=== PATIENT | male | born 1945 | race Hispanic/Latino ===

== ENCOUNTER 2018-08-12 15:59 | Observation (INO) | payer MEDICARE ==
--- NOTE | 2018-08-12 16:18 | Emergency Department Report ---
Alice Doc - Documentation Documentation: 73 yo with left foot surgery. 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 Reports foot pain and redness with swelling. C/o cp to mid chest that feels like pulling pain.Takes asa daily and took this morning Fels nausea Patient has DM on insulin, HTN, CAD with BYpass surgery. Poor historian EXT: rt foot with surgical wound. dorsal and plantar area. Erythema extending to rt ankle and ttp Lungs: CTAB his initial assessment diagnostic orders/clinical plan/treatment (s) is/Are subject change based on patient's health status, clinical progression and re- assessment by fellow clinical providers in the ED. Further treatment and work-up at subsequent clinical providers discetion. Patient/guardians urged not to elope from their condition may be serious if not clinically assessed and managed. Inital order include:Labs, xr, ekg
[2018-08-12 17:13] LABS: Basophils # (Auto) 0.2 K/mm3 (0.0-0.1); Basophils % (Auto) 1.7 % (0.0-1.8); Eosinophils # (Auto) 0.7 K/mm3 (0.0-0.4); Eosinophils % (Auto) 5.1 % (0.0-4.3); Hematocrit 43.9 % (35.5-45.6); Hemoglobin 14.9 gm/dl (11.8-15.2); Lymphocytes # (Auto) 3.5 K/mm3 (1.2-5.4); Lymphocytes % (Auto) 25.6 % (13.4-35.0); Mean Corpuscular HGB Conc 34 % (32-34); Mean Corpuscular Volume 84 fl (84-94); Monocytes # (Auto) 0.9 K/mm3 (0.0-0.8); Monocytes % (Auto) 6.6 % (0.0-7.3); Platelet Count 224 K/mm3 (140-440); Red Blood Count 5.23 M/mm3 (3.65-5.03); Red Cell Distribution Width 15.5 % (13.2-15.2)
[2018-08-12] MEDS ORDERED: PEPCID IV ONE (17:40)
[2018-08-12] MEDS ORDERED: BABY ASPIRIN PO ONE (17:40)
--- NOTE | 2018-08-12 17:40 | Emergency Department Report ---
ED Chest Pain HPI - General Chief Complaint: Chest Pain Stated Complaint: CHEST PAIN/FOOT PAIN Time Seen by Provider: 08/12/18 16:10 Source: patient, RN notes reviewed, old records reviewed Mode of arrival: Ambulatory Limitations: No Limitations - History of Present Illness Initial Comments: This is a 73-year-old gentleman. Patient typically follows with [facility]. The patient's past medical history includes heart disease, status post cardiac bypass, high cholesterol, diabetes, hypertension, chronic pain Patient received a cardiac catheterization in 2014, at this hospital, which demonstrated patent grafts, normal left ventricular function, diffuse arterial disease, risk factor modification was recommended at that time. He presents today with complaint of chest pain and burning. The pain is substernal and epigastric. It does not radiate to the back, arms or neck. There is no vomiting or diaphoresis. Patient denies shortness of breath. The patient denies DVT, pulmonary embolus risk factors. The pain started last nigh t. It is burning and "feels like indigestion." Patient endorses compliance with all his medications including aspirin. He endorses a secondary complaint of dorsal right foot erythema. It started w ithin the past 24 hours. His primary care doctor put him on Keflex. There is no antecedent trauma that he can recall. MD Complaint: chest pain, other -: Gradual, hour(s) Pain Location: substernal, epigastric Pain Radiation: none Severity: moderate Severity scale (0 -10): 7 Quality: other Consistency: intermittent Improves With: nothing Worsens With: nothing Aspirin use within the Past 7 Days: (1) Yes - Related Data On Oral Contraceptives: No Home Medications Medication Instructions Recorded Confirmed Last Taken ALPRAZolam [Xanax TAB] 1 mg PO TID PRN 11/28/13 05/21/15 05/20/15 Insulin Detemir [Levemir Flexpen] 60 units SQ HS 11/28/13 05/21/15 05/20/15 Insulin Lispro [HumaLOG VIAL] 20 units SQ TID 11/28/13 05/21/15 05/20/15 Methadone HCl 10 mg PO TID PRN 11/28/13 05/21/15 05/20/15 Aspirin [Aspirin BABY CHEW TAB] 81 mg PO QDAY 05/21/15 05/21/15 05/21/15 Chlorthalidone [Thalitone] 25 mg PO QDAY 05/21/15 05/21/15 05/20/15 Ezetimibe [Zetia] 10 mg PO QDAY 05/21/15 05/21/15 05/20/15 Fenofibrate [Tricor] 145 mg PO QDAY 05/21/15 05/21/15 05/20/15 Losartan [Cozaar] 100 mg PO QDAY 05/21/15 05/21/15 05/20/15 Metoprolol [Lopressor TAB] 12.5 mg PO BID 05/21/15 05/21/15 05/20/15 Allergies Allergy/AdvReac Type Severity Reaction Status Date / Time No Known Allergies Allergy Unverified 11/28/13 10:06 Heart Score - HEART Score History: Slightly suspicious EKG: Non-specific Age: > 65 Risk factors: > 3 risk factors or hx of atherosclerotic disease Troponin: < normal limit HEART Score: 5 - Critical Actions Critical Actions: 4-6 pts:12-16.6% risk of adverse cardiac event. Should be admitted ED Review of Systems ROS: Stated complaint: CHEST PAIN/FOOT PAIN Other details as noted in HPI Constitutional: denies: fever, malaise Eyes: denies: vision change ENT: denies: epistaxis Respiratory: denies: cough, shortness of breath Cardiovascular: chest pain Gastrointestinal: denies: nausea, vomiting Genitourinary: denies: dysuria Musculoskeletal: arthralgia, myalgia Skin: rash Neurological: denies: weakness Psychiatric: denies: anxiety ED Past Medical Hx - Past Medical History Hx Hypertension: Yes Hx Congestive Heart Failure: No Hx Diabetes: Yes Hx HIV: No - Surgical History Hx Open Heart Surgery: Yes Additional Surgical History: foot - Social History Smoking Status: Current Every Day Smoker Substance Use Type: None - Medications Home Medications: Home Medications Medication Instructions Recorded Confirmed Last Taken Type ALPRAZolam [Xanax TAB] 1 mg PO TID PRN 11/28/13 05/21/15 05/20/15 History Insulin Detemir [Levemir Flexpen] 60 units SQ HS 11/28/13 05/21/15 05/20/15 History Insulin Lispro [HumaLOG VIAL] 20 units SQ TID 11/28/13 05/21/15 05/20/15 History Methadone HCl 10 mg PO TID PRN 11/28/13 05/21/15 05/20/15 History Aspirin [Aspirin BABY CHEW TAB] 81 mg PO QDAY 05/21/15 05/21/15 05/21/15 History Chlorthalidone [Thalitone] 25 mg PO QDAY 05/21/15 05/21/15 05/20/15 History Ezetimibe [Zetia] 10 mg PO QDAY 05/21/15 05/21/15 05/20/15 History Fenofibrate [Tricor] 145 mg PO QDAY 05/21/15 05/21/15 05/20/15 History Losartan [Cozaar] 100 mg PO QDAY 05/21/15 05/21/15 05/20/15 History Metoprolol [Lopressor TAB] 12.5 mg PO BID 05/21/15 05/21/15 05/20/15 History ED Physical Exam - General Limitations: No Limitations General appearance: alert, in no apparent distress - Head Head exam: Present: atraumatic, normocephalic - Eye Eye exam: Present: normal appearance, EOMI. Absent: nystagmus - ENT ENT exam: Present: normal exam, normal orophraynx, mucous membranes moist, normal external ear exam - Neck Neck exam: Present: normal inspection, full ROM. Absent: tenderness, meningismus - Respiratory Respiratory exam: Present: normal lung sounds bilaterally. Absent: respiratory distress - Cardiovascular Cardiovascular Exam: Present: regular rate, normal rhythm, normal heart sounds. Absent: bradycardia, tachycardia, irregular rhythm, systolic murmur, diastolic murmur, rubs, gallop - GI/Abdominal GI/Abdominal exam: Present: soft. Absent: distended, tenderness, guarding, rebound, rigid, pulsatile mass - Rectal Rectal exam: Present: deferred - Extremities Exam Extremities exam: Present: full ROM, other (2+ pulses noted in the bilateral upper extremities. There is no long bony tenderness. Muscular compartments soft. Venous stasis discoloration noted in the bilateral lower extremities.). Absent: normal inspection (there is right dorsal foot erythema. There is no streaking. Compartment soft. No pus or streaking noted.) - Back Exam Back exam: Present: normal inspection, full ROM. Absent: tenderness, CVA tenderness (R), paraspinal tenderness, vertebral tenderness - Neurological Exam Neurological exam: Present: alert, oriented X3, CN II-XII intact, normal gait, other (Extraocular movements intact. Tongue midline. No facial droop. Facial sensation intact to light touch in the V1, V2, V3 distribution bilaterally. 5 and 5 strength in 4 extremities.. Sensation is intact to light touch in 4 extremities.). Absent: motor sensory deficit - Psychiatric Psychiatric exam: Present: normal affect, normal mood - Skin Skin exam: Present: warm, dry, erythema ED Course Vital Signs 08/12/18 16:09 Temperature 98 F Pulse Rate 78 Respiratory 16 Rate Blood Pressure 154/70 O2 Sat by Pulse 97 Oximetry - Reevaluation(s) Reevaluation #1: 08/12/18 18:32 Differential diagnosis, including but not limited to: GERD, gastritis, hiatal hernia, reflux, pneumonia, pneumothorax, acute coronary syndrome, right foot cellulitis, biliary disease Assessment and plan: 73-year-old gentleman with known coronary artery disease, who is not tachycardic, who is not hypoxic with no pulmonary embolus or DVT risk factors, is low risk by well's criteria. There is no right upper quadrant tenderness, and the patient has had elevated transaminases in the past. I doubt acute biliary disease clinically. There is a negative Crowley sign. A right upper quadrant ultrasound has been ordered. I will defer to the inpatient team to follow-up this test. Case discussed with covering cardiology, Dr. Billings, who agrees to see the patient in consultation. Patient has a simple dorsal uncomplicated right foot cellulitis and is currently taking Keflex. No evidence of systemic bacterial infection at this point in time, we will continue his Keflex. Case presented to the Hospital physician, Dr. Hogue, who accepts the patient to the medical service. HEMA score - Hema Score Age > 65: (1) Yes Aspirin use within the Past 7 Days: (1) Yes 3 or more CAD Risk Factors: (1) Yes 2 or more Angina events in past 24 hrs: (0) No Known CAD with more than 50% Stenosis: (1) Yes Elevated Cardiac Markers: (0) No ST Deviation Greater than 0.5mm: (0) No HEMA Score: 4 ED Medical Decision Making - Lab Data Result diagrams: 08/12/18 16:59 08/12/18 16:59 Vital Signs 08/12/18 16:09 Temperature 98 F Pulse Rate 78 Respiratory 16 Rate Blood Pressure 154/70 O2 Sat by Pulse 97 Oximetry Lab Results 08/12/18 08/12/18 Range/Units 16:59 16:59 WBC 13.5 H (4.5-11.0) K/mm3 RBC 5.23 H (3.65-5.03) M/mm3 Hgb 14.9 (11.8-15.2) gm/dl Hct 43.9 (35.5-45.6) % MCV 84 (84-94) fl MCH 29 (28-32) pg MCHC 34 (32-34) % RDW 15.5 H (13.2-15.2) % Plt Count 224 (140-440) K/mm3 Lymph % (Auto) 25.6 (13.4-35.0) % [place] % (Auto) 6.6 (0.0-7.3) % Eos % (Auto) 5.1 H (0.0-4.3) % Baso % (Auto) 1.7 (0.0-1.8) % Lymph # 3.5 (1.2-5.4) K/mm3 [place] # 0.9 H (0.0-0.8) K/mm3 Eos # 0.7 H (0.0-0.4) K/mm3 Baso # 0.2 H (0.0-0.1) K/mm3 Seg Neutrophils % 61.0 (40.0-70.0) % Seg Neutrophils # 8.3 H (1.8-7.7) K/mm3 Sodium 134 L (137-145) mmol/L Potassium 3.7 (3.6-5.0) mmol/L Chloride 95.7 L (98-107) mmol/L Carbon Dioxide 24 (22-30) mmol/L Anion Gap 18 mmol/L BUN 23 H (9-20) mg/dL Creatinine 1.4 (0.8-1.5) mg/dL Estimated GFR 50 ml/min BUN/Creatinine Ratio 16 % Glucose 258 H (75-100) mg/dL Calcium 9.5 (8.4-10.2) mg/dL Total Bilirubin 0.50 (0.1-1.2) mg/dL AST 110 H (5-40) units/L ALT 342 H (7-56) units/L Alkaline Phosphatase 173 H (35-129) units/L Troponin T < 0.010 (0.00-0.029) ng/mL Total Protein 7.1 (6.3-8.2) g/dL Albumin 4.1 (3.9-5) g/dL Albumin/Globulin Ratio 1.4 % - EKG Data -: EKG Interpreted by Me EKG shows normal: sinus rhythm Rate: normal - EKG Data 08/12/18 18:30 Sinus, 78 bpm, normal axis, QTC 448 ms, atrial enlargement, poor R wave progression, premature ventricular contractions, abnormal EKG, not consistent with ST elevation myocardial infarction, appears unchanged from prior EKG from 2015, with the exception of premature ventricular contractions. - Radiology Data Radiology results: pending, report reviewed, image reviewed interpreted by me: X-ray of the right foot suggests DJD, the distal end of the second metatarsal suggests erosion, possible subacute fracture. No foreign body noted, no obvious gas is noted. X-ray of the chest is negative for acute disease. Sternotomy, His findings are reviewed and appreciated. Critical care attestation.: If time is entered above; I have spent that time in minutes in the direct care of this critically ill patient, excluding procedure time. ED Disposition Clinical Impression: Chest pain, Diabetes, Cellulitis of right foot Disposition: OP ADMIT IP TO THIS HOSP Is pt being admited?: Yes Does the pt Need Aspirin: Yes Condition: Stable Instructions: Chest Pain (ED), Diabetes Mellitus Type 2 in Adults (ED) Referrals: PRIMARY CARE, [Primary Care Provider] - 3-5 Days
[2018-08-12] MEDS ORDERED: NITROSTAT SL PRN (17:41)
[2018-08-12] MEDS ORDERED: ALUM-MAG HYDROX-SIMETH 200-200-20MG/5ML PO ONE (17:41)
[2018-08-12] MEDS ORDERED: CARAFATE PO ONE (17:41)
[2018-08-12 18:02] LABS: Alanine Aminotransferase 342 units/L (7-56); Albumin 4.1 g/dL (3.9-5); BUN/Creatinine Ratio 16; Blood Urea Nitrogen 23 mg/dL (9-20); Calcium 9.5 mg/dL (8.4-10.2); Hemolysis Index 12
[2018-08-12] MEDS ORDERED: KEFLEX PO ONE (18:29)
--- NOTE | 2018-08-12 22:32 | XRay Report ---
XR FOOT 3+V RT CLINICAL INDICATION: Male, 73 years of age. foot pain/redness with recent surgery COMPARISON: None available. FINDINGS: 3 views right foot obtained. Bony irregularity of the second metatarsal head and proximal s econd phalanx. Some less likely postsurgical. Bony irregularities concerning for residual changes rel ated to infection. There is also subtle bony erosive changes at the medial margin of the third proxim al phalanx. Deformity of the third metatarsal head may be postsurgical. Mild narrowing of interphalangeal joints and first MTP joint. Small calcaneal spurs. IMPRESSION: 1. Portions of the second and third metatarsal heads are absent, possibly a surgical basis. Bony irre gularity at the second MTP joint and medial aspect of the proximal third phalanx are concerning for o steomyelitis. This document is electronically signed by Amber Roberts DO., August 12 2018 05:19:56 PM ET
--- NOTE | 2018-08-12 22:44 | XRay Report ---
PROCEDURE: XR CHEST ROUTINE 2V TECHNIQUE: PA and lateral chest radiographs were obtained. HISTORY: cp COMPARISONS: None. FINDINGS: There is no evidence of infiltrate, pneumothorax or pleural fluid collection. The cardiac is normal size. There is evidence of previous CABG procedure. There is atherosclerotic vascular calcification of the thoracic aorta. The bony structures are notable for median sternotomy wires in place. IMPRESSION: 1. No evidence of an acute pulmonary process. 2. Evidence of previous CABG procedure. This document is electronically signed by Dixie Cobos MD., August 12 2018 05:28:40 PM ET
[2018-08-12] MEDS ORDERED: MORPHINE IV PRN (23:11)
--- NOTE | 2018-08-12 23:20 | Ultrasound Report ---
PROCEDURE: US ABDOMEN LIMITED TECHNIQUE: Real-time sonography was performed of the right upper quadrant with image documentation. HISTORY: TRANSaminitis COMPARISON: None FINDINGS: Examination of the gallbladder demonstrates numerous echogenic shadowing mobile gallstones in the gal lbladder but no evidence for distention, wall thickening, or pericholecystic fluid. No sonographic M urphy's sign is elicited. Common bile duct is normal in diameter measuring 4.3 mm. The liver is normal and homogeneous in echogenicity without focal abnormality or intrahepatic biliary dilatation. The pancreas is not visualized due to bowel gas. The right kidney is normal in size without calculi or hydronephrosis. Right kidney measures 12.0 cm i n length. However, the echogenicity of the right kidney is slightly increased suggesting chronic medi jean pierre renal disease. Proximal aorta measures 2.2 cm in diameter. IMPRESSION: 1. Cholelithiasis without other findings of acute cholecystitis 2. Echogenicity right kidney is increased suggesting chronic medical renal disease This document is electronically signed by Denise Julian MD., August 12 2018 07:12:03 PM ET
[2018-08-13] MEDS ORDERED: DILAUDID IV PRN (00:15)
[2018-08-13] MEDS ORDERED: SODIUM CHLORIDE FLUSH SYRINGE 10 ML IV PRN (00:15)
[2018-08-13] MEDS ORDERED: ZOFRAN IV PRN (00:15)
[2018-08-13] MEDS ORDERED: PERCOCET 5/325 PO PRN (00:15)
[2018-08-13] MEDS: TYLENOL PO PRN ×2 (06:00→16:05)
[2018-08-13] MEDS: GLUCOPHAGE PO SCH ×2 (07:54→16:06)
--- NOTE | 2018-08-13 08:00 | History and Physical Report ---
History of Present Illness Date of examination: 08/12/18 Date of admission: 08/12/18 18:35 Chief complaint: Chest pain for 1 day History of present illness: 73-year-old gentleman.with past medical history of heart disease, status post cardiac bypass, high cholesterol, diabetes, hypertension, chronic received a cardiac catheterization in 2014, at this hospital, which demonstrated patent grafts, normal left ventricular function, diffuse arterial disease, risk factor modification was recommended at that time.Presents today with complaint of chest pain and burning. The pain is substernal and epigastric. It does not radiate to the back, arms or neck. There is no vomiting or diaphoresis. Patient denies shortness of breath. The patient denies DVT, pulmonary embolus risk factors. The pain started last night. It is burning and "feels like indigestion." Nacho dinora endorses compliance with all his medications including aspirin. Also complaints of dorsal right foot erythema. It started within the past 24 hours. His primary care doctor put him on Keflex. There is no antecedent trauma that he can recall. Past Medical History Hx Hypertension: Yes Hx Congestive Heart Failure: No Hx Diabetes: Yes Hx HIV: No Surgical History Hx Open Heart Surgery: Yes Additional Surgical History: foot Social History Smoking Status: Current Every Day Smoker Substance Use Type: None - Medications Home Medications: Home Medications Medication Instructions Recorded Confirmed Last Taken Type ALPRAZolam [Xanax TAB] 1 mg PO TID PRN 11/28/13 05/21/15 05/20/15 History Insulin Detemir [Levemir Flexpen] 60 units SQ HS 11/28/13 05/21/15 05/20/15 History Insulin Lispro [HumaLOG VIAL] 20 units SQ TID 11/28/13 05/21/15 05/20/15 History Methadone HCl 10 mg PO TID PRN 11/28/13 05/21/15 05/20/15 History Aspirin [Aspirin BABY CHEW TAB] 81 mg PO QDAY 05/21/15 05/21/15 05/21/15 History Chlorthalidone [Thalitone] 25 mg PO QDAY 05/21/15 05/21/15 05/20/15 History Ezetimibe [Zetia] 10 mg PO QDAY 05/21/15 05/21/15 05/20/15 History Fenofibrate [Tricor] 145 mg PO QDAY 05/21/15 05/21/15 05/20/15 History Losartan [Cozaar] 100 mg PO QDAY 05/21/15 05/21/15 05/20/15 History Metoprolol [Lopressor TAB] 12.5 mg PO BID 05/21/15 05/21/15 05/20/15 History Review of Systems ROS: Stated complaint: CHEST PAIN/FOOT PAIN Other details as noted in HPI Constitutional: denies: fever, malaise Eyes: denies: vision change ENT: denies: epistaxis Respiratory: denies: cough, shortness of breath Cardiovascular: chest pain Gastrointestinal: denies: nausea, vomiting Genitourinary: denies: dysuria Musculoskeletal: arthralgia, myalgia Skin: rash Neurological: denies: weakness Psychiatric: denies: anxiety Medications and Allergies Allergies Allergy/AdvReac Type Severity Reaction Status Date / Time No Known Allergies Allergy Unverified 11/28/13 10:06 Home Medications Medication Instructions Recorded Confirmed Last Taken Type ALPRAZolam [Xanax TAB] 1 mg PO TID PRN 11/28/13 08/12/18 05/20/15 History Insulin Detemir [Levemir Flexpen] 60 units SQ HS 11/28/13 08/12/18 05/20/15 History Insulin Lispro [HumaLOG VIAL] 20 units SQ TID 11/28/13 08/12/18 05/20/15 History Methadone HCl 10 mg PO TID PRN 11/28/13 08/12/18 05/20/15 History Aspirin [Aspirin BABY CHEW TAB] 81 mg PO QDAY 05/21/15 08/12/18 05/21/15 History Chlorthalidone [Thalitone] 25 mg PO QDAY 05/21/15 08/12/18 05/20/15 History Ezetimibe [Zetia] 10 mg PO QDAY 05/21/15 08/12/18 05/20/15 History Fenofibrate [Tricor] 145 mg PO QDAY 05/21/15 08/12/18 05/20/15 History Losartan [Cozaar] 100 mg PO QDAY 05/21/15 08/12/18 05/20/15 History Metoprolol [Lopressor TAB] 12.5 mg PO BID 05/21/15 08/12/18 05/20/15 History metFORMIN [Glucophage] 500 mg PO BID 08/12/18 08/12/18 Unknown History Active Meds: Active Medications Acetaminophen (Tylenol) 650 mg PO Q4H PRN PRN Reason: Pain MILD(1-3)/Fever >100.5/REBOLLEDO Last Admin: 08/13/18 06:00 Dose: 650 mg Documented by: Alprazolam (Xanax) 1 mg PO TID PRN PRN Reason: Anxiety Aspirin (Baby Aspirin) 81 mg PO QDAY [facility] Chlorthalidone (Thalitone) 25 mg PO QDAY [facility] Ezetimibe (Zetia) 10 mg PO QDAY [facility] Fenofibrate (Tricor) 145 mg PO QDAY [facility] Hydromorphone HCl (Dilaudid) 0.5 mg IV Q3H PRN PRN Reason: Pain , Severe (7-10) Insulin Glargine (Lantus) 60 units SUB-Q QHS [facility] Insulin Human Lispro (Humalog) 20 unit SUB-Q TIDAC [facility] Losartan Potassium (Cozaar) 100 mg PO QDAY [facility] Metformin HCl (Glucophage) 500 mg PO BIDDIAB [facility] Methadone HCl (Dolophine) 10 mg PO TID PRN PRN Reason: Pain Metoprolol Tartrate (Lopressor) 12.5 mg PO BID [facility] Morphine Sulfate (Morphine) 2 mg IV Q4H PRN PRN Reason: Pain, Moderate (4-6) Nitroglycerin (Nitrostat) 0.4 mg SL .Q5MIN PRN PRN Reason: Chest Pain Ondansetron HCl (Zofran) 4 mg IV Q8H PRN PRN Reason: Nausea And Vomiting Oxycodone/Acetaminophen (Percocet 5/325) 1 tab PO Q6H PRN PRN Reason: Pain, Moderate (4-6) Sodium Chloride (Sodium Chloride Flush Syringe 10 Ml) 10 ml IV BID [facility] Sodium Chloride (Sodium Chloride Flush Syringe 10 Ml) 10 ml IV PRN PRN PRN Reason: LINE FLUSH Exam - Constitutional Vitals: Temp Pulse Resp BP Pulse Ox 98.0 F 52 L 18 135/63 94 08/13/18 04:27 08/13/18 04:52 08/13/18 04:27 08/13/18 04:27 08/13/18 04:27 General appearance: Present: no acute distress, well-nourished - EENT Eyes: Present: PERRL ENT: hearing intact, clear oral mucosa - Neck Neck: Present: supple, normal ROM - Respiratory Respiratory effort: normal Respiratory: bilateral: CTA - Cardiovascular Heart rate: 78 Rhythm: regular Heart Sounds: Present: S1 & S2. Absent: rub, click - Extremities Extremities: no ischemia, pulses symmetrical, No edema Extremity abnormal: erythema (Rt Foot with impending abscess) Peripheral Pulses: within normal limits - Abdominal General gastrointestinal: Present: soft, non-tender, non-distended, normal bowel sounds Male genitourinary: Present: normal - Rectal Rectal Exam: deferred - Integumentary Integumentary: Present: clear, warm, dry - Musculoskeletal Musculoskeletal: gait normal, strength equal bilaterally - Psychiatric Psychiatric: appropriate mood/affect, intact judgment & insight - Neurologic Neurologic: CNII-XII intact, moves all extremities - Allied Health Allied health notes reviewed: nursing, case management Results - Labs CBC & Chem 7: 08/12/18 16:59 08/12/18 16:59 Labs: Laboratory Last Values WBC 13.5 K/mm3 (4.5-11.0) H 08/12/18 16:59 RBC 5.23 M/mm3 (3.65-5.03) H 08/12/18 16:59 Hgb 14.9 gm/dl (11.8-15.2) 08/12/18 16:59 Hct 43.9 % (35.5-45.6) 08/12/18 16:59 MCV 84 fl (84-94) 08/12/18 16:59 MCH 29 pg (28-32) 08/12/18 16:59 MCHC 34 % (32-34) 08/12/18 16:59 RDW 15.5 % (13.2-15.2) H 08/12/18 16:59 Plt Count 224 K/mm3 (140-440) 08/12/18 16:59 Lymph % (Auto) 25.6 % (13.4-35.0) 08/12/18 16:59 [place] % (Auto) 6.6 % (0.0-7.3) 08/12/18 16:59 Eos % (Auto) 5.1 % (0.0-4.3) H 08/12/18 16:59 Baso % (Auto) 1.7 % (0.0-1.8) 08/12/18 16:59 Lymph # 3.5 K/mm3 (1.2-5.4) 08/12/18 16:59 [place] # 0.9 K/mm3 (0.0-0.8) H 08/12/18 16:59 Eos # 0.7 K/mm3 (0.0-0.4) H 08/12/18 16:59 Baso # 0.2 K/mm3 (0.0-0.1) H 08/12/18 16:59 Seg Neutrophils % 61.0 % (40.0-70.0) 08/12/18 16:59 Seg Neutrophils # 8.3 K/mm3 (1.8-7.7) H 08/12/18 16:59 Sodium 134 mmol/L (137-145) L 08/12/18 16:59 Potassium 3.7 mmol/L (3.6-5.0) 08/12/18 16:59 Chloride 95.7 mmol/L (98-107) L 08/12/18 16:59 Carbon Dioxide 24 mmol/L (22-30) 08/12/18 16:59 Anion Gap 18 mmol/L 08/12/18 16:59 BUN 23 mg/dL (9-20) H 08/12/18 16:59 Creatinine 1.4 mg/dL (0.8-1.5) 08/12/18 16:59 Estimated GFR 50 ml/min 08/12/18 16:59 BUN/Creatinine Ratio 16 % 08/12/18 16:59 Glucose 258 mg/dL (75-100) H 08/12/18 16:59 POC Glucose 209 (70-105) H 08/13/18 07:22 Hemoglobin A1c 8.3 % (4-6) H 08/13/18 01:08 Calcium 9.5 mg/dL (8.4-10.2) 08/12/18 16:59 Total Bilirubin 0.50 mg/dL (0.1-1.2) 08/12/18 16:59 AST 110 units/L (5-40) H 08/12/18 16:59 ALT 342 units/L (7-56) H 08/12/18 16:59 Alkaline Phosphatase 173 units/L (35-129) H 08/12/18 16:59 Troponin T < 0.010 ng/mL (0.00-0.029) 08/12/18 16:59 Total Protein 7.1 g/dL (6.3-8.2) 08/12/18 16:59 Albumin 4.1 g/dL (3.9-5) 08/12/18 16:59 Albumin/Globulin Ratio 1.4 % 08/12/18 16:59 Lipase 47 units/L (13-60) 08/12/18 18:23 Short CBC 08/12/18 Range/Units 16:59 WBC 13.5 H (4.5-11.0) K/mm3 Hgb 14.9 (11.8-15.2) gm/dl Hct 43.9 (35.5-45.6) % Plt Count 224 (140-440) K/mm3 BMP 08/12/18 16:59 Sodium 134 L Potassium 3.7 Chloride 95.7 L Carbon Dioxide 24 BUN 23 H Creatinine 1.4 Glucose 258 H Calcium 9.5 Cardiac Enzymes 08/12/18 Range/Units 16:59 Troponin T < 0.010 (0.00-0.029) ng/mL Liver Function 08/12/18 Range/Units 16:59 Total Bilirubin 0.50 (0.1-1.2) mg/dL AST 110 H (5-40) units/L ALT 342 H (7-56) units/L Alkaline Phosphatase 173 H (35-129) units/L Albumin 4.1 (3.9-5) g/dL Assessment and Plan Advance Directives: Yes (Full code) VTE prophylaxis?: Chemical Plan of care discussed with patient/family: Yes - Patient Problems (1) Chest pain Current Visit: Yes Status: Acute Qualifiers: Chest pain type: unspecified Qualified Code(s): R07.9 - Chest pain, unspecified Plan to address problem: Chest pain r/o OR protocol (2) Cellulitis of right foot Current Visit: Yes Status: Acute Plan to address problem: Initiated on IV Unasyn and vancomycin Surgery consult for I/d (3) IDDM (insulin dependent diabetes mellitus) Current Visit: Yes Status: Chronic Plan to address problem: Cont home insulin and coverage (4) HTN (hypertension) Current Visit: Yes Status: Chronic Qualifiers: Hypertension type: essential hypertension Qualified Code(s): I10 - Essential (primary) hypertension Plan to address problem: Cont antihypertensives (5) HLD (hyperlipidemia) Current Visit: Yes Status: Chronic Qualifiers: Hyperlipidemia type: mixed hyperlipidemia Qualified Code(s): E78.2 - Mixed hyperlipidemia Plan to address problem: Cont Zetia and Fenofibrates (6) CAD (coronary artery disease) Current Visit: Yes Status: Chronic Qualifiers: Coronary Disease-Associated Artery/Lesion type: unspecified vessel or lesion type Plan to address problem: Cont ASA (7) DVT prophylaxis Current Visit: Yes Status: Acute Plan to address problem: On Lovenox and GI prophylaxis
[2018-08-13] MEDS ORDERED: VANCOMYCIN PHARMACY TO DOSE IV SCH (08:04)
[2018-08-13] MEDS: DOLOPHINE PO PRN ×2 (08:29→16:06)
[2018-08-13] MEDS: XANAX PO PRN ×2 (08:30→22:06)
[2018-08-13] MEDS: LOPRESSOR PO SCH ×2 (09:10→22:06)
[2018-08-13] MEDS: TRICOR PO SCH (09:10)
[2018-08-13] MEDS: ZETIA PO SCH (09:11)
[2018-08-13] MEDS: COZAAR PO SCH (09:12)
[2018-08-13] MEDS: HumaLOG SUB-Q SCH ×3 (09:14→16:13)
[2018-08-13] MEDS ORDERED: NON-FORMULARY (Losartan [Cozaar] 100 MG) PO SCH (10:00)
[2018-08-13] MEDS: VANCOMYCIN 1,250 MG in NACL 0.9% 250ML 250 ML IV SCH ×2 (10:11→22:05)
[2018-08-13] MEDS: THALITONE PO SCH (10:30)
[2018-08-13] MEDS: BABY ASPIRIN PO SCH (10:30)
[2018-08-13] MEDS: UNASYN/NS 3 GM/100 ML 3 GM/100 ML BAG IV SCH ×3 (11:20→17:23)
--- NOTE | 2018-08-13 11:59 | Event Note ---
Date: 08/13/18 Cardiology note dictated. Patient is followed by Dr. Chang in the office. #1 chest pain #2 coronary artery disease status post bypass surgery in 2013. Cardiac catheterization done in 2014 showed normal left ventricular function and patent grafts #3 hypertension #4 diabetes #5 hyperlipidemia #6 peripheral vascular disease followed by Dr. Rodarte #7 right foot redness and pain followed by Dr. Trejo was on antibiotic stated #8 LFT abnormalities. Will obtain nuclear stress test for further cardiac evaluation. Patient will be monitored and followed closely with you Thank you Dr. Hogue for me to participate in the care of this pleasant gentleman Dr. GUSTABO Castillo
[2018-08-13] MEDS: SODIUM CHLORIDE FLUSH SYRINGE 10 ML IV SCH ×2 (14:38→22:08)
--- NOTE | 2018-08-13 16:07 | Progress Note ---
Assessment and Plan - Patient Problems (1) Elevated transaminase level Current Visit: Yes Status: Acute Plan to address problem: Patient has gallstones but no acute cholelithiasis on exam. No acute symptoms. Granddaughter states these are old. Patient is not on a statin. Maybe this is why he does not take a statin for chronic elevated LFTs. Will obtain old records for further evaluation may require G.I. follow-up. (2) Cellulitis of right foot Current Visit: Yes Status: Acute Plan to address problem: Patient has chronic osteomyelitis right foot. Has received vancomycin while here. However patient has been treated with multiple surgeries and PO antib iotics would Dr. Trejo podiatry. This does not appear to be systemic would allow Dr. Trejo to continue treatment and follow-up with them at outpatient. (3) CAD (coronary artery disease) Current Visit: Yes Status: Chronic Qualifiers: Coronary Disease-Associated Artery/Lesion type: unspecified vessel or lesion type Plan to address problem: Patient with chest pain last stress test approximately one year ago. Patient well known to [facility]. Plan for stress tests in the AM. (4) Diabetes Current Visit: Yes Status: Chronic Plan to address problem: At present patient has fair control of his diabetes continue present management (5) HTN (hypertension) Current Visit: Yes Status: Chronic Qualifiers: Hypertension type: essential hypertension Qualified Code(s): I10 - Essential (primary) hypertension Plan to address problem: Hypertension also fairly well-controlled. Continue beta julio cesar and calcium channel julio cesar. (6) Hyperlipemia Current Visit: No Status: Chronic Plan to address problem: Will avoid statin for elevated LFTs. Continue tri-core. (7) Tobacco abuse Current Visit: No Status: Chronic (8) Chronic osteomyelitis Current Visit: Yes Status: Acute Plan to address problem: May require discharge PO medications. However it will follow up with Dr. Trejo since he is already treating this. History Interval history: Patient is a 70-year-old male with a history of coronary disease status post CABG, hyperlipidemia, diabetes, hypertension, chronic osteomyelitis presents originally for chief complaint of left foot redness in which he sees Dr. Trejo for chronic Osteomyelitis and Dr Rodarte for peripheral vascular disease Upon presentation for this patient experienceA typical type chest pain in which she describes as possible indigestion. Nonradiating mid epigastric pain six out of 10 not associate was shortness of breath or dyspnea on exertion. Patient had nausea no vomiting no diaphoresis. At present patient states he is chest pain free and foot pain is better to. Hospitalist Physical - Constitutional Vitals: Temp Pulse Resp BP Pulse Ox 98.2 F 52 L 18 103/43 94 08/13/18 12:37 08/13/18 04:52 08/13/18 12:37 08/13/18 12:37 08/13/18 04:27 General appearance: Present: no acute distress, well-nourished - EENT Eyes: Present: PERRL, EOM intact ENT: hearing intact, clear oral mucosa, dentition normal, no oropharyngeal erythema, no poor dentition, no thrush, no ulcerations, no edentulous - Neck Neck: Present: supple, normal ROM - Respiratory Respiratory effort: normal Respiratory: bilateral: CTA - Cardiovascular Rhythm: regular Heart Sounds: Present: systolic murmur - Extremities Extremities: normal temperature, abnormal Extremity abnormal: erythema, pulses diminished, other (Rubor) Peripheral Pulses: abnormal - Abdominal General gastrointestinal: soft, non-tender, non-distended, normal bowel sounds - Integumentary Integumentary: Present: clear, warm, dry - Psychiatric Psychiatric: appropriate mood/affect, cooperative - Neurologic Neurologic: CNII-XII intact, focal deficits, moves all extremities Results - Labs CBC & Chem 7: 08/12/18 16:59 08/12/18 16:59 Labs: Laboratory Last Values WBC 13.5 K/mm3 (4.5-11.0) H 08/12/18 16:59 RBC 5.23 M/mm3 (3.65-5.03) H 08/12/18 16:59 Hgb 14.9 gm/dl (11.8-15.2) 08/12/18 16:59 Hct 43.9 % (35.5-45.6) 08/12/18 16:59 MCV 84 fl (84-94) 08/12/18 16:59 MCH 29 pg (28-32) 08/12/18 16:59 MCHC 34 % (32-34) 08/12/18 16:59 RDW 15.5 % (13.2-15.2) H 08/12/18 16:59 Plt Count 224 K/mm3 (140-440) 08/12/18 16:59 Lymph % (Auto) 25.6 % (13.4-35.0) 08/12/18 16:59 [place] % (Auto) 6.6 % (0.0-7.3) 08/12/18 16:59 Eos % (Auto) 5.1 % (0.0-4.3) H 08/12/18 16:59 Baso % (Auto) 1.7 % (0.0-1.8) 08/12/18 16:59 Lymph # 3.5 K/mm3 (1.2-5.4) 08/12/18 16:59 [place] # 0.9 K/mm3 (0.0-0.8) H 08/12/18 16:59 Eos # 0.7 K/mm3 (0.0-0.4) H 08/12/18 16:59 Baso # 0.2 K/mm3 (0.0-0.1) H 08/12/18 16:59 Seg Neutrophils % 61.0 % (40.0-70.0) 08/12/18 16:59 Seg Neutrophils # 8.3 K/mm3 (1.8-7.7) H 08/12/18 16:59 Sodium 134 mmol/L (137-145) L 08/12/18 16:59 Potassium 3.7 mmol/L (3.6-5.0) 08/12/18 16:59 Chloride 95.7 mmol/L (98-107) L 08/12/18 16:59 Carbon Dioxide 24 mmol/L (22-30) 08/12/18 16:59 Anion Gap 18 mmol/L 08/12/18 16:59 BUN 23 mg/dL (9-20) H 08/12/18 16:59 Creatinine 1.4 mg/dL (0.8-1.5) 08/12/18 16:59 Estimated GFR 50 ml/min 08/12/18 16:59 BUN/Creatinine Ratio 16 % 08/12/18 16:59 Glucose 258 mg/dL (75-100) H 08/12/18 16:59 POC Glucose 191 (70-105) H 08/13/18 12:03 Hemoglobin A1c 8.3 % (4-6) H 08/13/18 01:08 Calcium 9.5 mg/dL (8.4-10.2) 08/12/18 16:59 Total Bilirubin 0.50 mg/dL (0.1-1.2) 08/12/18 16:59 AST 110 units/L (5-40) H 08/12/18 16:59 ALT 342 units/L (7-56) H 08/12/18 16:59 Alkaline Phosphatase 173 units/L (35-129) H 08/12/18 16:59 Troponin T < 0.010 ng/mL (0.00-0.029) 08/12/18 16:59 Total Protein 7.1 g/dL (6.3-8.2) 08/12/18 16:59 Albumin 4.1 g/dL (3.9-5) 08/12/18 16:59 Albumin/Globulin Ratio 1.4 % 08/12/18 16:59 Lipase 47 units/L (13-60) 08/12/18 18:23
[2018-08-13] MEDS ORDERED: LANTUS SUB-Q SCH (22:00)
[2018-08-13] MEDS ORDERED: INSULIN DETEMIR 60 UNIT SQ SCH (22:00)
--- NOTE | 2018-08-13 23:17 | Consultation ---
CARDIOLOGY EVALUATION HISTORY OF PRESENT ILLNESS: This 73-year-old gentleman is admitted with chest discomfort. The patient is complaining of chest discomfort as a dull pain with no significant radiation, not related to any activity. The patient initially came because he was concerned about his right foot, which has been managed and monitored by vascular surgeon, Dr. Rodarte and Dr. Trejo, the sales development consultant. He noticed some redness of the foot and the primary care apparently put him on Keflex recently and currently it is in a bandage. The patient is known to have had cerebrovascular disease and Dr. Rodarte has been following him for the same. The patient is also known to have coronary artery disease and he had a bypass surgery done in 2013. Cardiac catheterization done in 2014 showed a patent POPE to LAD and patent graft to circumflex. Left ventricular function was normal. He is usually followed by Dr. Caruso in the office and he was seen last week. He denies significant chest pain with exertion. No history of significant difficulty in breathing or palpitations. He does not recall when he had his last stress test. REVIEW OF SYSTEMS: HEAD, EYES, EARS, NOSE AND THROAT: No symptoms. ENDOCRINE: The patient is known to have diabetes. GASTROINTESTINAL: No abdominal pain, nausea, or vomiting. Bowel habits have been regular. GENITOURINARY: No symptoms. CENTRAL NERVOUS SYSTEM: No symptoms. PERSONAL HISTORY: Smokes 6-7 cigarettes a day. Nonalcoholic. PAST MEDICAL HISTORY: In addition to the previously mentioned problems, he is known to have had longstanding history of hypertension and hyperlipidemia. PAST SURGICAL HISTORY: Cardiac bypass surgery. The patient has a history of kidney stones in the remote past. PHYSICAL EXAMINATION: GENERAL: Adult gentleman, well built, well nourished, in no distress. Pleasant and cooperative. VITAL SIGNS: Heart rate 52, blood pressure 135/63. HEAD, EYES, EARS, NOSE AND THROAT: Unremarkable. NECK: Supple. No thyromegaly. Both carotids are palpable and equal. Neck veins are flat. CHEST: Symmetrical. LUNGS: Clear. HEART: S1, S2 are heard. No rubs, no S3. ABDOMEN: Soft and nontender, no hepatosplenomegaly. EXTREMITIES: No significant edema or calf tenderness. Right foot is in a dressing. LABORATORY DATA: EKG with sinus rhythm, unifocal PVCs, left atrial enlargement. WBC 15.5, hemoglobin 14.9, hematocrit 43.9. Sodium 134, potassium 3.7, BUN 23, creatinine 1.4, blood sugar 258. Troponin negative. AST, ALT and alkaline phosphatase are elevated. IMPRESSION: 1. Chest pain, somewhat atypical. 2. Coronary artery disease, status post coronary bypass surgery in 2013. Cardiac catheterization done in 2014 showed normal left ventricular function with patent grafts. 3. Diabetes. 4. Hypertension. 5. Hyperlipidemia. 6. Peripheral vascular disease followed by Dr. Rodarte. 7. Right foot problems, seen by Dr. Trejo. The patient was on antibiotics. Foot pain is better. The patient is seen for cardiac evaluation. Clinically, cardiac status is stable. We will obtain a nuclear stress test for further cardiac evaluation. The patient will be monitored and followed closely with you. Thank you, Dr. Hogue, for allowing me to participate in the care of this gentleman. JOB# [id number] EMILE/NTS
[2018-08-14] MEDS: UNASYN/NS 3 GM/100 ML 3 GM/100 ML BAG IV SCH ×3 (00:04→12:06)
[2018-08-14 05:35] LABS: Basophils # (Auto) 0.2 K/mm3 (0.0-0.1); Basophils % (Auto) 2.3 % (0.0-1.8); Eosinophils # (Auto) 0.8 K/mm3 (0.0-0.4); Eosinophils % (Auto) 9.3 % (0.0-4.3); Hematocrit 39.8 % (35.5-45.6); Hemoglobin 13.4 gm/dl (11.8-15.2); Lymphocytes # (Auto) 3.1 K/mm3 (1.2-5.4); Lymphocytes % (Auto) 37.4 % (13.4-35.0); Mean Corpuscular HGB Conc 34 % (32-34); Mean Corpuscular Volume 84 fl (84-94); Monocytes # (Auto) 0.6 K/mm3 (0.0-0.8); Monocytes % (Auto) 7.6 % (0.0-7.3); Platelet Count 175 K/mm3 (140-440); Red Blood Count 4.76 M/mm3 (3.65-5.03); Red Cell Distribution Width 15.9 % (13.2-15.2)
[2018-08-14 06:01] LABS: Alanine Aminotransferase 211 units/L (7-56); Albumin 3.4 g/dL (3.9-5); BUN/Creatinine Ratio 28; Blood Urea Nitrogen 28 mg/dL (9-20); Calcium 8.6 mg/dL (8.4-10.2); Hemolysis Index 9
[2018-08-14] MEDS: HumaLOG SUB-Q SCH ×2 (07:53→12:34)
[2018-08-14] MEDS: XANAX PO PRN (08:01)
[2018-08-14] MEDS ORDERED: LEXISCAN IV ONE ×2 (08:22→08:24)
[2018-08-14] MEDS: COZAAR PO SCH (10:07)
[2018-08-14] MEDS: BABY ASPIRIN PO SCH (10:07)
[2018-08-14] MEDS: LOPRESSOR PO SCH (10:07)
[2018-08-14] MEDS: GLUCOPHAGE PO SCH (10:08)
[2018-08-14] MEDS: ZETIA PO SCH (10:08)
[2018-08-14] MEDS: THALITONE PO SCH (10:08)
[2018-08-14] MEDS: TRICOR PO SCH (10:08)
--- NOTE | 2018-08-14 10:35 | Progress Note ---
Assessment and Plan S/p lexiscan MPI stress test this AM which was negative for ischemia, EF 49%. Plan to f/u echo as OP. Currently stable cardiac status. Chest pain resolved. Cont home cardiac regimen. Pt may discharge home from cardiology standpoint. Recommend follow up in our office with Dr. Simpson within 1-2 weeks of hospital discharge ([phone]). The patient has been seen in conjunction with Dr. Samuels who agrees with the assessment and plan of care. - Patient Problems (1) Chest pain Current Visit: Yes Status: Acute Qualifiers: Chest pain type: unspecified Qualified Code(s): R07.9 - Chest pain, unspeci fied (2) CAD (coronary artery disease) Current Visit: Yes Status: Chronic Qualifiers: Coronary Disease-Associated Artery/Lesion type: unspecified vessel or lesion type (3) History of coronary artery bypass graft Current Visit: Yes Status: Chronic (4) HTN (hypertension) Current Visit: Yes Status: Chronic Qualifiers: Hypertension type: essential hypertension Qualified Code(s): I10 - Essential (primary) hypertension (5) HLD (hyperlipidemia) Current Visit: Yes Status: Chronic Qualifiers: Hyperlipidemia type: mixed hyperlipidemia Qualified Code(s): E78.2 - Mixed hyperlipidemia (6) Diabetes Current Visit: Yes Status: Chronic (7) PVD (peripheral vascular disease) Current Visit: Yes Status: Chronic (8) Cellulitis of right foot Current Visit: Yes Status: Acute (9) Elevated LFTs Current Visit: Yes Status: Acute (10) Tobacco abuse Current Visit: Yes Status: Chronic Subjective Date of service: 08/14/18 Principal diagnosis: cp Interval history: pt for stress test. no current cardiac complaints. Objective Last Vital Signs Temp 98.8 F 08/14/18 06:02 Pulse 59 L 08/14/18 09:56 Resp 15 08/14/18 09:56 BP 128/52 08/14/18 09:56 Pulse Ox 97 08/14/18 09:56 - Physical Examination General: No Apparent Distress HEENT: Positive: PERRL, Normocephaly, Mucus Membranes Moist Neck: Positive: neck supple, trachea midline Cardiac: Positive: Reg Rate and Rhythm, S1/S2 Lungs: Positive: Decreased Breath Sounds Neuro: Positive: Grossly Intact Abdomen: Positive: Soft. Negative: Tender Skin: Negative: Rash, Wound Musculoskeletal: No Pain Extremities: Absent: edema - Labs and Meds Cardiac Enzymes 08/14/18 Range/Units 04:49 AST 48 H (5-40) units/L CBC 08/14/18 Range/Units 04:49 WBC 8.3 (4.5-11.0) K/mm3 RBC 4.76 (3.65-5.03) M/mm3 Hgb 13.4 (11.8-15.2) gm/dl Hct 39.8 (35.5-45.6) % Plt Count 175 (140-440) K/mm3 Lymph # 3.1 (1.2-5.4) K/mm3 [place] # 0.6 (0.0-0.8) K/mm3 Eos # 0.8 H (0.0-0.4) K/mm3 Baso # 0.2 H (0.0-0.1) K/mm3 Comprehensive Metabolic Panel 08/14/18 Range/Units 04:49 Sodium 140 (137-145) mmol/L Potassium 3.8 (3.6-5.0) mmol/L Chloride 102.1 (98-107) mmol/L Carbon Dioxide 26 (22-30) mmol/L BUN 28 H (9-20) mg/dL Creatinine 1.0 (0.8-1.5) mg/dL Glucose 277 H (75-100) mg/dL Calcium 8.6 (8.4-10.2) mg/dL AST 48 H (5-40) units/L ALT 211 H (7-56) units/L Alkaline Phosphatase 156 H (35-129) units/L Total Protein 6.0 L (6.3-8.2) g/dL Albumin 3.4 L (3.9-5) g/dL - Imaging and Cardiology EKG: report reviewed, image reviewed - Telemetry EKG Rhythm: Sinus Rhythm
--- NOTE | 2018-08-14 10:50 | Discharge Summary ---
Providers - Providers Date of Admission: 08/12/18 18:35 Attending physician: VICTOR M MELCHOR MD 08/12/18 17:40 Consult to Physician [CONS] Urgent Comment: Dr. Billings notified @ 18:01- [facility] Consulting Provider: EMMETT LENZ Physician Instructions: Reason For Exam: cp known to you 08/14/18 08:00 Consult to Wound/ET Nurse [CONS] Routine Reason For Exam: wound eval R foot Primary care physician: [employer] Hospitalization Reason for admission: chest pain Condition: Stable Pertinent studies: Stress test; negative for acute ischemia. Hospital course: Patient with history of CAD, diabetes was admitted for chest pain, catdiac enzymes were negative. Cardiology consulted and evaluated the patient and here is their recommendations. S/p lexiscan MPI stress test this AM which was negative for ischemia, EF 49%. Plan to f/u echo as OP. Currently stable cardiac status. Chest pain resolved. Cont home cardiac regimen. Pt may discharge home from cardiology standpoint. Recommend follow up in our office with Dr. Simpson within 1-2 weeks of hospital discharge ([phone]). Patient wants to go home and would like to follow with his PCP, vascular and Podiatry. I told him his blood sugar is high and he said he will continue his medications and doesn't want to stay to control his blood sugar to a reasonable level. Patient was hemodynamically stable at the time of discharge. Disposition: - TO HOME OR SELFCARE Time spent for discharge: 32 minutes - Discharge Diagnoses (1) Chest pain Status: Acute Qualifiers: Chest pain type: unspecified Qualified Code(s): R07.9 - Chest pain, unspecified (2) Chronic osteomyelitis Status: Chronic (3) Elevated LFTs Status: Chronic (4) CAD (coronary artery disease) Status: Chronic Qualifiers: Coronary Disease-Associated Artery/Lesion type: unspecified vessel or lesion type (5) Diabetes Status: Chronic (6) History of coronary artery bypass graft Status: Chronic (7) PVD (peripheral vascular disease) Status: Chronic Core Measure Documentation - Palliative Care Palliative Care/ Comfort Measures: Not Applicable - Core Measures Any of the following diagnoses?: none Exam - Constitutional Vitals: Temp Pulse Resp BP Pulse Ox 98.8 F 59 L 15 128/52 97 08/14/18 06:02 08/14/18 10:07 08/14/18 09:56 08/14/18 10:07 08/14/18 09:56 General appearance: Present: no acute distress - EENT Eyes: Present: PERRL, EOM intact ENT: hearing intact, clear oral mucosa, dentition normal - Neck Neck: Present: supple, normal ROM - Respiratory Respiratory effort: normal - Cardiovascular Rhythm: regular Heart Sounds: Present: S1 & S2 - Extremities Extremities: no ischemia Peripheral Pulses: within normal limits - Abdominal General gastrointestinal: Present: soft, non-tender, non-distended, normal bowel sounds Male genitourinary: Present: deferred - Integumentary Integumentary: Present: clear, warm, dry - Neurologic Neurologic: CNII-XII intact, moves all extremities - Allied Health Allied health notes reviewed: nursing, social work, case management Plan Activity: advance as tolerated Weight Bearing Status: Weight Bear as Tolerated Diet: low cholesterol, diabetic Wound: per your surgeon's advice, per wound nurse instructions Follow up with: JOO CHAKRABORTY MD [Primary Care Provider] - 3-5 Days MARCELINO VIGIL MD [Staff Physician] - 7 Days UNA LINTON MD [Staff Physician] - 7 Days
[2018-08-14 11:59] VITALS: BP 130/66
[2018-08-14] MEDS: VANCOMYCIN 1,250 MG in NACL 0.9% 250ML 250 ML IV SCH (12:05)
[2018-08-14] MEDS: SODIUM CHLORIDE FLUSH SYRINGE 10 ML IV SCH (12:06)
--- NOTE | 2018-08-14 13:04 | Treadmill Report ---
MYOCARDIAL PERFUSION IMAGING STUDIES Resting images revealed homogeneous radioisotope activity except for small area in the septal area. On post-Lexiscan, images revealed similar uptake. Ejection fraction was noted to be 49% on gated scan. There was no segmental motion abnormality noted. IMPRESSION: This test is negative for ischemia. Ejection fraction is lower limit of normal, namely 49%. JOB# [id number] ALICIA/DO
== END 2018-08-14 12:52 | disposition home or self-care (01) ==
LOC: ED 15:59 → 4A 18:35
PROVIDERS: ADMIT Internal Medicine; ATTEND Internal Medicine
DX: R07.89 Other chest pain (principal); E11.628 Type 2 diabetes mellitus with other skin complications; L03.115 Cellulitis of right lower limb; I10 Essential (primary) hypertension; I73.9 Peripheral vascular disease, unspecified; M86.9 Osteomyelitis, unspecified; R79.89 Other specified abnormal findings of blood chemistry; E78.5 Hyperlipidemia, unspecified; I25.10 Atherosclerotic heart disease of native coronary artery without angina pectoris; F17.200 Nicotine dependence, unspecified, uncomplicated; Z79.4 Long term (current) use of insulin; Z95.5 Presence of coronary angioplasty implant and graft; Z79.899 Other long term (current) drug therapy
CPT/HCPCS: 36415; 71046; 73630; 76705; 78452; 80053; 82962; 83036; 83690; 84484; 85025; 93005; 93010; 93017; 96365; 96366; 96368; 96372; 96375; 99284; 99406; A9502; G0378; J0295; J2785; J3370; J7050; 96367; 96374; J1815

== ENCOUNTER 2019-06-04 05:04 | Inpatient (IN) | payer MEDICARE ==
[2019-06-04] MEDS ORDERED: SODIUM CHLORIDE 0.9% 500 ML 500 ML IV ONE (05:55)
[2019-06-04] MEDS ORDERED: ONDANSETRON 4 MG/2 ML INJ IV ONE ×2 (05:55→07:38)
[2019-06-04] MEDS ORDERED: MORPHINE 4 MG/1 ML INJ IV ONE ×2 (05:55→06:11)
[2019-06-04 06:00] LABS: Basophils # (Auto) 0.1 K/mm3 (0.0-0.1); Eosinophils % (Auto) 0.3 % (0.0-4.3); Hematocrit 41.2 % (35.5-45.6); Hemoglobin 13.8 gm/dl (11.8-15.2); Mean Corpuscular HGB Conc 33 % (32-34); Mean Corpuscular Volume 91 fl (84-94); Monocytes # (Auto) 0.4 K/mm3 (0.0-0.8); Monocytes % (Auto) 3.3 % (0.0-7.3); Platelet Count 220 K/mm3 (140-440); Red Blood Count 4.53 M/mm3 (3.65-5.03); Red Cell Distribution Width 14.4 % (13.2-15.2)
--- NOTE | 2019-06-04 06:01 | Emergency Department Report ---
ED Abdominal Pain HPI - General Chief Complaint: Abdominal Pain Stated Complaint: ABD PAIN Time Seen by Provider: 06/04/19 05:52 Source: patient, family, EMS Mode of arrival: Stretcher Limitations: No Limitations - History of Present Illness Initial Comments: Mr. Churchill is a 72 yo male with hx of CAD s/p 3 vessel CABG, DM who presents via EMS with severe abdominal pain. Has had abdominal "soreness" for the past week. Has had several loose stools and vomiting. Now severe unbearable pain central, epigastric radiating to the back. 03/22, graduaal onset, became very severe this morning. Constant. No hx of abdominal surgery. PCP Dr. Elisha DRAPER Complaint: abdominal pain -: Gradual, week(s) (1), This morning (became severe this morning) Location: diffuse, epigastric Radiation: back Severity: severe Severity scale (0 -10): 10 Quality: aching, sharp, dull Consistency: constant Improves With: nothing Worsens With: nothing Associated Symptoms: nausea, vomiting - Related Data Home Medications Medication Instructions Recorded Confirmed Last Taken ALPRAZolam [Xanax TAB] 1 mg PO TID PRN 11/28/13 08/12/18 05/20/15 1 mg Insulin Detemir [Levemir Flexpen] 60 units SQ HS 11/28/13 08/12/18 05/20/15 35 units Insulin Lispro [HumaLOG VIAL] 20 units SQ TID 11/28/13 08/12/18 05/20/15 15 units Methadone HCl 10 mg PO TID PRN 11/28/13 08/12/18 05/20/15 10 mg Aspirin [Aspirin BABY CHEW TAB] 81 mg PO QDAY 05/21/15 08/12/18 05/21/15 Chlorthalidone [Thalitone] 25 mg PO QDAY 05/21/15 08/12/18 05/20/15 Ezetimibe [Zetia] 10 mg PO QDAY 05/21/15 08/12/18 05/20/15 Fenofibrate [Tricor] 145 mg PO QDAY 05/21/15 08/12/18 05/20/15 Losartan [Cozaar] 100 mg PO QDAY 05/21/15 08/12/18 05/20/15 Metoprolol [Lopressor TAB] 12.5 mg PO BID 05/21/15 08/12/18 05/20/15 metFORMIN [Glucophage] 500 mg PO BID 08/12/18 08/12/18 Unknown Allergies Allergy/AdvReac Type Severity Reaction Status Date / Time No Known Allergies Allergy Unverified 11/28/13 10:06 ED Review of Systems ROS: Stated complaint: ABD PAIN Other details as noted in HPI Comment: All other systems reviewed and negative Constitutional: denies: fever, malaise Respiratory: denies: cough Cardiovascular: denies: chest pain Gastrointestinal: abdominal pain, nausea, vomiting ED Past Medical Hx - Past Medical History Previous Medical History?: Yes Hx Hypertension: Yes Hx Congestive Heart Failure: No Hx Diabetes: Yes Hx HIV: No - Surgical History Hx Open Heart Surgery: Yes Additional Surgical History: foot - Social History Smoking Status: Current Every Day Smoker Substance Use Type: Alcohol - Medications Home Medications: Home Medications Medication Instructions Recorded Confirmed Last Taken Type ALPRAZolam [Xanax TAB] 1 mg PO TID PRN 11/28/13 08/12/18 05/20/15 History 1 mg Insulin Detemir [Levemir Flexpen] 60 units SQ HS 11/28/13 08/12/18 05/20/15 History 35 units Insulin Lispro [HumaLOG VIAL] 20 units SQ TID 11/28/13 08/12/18 05/20/15 History 15 units Methadone HCl 10 mg PO TID PRN 11/28/13 08/12/18 05/20/15 History 10 mg Aspirin [Aspirin BABY CHEW TAB] 81 mg PO QDAY 05/21/15 08/12/18 05/21/15 History Chlorthalidone [Thalitone] 25 mg PO QDAY 05/21/15 08/12/18 05/20/15 History Ezetimibe [Zetia] 10 mg PO QDAY 05/21/15 08/12/18 05/20/15 History Fenofibrate [Tricor] 145 mg PO QDAY 05/21/15 08/12/18 05/20/15 History Losartan [Cozaar] 100 mg PO QDAY 05/21/15 08/12/18 05/20/15 History Metoprolol [Lopressor TAB] 12.5 mg PO BID 05/21/15 08/12/18 05/20/15 History metFORMIN [Glucophage] 500 mg PO BID 08/12/18 08/12/18 Unknown History ED Physical Exam - General Limitations: No Limitations General appearance: alert, in distress (appears in severe pain rolling back and forth on the stretcher), other (jaundiced skin) - Head Head exam: Present: atraumatic, normocephalic - Eye Eye exam: Present: normal appearance, scleral icterus - ENT ENT exam: Present: mucous membranes moist - Neck Neck exam: Present: normal inspection, full ROM - Respiratory Respiratory exam: Present: normal lung sounds bilaterally. Absent: respiratory distress, wheezes, rales, stridor - Cardiovascular Cardiovascular Exam: Present: regular rate, normal rhythm, normal heart sounds. Absent: systolic murmur, diastolic murmur, rubs, gallop - GI/Abdominal GI/Abdominal exam: Present: soft, tenderness, guarding. Absent: distended, rebound, rigid - Rectal Rectal exam: Present: deferred - Extremities Exam Extremities exam: Present: normal inspection - Neurological Exam Neurological exam: Present: alert, oriented X3 - Psychiatric Psychiatric exam: Present: normal affect, anxious - Skin Skin exam: Present: warm, dry, intact, normal color. Absent: rash ED Course Vital Signs 06/04/19 06/04/19 06/04/19 05:12 05:15 05:16 Temperature 98.0 F Pulse Rate 48 L Respiratory 18 Rate Blood Pressure 159/61 159/61 176/50 O2 Sat by Pulse 99 99 99 Oximetry 06/04/19 06/04/19 06/04/19 05:30 05:46 06:00 Temperature Pulse Rate Respiratory Rate Blood Pressure 176/50 146/39 159/45 O2 Sat by Pulse 100 100 100 Oximetry 06/04/19 06/04/19 06/04/19 06:16 06:30 06:48 Temperature Pulse Rate Respiratory Rate Blood Pressure 150/49 150/49 146/39 O2 Sat by Pulse 99 99 100 Oximetry 06/04/19 07:00 Temperature Pulse Rate 46 L Respiratory 15 Rate Blood Pressure 145/57 O2 Sat by Pulse Oximetry ED Medical Decision Making - Lab Data Result diagrams: 06/04/19 05:27 06/04/19 05:27 - EKG Data 06/04/19 07:08 EKG obtained 005 Sinus bradycardia 45 beats a minute normal axis prolonged QT interval no significant ST elevation biphasic T waves in the anterior leads [address] depression in V4 V5 and V6 - Radiology Data Radiology results: report reviewed Gallbladder is distended with enhancement of the wall in reticulation of small amounts of surrounding fluid bile duct reported to be without signficant abnormality - Medical Decision Making Acute cholecystitis: Concern for biliary obstruction with elevated bilirubin and elevated alkaline phosphatase. Has had abnormal AST AST on previous labs in August Dr. Waldrop general surgeon consulted. She will make further treatment recommendations upon her evaluation. Dr. Root hospitalist will admit the patient. I provided bridging orders to [facility]. In the emergency Department Mr. Churchill was treated with IV fluid, IV antibiotics, IV anti-emetics, IV analgesics. I have updated the and patient regarding diagnosis and treatment plan. Critical care attestation.: If time is entered above; I have spent that time in minutes in the direct care of this critically ill patient, excluding procedure time. ED Disposition Clinical Impression: Acute cholecystitis, Biliary obstruction Disposition: OP ADMIT IP TO THIS HOSP Is pt being admited?: Yes Does the pt Need Aspirin: No Condition: Stable
[2019-06-04 06:02] LABS: Bilirubin,Urine NEG (Negative); Blood,Urine SM (Negative); Color,Urine Amber (Yellow); Protein,Urine <15 mg/dL mg/dL (Negative)
[2019-06-04 06:04] LABS: WBC,Urine < 1.0 /HPF (0.0-6.0)
[2019-06-04 06:23] LABS: Alanine Aminotransferase 161 units/L (7-56); Albumin 3.7 g/dL (3.9-5); BUN/Creatinine Ratio 23; Blood Urea Nitrogen 21 mg/dL (9-20); Calcium 9.7 mg/dL (8.4-10.2); Hemolysis Index 21
[2019-06-04] MEDS: HYDROmorphone 1 MG/1 ML INJ IV ONE ×2 (06:55→11:14)
--- NOTE | 2019-06-04 07:06 | Cat Scan Report ---
CT ABDOMEN AND PELVIS WITH CONTRAST INDICATION / CLINICAL INFORMATION: MAIN: MID abdominal pain, NAUSEA. 100 ML OMNIPAQUE 300. TECHNIQUE: Axial CT images were obtained through the abdomen and pelvis after 100 cc Omnipaque 300 milligrams pe rcent IV contrast. All CT scans at this location are performed using CT dose reduction for ALARA by means of automated exposure control. COMPARISON: None available. FINDINGS: LOWER CHEST: No significant abnormality. Small hiatal hernia is present LIVER: No significant abnormality. GALLBLADDER: Gallbladder is distended with enhancement of the wall as well as reticulation of fat and small amount surrounding fluid BILE DUCTS: No significant abnormality. PANCREAS: No significant abnormality. SPLEEN: No significant abnormality. ADRENALS: No significant abnormality. RIGHT KIDNEY and URETER: No significant abnormality. LEFT KIDNEY and URETER: No significant abnormality. STOMACH and SMALL BOWEL: No significant abnormality. COLON: Scattered diverticuli sigmoid colon. Moderate amount of feces is present in the rectum. APPENDIX: No significant abnormality. PERITONEUM: No free fluid. No free air. No fluid collection. LYMPH NODES: No significant adenopathy. AORTA and ARTERIES: Extensive calcified atherosclerotic plaque abdominal aorta is major branches IVC and VEINS: No significant abnormality. URINARY BLADDER: No significant abnormality. REPRODUCTIVE ORGANS: No significant abnormality. ADDITIONAL FINDINGS: None. SKELETAL SYSTEM: Degenerative changes lumbar spine IMPRESSION: 1. Abnormal appearance the gallbladder worrisome for acute cholecystitis 2. Scattered diverticula sigmoid colon 3. Small hiatal hernia Signer Name: Josesito Reynoso MD Signed: 06/04/2019 7:02 AM Workstation Name: [id number]
[2019-06-04] MEDS ORDERED: PIPERACIL/TAZOBACTA 4.5/NS 100 4.5 GM/100 ML VIAL IV ONE ×2 (07:12→09:14)
[2019-06-04] MEDS ORDERED: ONDANSETRON 4 MG/2 ML INJ IV PRN ×2 (09:00→11:25)
[2019-06-04] MEDS ORDERED: MORPHINE 2 MG/1 ML INJ ONE (11:07)
[2019-06-04] MEDS ORDERED: SODIUM CHLORIDE 0.9% 1000 ML 1,000 ML ONE (11:07)
[2019-06-04] MEDS: MORPHINE 2 MG/1 ML INJ IV PRN ×2 (11:10→14:19)
[2019-06-04] MEDS ORDERED: HYDROmorphone 1 MG/1 ML INJ ONE (11:18)
[2019-06-04] MEDS ORDERED: HYDROmorphone 1 MG/1 ML INJ IV PRN (11:21)
--- NOTE | 2019-06-04 11:24 | History and Physical Report ---
History of Present Illness Date of examination: 06/04/19 Date of admission: 06/04/19 07:52 Chief complaint: Abdominal pain, nausea, vomiting History of present illness: Patient is 74 yo with CAD s/p CABP, periphera artery disease, diabetes, hypertension. He presents with abdominal pain nausea and vomiting for 1 week. Abdominal pain worse on RUQ of abdomen. Pain is 10 out of 10 in intensity, dull pain, no radiation, worse on eating. He also has had repeated nausea and vomiting over same 1 week. He denies chest pain or shortness of breath. He was seen and evaluated in Emergency Department. CT Abdomen reveal acute cholecystitis. Surgeon was consulted. Will admit. Past History Past Medical History: CAD, diabetes, hypertension, other (Peripheral artery disease) Past Surgical History: CABG Social history: lives with family, smoking, full code. denies: alcohol abuse Family history: no significant family history Medications and Allergies Allergies Allergy/AdvReac Type Severity Reaction Status Date / Time No Known Allergies Allergy Unverified 11/28/13 10:06 Home Medications Medication Instructions Recorded Confirmed Last Taken Type ALPRAZolam [Xanax TAB] 1 mg PO TID PRN 11/28/13 06/04/19 05/20/15 History 1 mg Insulin Detemir [Levemir Flexpen] 40 units SQ HS 11/28/13 06/04/19 05/20/15 History 35 units Insulin Lispro [HumaLOG VIAL] 20 units SQ TID 11/28/13 06/04/19 05/20/15 History 15 units Methadone HCl 10 mg PO PRN PRN 11/28/13 06/04/19 05/20/15 History 10 mg Aspirin [Aspirin BABY CHEW TAB] 81 mg PO QDAY 05/21/15 06/04/19 06/03/19 09:00 History Chlorthalidone [Thalitone] 25 mg PO QDAY 05/21/15 06/04/19 05/20/15 History Ezetimibe [Zetia] 10 mg PO QDAY 05/21/15 06/04/19 05/20/15 History Fenofibrate [Tricor] 160 mg PO QDAY 05/21/15 06/04/19 05/20/15 History Losartan [Cozaar] 50 mg PO QDAY 05/21/15 06/04/19 06/03/19 09:00 History Metoprolol [Lopressor TAB] 12.5 mg PO BID 05/21/15 06/04/19 05/20/15 History metFORMIN [Glucophage] 500 mg PO BID 08/12/18 06/04/19 06/03/19 18:00 History Plavix 75 mg PO DAILY 06/04/19 06/04/19 06/03/19 09:00 History Active Meds: Active Medications Hydromorphone HCl (Dilaudid) 1 mg IV Q4H PRN PRN Reason: Pain , Severe (7-10) Piperacillin Sod/Tazobactam Sod (Zosyn/Ns 4.5gm/100ml) 4.5 gm in 100 mls @ 200 mls/hr IV Q8HR JF; Protocol Sodium Chloride (Nacl 0.9% 1000 Ml) 1,000 mls @ 100 mls/hr IV DIRECT JF Morphine Sulfate (Morphine) 2 mg IV Q3H PRN PRN Reason: Pain, Moderate (4-6) Last Admin: 06/04/19 11:10 Dose: 2 mg Documented by: Ondansetron HCl (Zofran) 4 mg IV Q8H PRN PRN Reason: Nausea And Vomiting Review of Systems All systems: negative (No fever, no chest pain, no cough. All other systems reviewed and are negative.) Exam - Physical Exam Narrative exam: Gen: In mild distress from abdominal pain, sitting up in bed HEENT: Normocephalic, atraumatic Neck: supple, no JVD Heart: S1 and S2 reg, no murmurs, rubs or gallop Lungs: Clear to auscultation, no wheezing Abd: soft, tender RUQ , non distended, normal BS Ext: No edema, no clubbing, no cyanosis Neuro: Awake,alert, oriented X 3, moves all ext - Constitutional Vitals: Temp Pulse Resp BP Pulse Ox 98.0 F 55 L 17 164/52 100 06/04/19 05:15 06/04/19 09:00 06/04/19 09:00 06/04/19 11:19 06/04/19 08:09 Results - Labs CBC & Chem 7: 06/04/19 05:27 06/05/19 04:18 Labs: Abnormal lab results 06/04/19 06/04/19 06/04/19 Range/Units 05:27 05:27 05:27 WBC 13.5 H (4.5-11.0) K/mm3 Seg Neutrophils % 80.4 H (40.0-70.0) % Seg Neutrophils # 10.9 H (1.8-7.7) K/mm3 Sodium 135 L (137-145) mmol/L Potassium 3.5 L (3.6-5.0) mmol/L Chloride 97.2 L (98-107) mmol/L BUN 21 H (9-20) mg/dL Glucose 313 H (75-100) mg/dL Total Bilirubin 3.90 H (0.1-1.2) mg/dL AST 52 H (5-40) units/L ALT 161 H (7-56) units/L Alkaline Phosphatase 268 H (35-129) units/L Albumin 3.7 L (3.9-5) g/dL Lipase 70 H (13-60) units/L Assessment and Plan Acute cholecystitis Admit Surgeon consulted NPO iv fluids Dilaudid iv prn for pain Zosyn CAD s/p CABG No chest pain Cardiology consulted for clearance Will get EKG Diabetes mellitus typpe 2 Fingerstick q 6h HTN Monitor Hyponatremia Hypokalemia Replace and recheck Sinus bradycardia Hold Metoprolol Hyperlipidemia PAD Full code status Discussed with patient and family at bedside
[2019-06-04] MEDS ORDERED: ACETAMINOPHEN 325 MG TAB PO PRN (11:25)
[2019-06-04] MEDS: POTASSIUM CHLORIDE 10 MEQ 10 MEQ/100 ML BAG IV SCH ×2 (12:10→13:20)
[2019-06-04] MEDS: PIPERACIL/TAZOBACTA 4.5/NS 100 4.5 GM/100 ML VIAL IV SCH ×2 (14:20→21:43)
--- NOTE | 2019-06-04 14:27 | Gastroenterology Consultation ---
<KVNG COTE - Last Filed: 06/04/19 14:28> History of Present Illness - Reason for Consult Consult date: 06/04/19 abd pain, elevated LFTS Requesting physician: CHRISS OHARA - History of Present Illness Mr Churchill is a 74 y/o male admitted with reports of severe abdominal pain with associated N/V and loose stool over the past 3-4 days. His pain increased and he presented to the ED. CT of A/P notable for distended GB and possible acute cholecystits. LFTS are elevated ( elevated in 08/2018). His pain is on the right side and radiates around his abdomen and into his back. No prior hx of liver disease or ETOH use. MRCP ordered, however, the patient was not able to tolerate. PMH significant for CAD, 3 vessel CABG, DM and chronic pain on methadone. Lipase 70, WBC 13K. GI has been consulted for abd pain and elevated LFTS. US in 08/2018 with Past History Past Medical History: CAD, diabetes, hypertension, other (Peripheral artery disease) Past Surgical History: CABG Social history: lives with family, smoking, full code. denies: alcohol abuse Family history: no significant family history Medications and Allergies Allergies Allergy/AdvReac Type Severity Reaction Status Date / Time No Known Allergies Allergy Unverified 11/28/13 10:06 Home Medications Medication Instructions Recorded Confirmed Last Taken Type ALPRAZolam [Xanax TAB] 1 mg PO TID PRN 11/28/13 06/04/19 05/20/15 History 1 mg Insulin Detemir [Levemir Flexpen] 40 units SQ HS 11/28/13 06/04/19 05/20/15 History 35 units Insulin Lispro [HumaLOG VIAL] 20 units SQ TID 11/28/13 06/04/19 05/20/15 History 15 units Methadone HCl 10 mg PO PRN PRN 11/28/13 06/04/19 05/20/15 History 10 mg Aspirin [Aspirin BABY CHEW TAB] 81 mg PO QDAY 05/21/15 06/04/19 06/03/19 09:00 History Chlorthalidone [Thalitone] 25 mg PO QDAY 05/21/15 06/04/19 05/20/15 History Ezetimibe [Zetia] 10 mg PO QDAY 05/21/15 06/04/1905/20/15 History Fenofibrate [Tricor] 160 mg PO QDAY 05/21/15 06/04/19 05/20/15 History Losartan [Cozaar] 50 mg PO QDAY 05/21/15 06/04/19 06/03/19 09:00 History Metoprolol [Lopressor TAB] 12.5 mg PO BID 05/21/15 06/04/19 05/20/15 History metFORMIN [Glucophage] 500 mg PO BID 08/12/18 06/04/19 06/03/19 18:00 History Plavix 75 mg PO DAILY 06/04/19 06/04/19 06/03/19 09:00 History Active Meds: Active Medications Acetaminophen (Tylenol) 650 mg PO Q4H PRN PRN Reason: Pain MILD(1-3)/Fever >100.5/REBOLLEDO Hydromorphone HCl (Dilaudid) 1 mg IV Q4H PRN PRN Reason: Pain , Severe (7-10) Piperacillin Sod/Tazobactam Sod (Zosyn/Ns 4.5gm/100ml) 4.5 gm in 100 mls @ 200 mls/hr IV Q8HR JF; Protocol Sodium Chloride (Nacl 0.9% 1000 Ml) 1,000 mls @ 100 mls/hr IV DIRECT JF Morphine Sulfate (Morphine) 2 mg IV Q3H PRN PRN Reason: Pain, Moderate (4-6) Last Admin: 06/04/19 11:10 Dose: 2 mg Documented by: Ondansetron HCl (Zofran) 4 mg IV Q8H PRN PRN Reason: Nausea And Vomiting Sodium Chloride (Sodium Chloride Flush Syringe 10 Ml) 10 ml IV BID JF Sodium Chloride (Sodium Chloride Flush Syringe 10 Ml) 10 ml IV PRN PRN PRN Reason: LINE FLUSH Review of Systems - Review of Systems All systems: negative Gastrointestinal: abdominal pain, nausea, vomiting Exam - Constitutional Vital Signs: Temp Pulse Resp BP Pulse Ox 97.1 F L 100 H 18 149/46 100 06/04/19 12:10 06/04/19 12:10 06/04/19 12:47 06/04/19 11:49 06/04/19 12:47 General appearance: mild distress - EENT Eyes: EOM intact ENT: hearing intact - Neck Neck: supple - Respiratory Respiratory: bilateral: diminished - Cardiovascular Rhythm: regular Heart Sounds: Present: S1 & S2 Extremities: Full ROM - Gastrointestinal General gastrointestinal: Present: soft, tender, distended Rectal Exam: deferred - Integumentary Integumentary: Present: warm, dry - Neurologic Neurological: alert and oriented x3 - Psychiatric Psychiatric: cooperative - Labs CBC & Chem 7: 06/04/19 05:27 06/04/19 05:27 Lab Results: Laboratory Results - last 24 hr 06/04/19 06/04/19 06/04/19 05:27 05:27 05:27 WBC 13.5 H RBC 4.53 Hgb 13.8 Hct 41.2 MCV 91 MCH 30 MCHC 33 RDW 14.4 Plt Count 220 Lymph % (Auto) 15.0 [place] % (Auto) 3.3 Eos % (Auto) 0.3 Baso % (Auto) 1.0 Lymph # 2.0 [place] # 0.4 Eos # 0.0 Baso # 0.1 Seg Neutrophils % 80.4 H Seg Neutrophils # 10.9 H Sodium 135 L Potassium 3.5 L Chloride 97.2 L Carbon Dioxide 23 Anion Gap 18 BUN 21 H Creatinine 0.9 Estimated GFR > 60 BUN/Creatinine Ratio 23 Glucose 313 H POC Glucose Calcium 9.7 Total Bilirubin 3.90 H AST 52 H ALT 161 H Alkaline Phosphatase 268 H Troponin T Total Protein 6.8 Albumin 3.7 L Albumin/Globulin Ratio 1.2 Lipase 70 H Urine Color Urine Turbidity Urine pH Ur Specific [place] Urine Protein Urine Glucose (UA) Urine Ketones Urine Blood Urine Nitrite Urine Bilirubin Urine Urobilinogen Ur Leukocyte Esterase Urine WBC (Auto) Urine RBC (Auto) U Epithel Cells (Auto) 06/04/19 06/04/19 06/04/19 05:27 05:39 12:21 WBC RBC Hgb Hct MCV MCH MCHC RDW Plt Count Lymph % (Auto) [place] % (Auto) Eos % (Auto) Baso % (Auto) Lymph # [place] # Eos # Baso # Seg Neutrophils % Seg Neutrophils # Sodium Potassium Chloride Carbon Dioxide Anion Gap BUN Creatinine Estimated GFR BUN/Creatinine Ratio Glucose POC Glucose 269 H Calcium Total Bilirubin AST ALT Alkaline Phosphatase Troponin T < 0.010 Total Protein Albumin Albumin/Globulin Ratio Lipase Urine Color [place] Urine Turbidity Clear Urine pH 5.0 Ur Specific [place] 1.021 Urine Protein <15 mg/dl Urine Glucose (UA) >=500 Urine Ketones Tr Urine Blood Sm Urine Nitrite Neg Urine Bilirubin Neg Urine Urobilinogen 2.0 Ur Leukocyte Esterase Neg Urine WBC (Auto) < 1.0 Urine RBC (Auto) 3.0 U Epithel Cells (Auto) < 1.0 Assessment and Plan 1. Abdominal Pain 2. Elevated LFTS 3. CAD - Concern for acute cholecystitis. Choledocholelithiasis is also a concern with elevated LFTS, however AST/ ALT / ALk Alk Phos also elevated in 08/2018. No hx of liver disease. TB increased >3. Pt was unable to complete MRCP. Suspect pain is related to gb, however could be a passed/ retained stone. Currently WBC 13K, the patient is afebrile, and HR is bradycardic. No clear signs of cholangitis. Lipase less than twice/ normal and pancreas looks benign on CT. Monitor closely. Surgical consult pending. IF pt has CCY, recommend IOC. Currently on Zosyn IV. NPO for now until seen by surgery. - Will check Hepatitis panel and further workup if LFTS remain elevated. - Cardiology following - Further recommendations to follow. ALEXANDRE Shaikh- <RUPA MCBRIDE - Last Filed: 06/04/19 19:35> History of Present Illness - History of Present Illness home meds updated reconciled and reviewed Medications and Allergies Active Meds: Active Medications Acetaminophen (Tylenol) 650 mg PO Q4H PRN PRN Reason: Pain MILD(1-3)/Fever >100.5/REBOLLEDO Hydromorphone HCl (Dilaudid) 1 mg IV Q3H PRN PRN Reason: Pain, Moderate (4-6) Hydromorphone HCl (Dilaudid) 2 mg IV Q3H PRN PRN Reason: Pain , Severe (7-10) Last Admin: 06/04/19 17:05 Dose: 2 mg Documented by: Piperacillin Sod/Tazobactam Sod (Zosyn/Ns 4.5gm/100ml) 4.5 gm in 100 mls @ 200 mls/hr IV Q8HR JF; Protocol Last Admin: 06/04/19 14:20 Dose: 200 mls/hr Documented by: Sodium Chloride (Nacl 0.9% 1000 Ml) 1,000 mls @ 100 mls/hr IV DIRECT JF Lorazepam (Ativan) 1 mg IV Q8H PRN PRN Reason: Anxiety Ondansetron HCl (Zofran) 4 mg IV Q6H PRN PRN Reason: Nausea And Vomiting Last Admin: 06/04/19 17:05 Dose: 4 mg Documented by: Sodium Chloride (Sodium Chloride Flush Syringe 10 Ml) 10 ml IV BID JF Sodium Chloride (Sodium Chloride Flush Syringe 10 Ml) 10 ml IV PRN PRN PRN Reason: LINE FLUSH Exam - Constitutional Vital Signs: Temp Pulse Resp BP Pulse Ox 97.1 F L 100 H 18 149/46 100 06/04/19 12:10 06/04/19 12:10 06/04/19 17:05 06/04/19 11:49 06/04/19 12:47 - Labs CBC & Chem 7: 06/04/19 05:27 06/04/19 05:27 Lab Results: Laboratory Results - last 24 hr 06/04/19 06/04/19 06/04/19 05:27 05:27 05:27 WBC 13.5 H RBC 4.53 Hgb 13.8 Hct 41.2 MCV 91 MCH 30 MCHC 33 RDW 14.4 Plt Count 220 Lymph % (Auto) 15.0 [place] % (Auto) 3.3 Eos % (Auto) 0.3 Baso % (Auto) 1.0 Lymph # 2.0 [place] # 0.4 Eos # 0.0 Baso # 0.1 Seg Neutrophils % 80.4 H Seg Neutrophils # 10.9 H Sodium 135 L Potassium 3.5 L Chloride 97.2 L Carbon Dioxide 23 Anion Gap 18 BUN 21 H Creatinine 0.9 Estimated GFR > 60 BUN/Creatinine Ratio 23 Glucose 313 H POC Glucose Calcium 9.7 Total Bilirubin 3.90 H AST 52 H ALT 161 H Alkaline Phosphatase 268 H Troponin T Total Protein 6.8 Albumin 3.7 L Albumin/Globulin Ratio 1.2 Lipase 70 H Urine Color Urine Turbidity Urine pH Ur Specific [place] Urine Protein Urine Glucose (UA) Urine Ketones Urine Blood Urine Nitrite Urine Bilirubin Urine Urobilinogen Ur Leukocyte Esterase Urine WBC (Auto) Urine RBC (Auto) U Epithel Cells (Auto) 06/04/19 06/04/19 06/04/19 05:27 05:39 12:21 WBC RBC Hgb Hct MCV MCH MCHC RDW Plt Count Lymph % (Auto) [place] % (Auto) Eos % (Auto) Baso % (Auto) Lymph # [place] # Eos # Baso # Seg Neutrophils % Seg Neutrophils # Sodium Potassium Chloride Carbon Dioxide Anion Gap BUN Creatinine Estimated GFR BUN/Creatinine Ratio Glucose POC Glucose 269 H Calcium Total Bilirubin AST ALT Alkaline Phosphatase Troponin T < 0.010 Total Protein Albumin Albumin/Globulin Ratio Lipase Urine Color [place] Urine Turbidity Clear Urine pH 5.0 Ur Specific [place] 1.021 Urine Protein <15 mg/dl Urine Glucose (UA) >=500 Urine Ketones Tr Urine Blood Sm Urine Nitrite Neg Urine Bilirubin Neg Urine Urobilinogen 2.0 Ur Leukocyte Esterase Neg Urine WBC (Auto) < 1.0 Urine RBC (Auto) 3.0 U Epithel Cells (Auto) < 1.0 Assessment and Plan Patient seen and examined. I have reviewed the advanced practitioner's evaluation, assessment, and plan, and agree with them. I note the following additions: Patient with diffuse abdominal tenderness to palpation in however he is not septic appearing, recommend proceeding with cholecystectomy ideally with intraoperative cholangiogram to ensure no choledocholithiasis If there is concern for choledocholithiasis, please call us back for ERCP evaluation Otherwise, GI will sign off - Patient Problems (1) Generalized abdominal pain Current Visit: Yes Status: Acute (2) Acute cholecystitis Current Visit: Yes Status: Acute (3) Elevated LFTs Current Visit: No Status: Chronic
--- NOTE | 2019-06-04 14:36 | Consultation ---
History of Present Illness Consult date: 06/04/19 Past History Past Medical History: CAD, diabetes, hypertension, other (Peripheral artery disease) Past Surgical History: CABG Social history: lives with family, smoking, full code. denies: alcohol abuse Family history: no significant family history Medications and Allergies Allergies Allergy/AdvReac Type Severity Reaction Status Date / Time No Known Allergies Allergy Unverified 11/28/13 10:06 Home Medications Medication Instructions Recorded Confirmed Last Taken Type ALPRAZolam [Xanax TAB] 1 mg PO TID PRN 11/28/13 06/04/19 05/20/15 History 1 mg Insulin Detemir [Levemir Flexpen] 40 units SQ HS 11/28/13 06/04/19 05/20/15 History 35 units Insulin Lispro [HumaLOG VIAL] 20 units SQ TID 11/28/13 06/04/19 05/20/15 History 15 units Methadone HCl 10 mg PO PRN PRN 11/28/13 06/04/19 05/20/15 History 10 mg Aspirin [Aspirin BABY CHEW TAB] 81 mg PO QDAY 05/21/15 06/04/19 06/03/19 09:00 History Chlorthalidone [Thalitone] 25 mg PO QDAY 05/21/15 06/04/19 05/20/15 History Ezetimibe [Zetia] 10 mg PO QDAY 05/21/15 06/04/19 05/20/15 History Fenofibrate [Tricor] 160 mg PO QDAY 05/21/15 06/04/19 05/20/15 History Losartan [Cozaar] 50 mg PO QDAY 05/21/15 06/04/19 06/03/19 09:00 History Metoprolol [Lopressor TAB] 12.5 mg PO BID 05/21/15 06/04/19 05/20/15 History metFORMIN [Glucophage] 500 mg PO BID 08/12/18 06/04/19 06/03/19 18:00 History Plavix 75 mg PO DAILY 06/04/19 06/04/19 06/03/19 09:00 History Active Meds: Active Medications Acetaminophen (Tylenol) 650 mg PO Q4H PRN PRN Reason: Pain MILD(1-3)/Fever >100.5/REBOLLEDO Hydromorphone HCl (Dilaudid) 1 mg IV Q4H PRN PRN Reason: Pain , Severe (7-10) Piperacillin Sod/Tazobactam Sod (Zosyn/Ns 4.5gm/100ml) 4.5 gm in 100 mls @ 200 mls/hr IV Q8HR JF; Protocol Last Admin: 06/04/19 14:20 Dose: 200 mls/hr Documented by: Sodium Chloride (Nacl 0.9% 1000 Ml) 1,000 mls @ 100 mls/hr IV DIRECT JF Morphine Sulfate (Morphine) 2 mg IV Q3H PRN PRN Reason: Pain, Moderate (4-6) Last Admin: 06/04/19 14:19 Dose: 2 mg Documented by: Ondansetron HCl (Zofran) 4 mg IV Q8H PRN PRN Reason: Nausea And Vomiting Sodium Chloride (Sodium Chloride Flush Syringe 10 Ml) 10 ml IV BID JF Sodium Chloride (Sodium Chloride Flush Syringe 10 Ml) 10 ml IV PRN PRN PRN Reason: LINE FLUSH Physical Examination Vital Signs BP Pulse Ox 159/61 99 06/04/19 05:12 06/04/19 05:12 Results 06/04/19 05:27 06/04/19 05:27 Cardiac Enzymes 06/04/19 Range/Units 05:27 AST 52 H (5-40) units/L CBC 06/04/19 Range/Units 05:27 WBC 13.5 H (4.5-11.0) K/mm3 RBC 4.53 (3.65-5.03) M/mm3 Hgb 13.8 (11.8-15.2) gm/dl Hct 41.2 (35.5-45.6) % Plt Count 220 (140-440) K/mm3 Lymph # 2.0 (1.2-5.4) K/mm3 [place] # 0.4 (0.0-0.8) K/mm3 Eos # 0.0 (0.0-0.4) K/mm3 Baso # 0.1 (0.0-0.1) K/mm3 Comprehensive Metabolic Panel 06/04/19 Range/Units 05:27 Sodium 135 L (137-145) mmol/L Potassium 3.5 L (3.6-5.0) mmol/L Chloride 97.2 L (98-107) mmol/L Carbon Dioxide 23 (22-30) mmol/L BUN 21 H (9-20) mg/dL Creatinine 0.9 (0.8-1.5) mg/dL Glucose 313 H (75-100) mg/dL Calcium 9.7 (8.4-10.2) mg/dL AST 52 H (5-40) units/L ALT 161 H (7-56) units/L Alkaline Phosphatase 268 H (35-129) units/L Total Protein 6.8 (6.3-8.2) g/dL Albumin 3.7 L (3.9-5) g/dL Assessment and Plan Detailed Cardiology consult dictated.
--- NOTE | 2019-06-04 15:28 | Consultation ---
History of Present Illness Consult date: 06/04/19 Reason for consult: abdominal pain Chief complaint: abdominal pain - History of present illness History of present illness: 74 yo M with hx of CAD s/p CABG 5 years ago, on plavix presents to ER with 2 wee ks history of gradually worsening abdominal pain. The pain was severe last night and is the reason he came to the ER. He has had n/v. No f/c, cp, sob. He has never had pain like this before. No history of etoh abuse. Patient is on methadone and xanax at home. Skin has become more yellow over the last week and patient states his urine is dark. Past History Past Medical History: CAD, diabetes, hypertension, other (Peripheral artery disease) Past Surgical History: CABG Social history: lives with family, smoking, full code. denies: alcohol abuse Family history: no significant family history Medications and Allergies Allergies Allergy/AdvReac Type Severity Reaction Status Date / Time No Known Allergies Allergy Unverified 11/28/13 10:06 Home Medications Medication Instructions Recorded Confirmed Last Taken Type ALPRAZolam [Xanax TAB] 1 mg PO TID PRN 11/28/13 06/04/19 05/20/15 History 1 mg Insulin Detemir [Levemir Flexpen] 40 units SQ HS 11/28/13 06/04/19 05/20/15 History 35 units Insulin Lispro [HumaLOG VIAL] 20 units SQ TID 11/28/13 06/04/19 05/20/15 History 15 units Methadone HCl 10 mg PO PRN PRN 11/28/13 06/04/19 05/20/15 History 10 mg Aspirin [Aspirin BABY CHEW TAB] 81 mg PO QDAY 05/21/15 06/04/19 06/03/19 09:00 History Chlorthalidone [Thalitone] 25 mg PO QDAY 05/21/15 06/04/19 05/20/15 History Ezetimibe [Zetia] 10 mg PO QDAY 05/21/15 06/04/19 05/20/15 History Fenofibrate [Tricor] 160 mg PO QDAY 05/21/15 06/04/19 05/20/15 History Losartan [Cozaar] 50 mg PO QDAY 05/21/15 06/04/19 06/03/19 09:00 History Metoprolol [Lopressor TAB] 12.5 mg PO BID 05/21/15 06/04/19 05/20/15 History metFORMIN [Glucophage] 500 mg PO BID 08/12/18 06/04/19 06/03/19 18:00 History Plavix 75 mg PO DAILY 06/04/19 06/04/19 06/03/19 09:00 History Active Meds: Active Medications Acetaminophen (Tylenol) 650 mg PO Q4H PRN PRN Reason: Pain MILD(1-3)/Fever >100.5/REBOLLEDO Hydromorphone HCl (Dilaudid) 1 mg IV Q4H PRN PRN Reason: Pain , Severe (7-10) Piperacillin Sod/Tazobactam Sod (Zosyn/Ns 4.5gm/100ml) 4.5 gm in 100 mls @ 200 mls/hr IV Q8HR JF; Protocol Last Admin: 06/04/19 14:20 Dose: 200 mls/hr Documented by: Sodium Chloride (Nacl 0.9% 1000 Ml) 1,000 mls @ 100 mls/hr IV DIRECT JF Morphine Sulfate (Morphine) 2 mg IV Q3H PRN PRN Reason: Pain, Moderate (4-6) Last Admin: 06/04/19 14:19 Dose: 2 mg Documented by: Ondansetron HCl (Zofran) 4 mg IV Q8H PRN PRN Reason: Nausea And Vomiting Sodium Chloride (Sodium Chloride Flush Syringe 10 Ml) 10 ml IV BID JF Sodium Chloride (Sodium Chloride Flush Syringe 10 Ml) 10 ml IV PRN PRN PRN Reason: LINE FLUSH Review of Systems All systems: negative (10 pt ROS performed and negative except for that listed in HPI) Exam Vital Signs BP Pulse Ox 159/61 99 06/04/19 05:12 06/04/19 05:12 Narrative exam: Gen: AAOx3. moderate distress due to pain in abdomen ENT: + scleral icterus CV: s1, S2+ Resp: even and unlabored Abd: soft, ND, + RUQ and epigastric TTP. Ext; no c/c/e Skin: Jaundice Results - Labs 06/04/19 05:27 06/04/19 05:27 Abnormal lab results 06/04/19 06/04/19 06/04/19 Range/Units 05:27 05:27 05:27 WBC 13.5 H (4.5-11.0) K/mm3 Seg Neutrophils % 80.4 H (40.0-70.0) % Seg Neutrophils # 10.9 H (1.8-7.7) K/mm3 Sodium 135 L (137-145) mmol/L Potassium 3.5 L (3.6-5.0) mmol/L Chloride 97.2 L (98-107) mmol/L BUN 21 H (9-20) mg/dL Glucose 313 H (75-100) mg/dL POC Glucose (70-105) Total Bilirubin 3.90 H (0.1-1.2) mg/dL AST 52 H (5-40) units/L ALT 161 H (7-56) units/L Alkaline Phosphatase 268 H (35-129) units/L Albumin 3.7 L (3.9-5) g/dL Lipase 70 H (13-60) units/L 06/04/19 Range/Units 12:21 WBC (4.5-11.0) K/mm3 Seg Neutrophils % (40.0-70.0) % Seg Neutrophils # (1.8-7.7) K/mm3 Sodium (137-145) mmol/L Potassium (3.6-5.0) mmol/L Chloride (98-107) mmol/L BUN (9-20) mg/dL Glucose (75-100) mg/dL POC Glucose 269 H (70-105) Total Bilirubin (0.1-1.2) mg/dL AST (5-40) units/L ALT (7-56) units/L Alkaline Phosphatase (35-129) units/L Albumin (3.9-5) g/dL Lipase (13-60) units/L Diabetes panel 06/04/19 Range/Units 05:27 Sodium 135 L (137-145) mmol/L Potassium 3.5 L (3.6-5.0) mmol/L Chloride 97.2 L (98-107) mmol/L Carbon Dioxide 23 (22-30) mmol/L BUN 21 H (9-20) mg/dL Creatinine 0.9 (0.8-1.5) mg/dL Glucose 313 H (75-100) mg/dL Calcium 9.7 (8.4-10.2) mg/dL AST 52 H (5-40) units/L ALT 161 H (7-56) units/L Alkaline Phosphatase 268 H (35-129) units/L Total Protein 6.8 (6.3-8.2) g/dL Albumin 3.7 L (3.9-5) g/dL Calcium panel 06/04/19 Range/Units 05:27 Calcium 9.7 (8.4-10.2) mg/dL Albumin 3.7 L (3.9-5) g/dL Pituitary panel 06/04/19 Range/Units 05:27 Sodium 135 L (137-145) mmol/L Potassium 3.5 L (3.6-5.0) mmol/L Chloride 97.2 L (98-107) mmol/L Carbon Dioxide 23 (22-30) mmol/L BUN 21 H (9-20) mg/dL Creatinine 0.9 (0.8-1.5) mg/dL Glucose 313 H (75-100) mg/dL Calcium 9.7 (8.4-10.2) mg/dL Adrenal panel 06/04/19 Range/Units 05:27 Sodium 135 L (137-145) mmol/L Potassium 3.5 L (3.6-5.0) mmol/L Chloride 97.2 L (98-107) mmol/L Carbon Dioxide 23 (22-30) mmol/L BUN 21 H (9-20) mg/dL Creatinine 0.9 (0.8-1.5) mg/dL Glucose 313 H (75-100) mg/dL Calcium 9.7 (8.4-10.2) mg/dL Total Bilirubin 3.90 H (0.1-1.2) mg/dL AST 52 H (5-40) units/L ALT 161 H (7-56) units/L Alkaline Phosphatase 268 H (35-129) units/L Total Protein 6.8 (6.3-8.2) g/dL Albumin 3.7 L (3.9-5) g/dL - Imaging CT scan - abdomen: report reviewed, image reviewed CT scan - pelvis: report reviewed, image reviewed Assessment and Plan 74 yo M with 1. acute cholecystitis 2. elevated bilirubin, concerning for choledocolithiasis 3. hx CABG on plavix 4. DM Plan: 1. NPO 2. IVF 3. prn pain control - pt with tolerance to pain meds and on methadone at home. Will adjust 4. ativan IV q8 prn 5. MRCP ordered but patient unable to complete 6. obtain RUQ u/s to further evaluate GB and CBD 7. abx - IV zosyn 8. insulin sliding scale 9. cardiology consulted for preop risk assessment 10. repeat CMP tomorrow - if bilirubin increasing would recommend ERCP. If improving, will consider IOC during cholecystectomy. GI consulted 11. Eventual cholecystectomy Plan discussed with patient's family at bedside. Thank you, please call with questions
[2019-06-04] MEDS ORDERED: LORazepam 2 MG/ML VIAL IV PRN (15:58)
[2019-06-04] MEDS: HYDROmorphone 2 MG/1 ML INJ IV PRN ×2 (17:05→22:50)
[2019-06-04] MEDS: ONDANSETRON 4 MG/2 ML INJ IV PRN ×2 (17:05→22:50)
--- NOTE | 2019-06-04 17:05 | Ultrasound Report ---
ULTRASOUND ABDOMEN, LIMITED (RIGHT UPPER QUADRANT) INDICATION: cholecystitis. COMPARISON: None available. FINDINGS: Pancreas: Visualized portion shows no significant abnormality. Liver: Normal. Gallbladder: Gallbladder contains multiple small stones as well as sludge. Wall is thickened at 6 mm and also appears edematous. Bile ducts: Normal. Common Bile Duct measures 4.8 mm. Free fluid: None. Additional Findings: None. IMPRESSION: 1. Cholelithiasis with probable cholecystitis. Signer Name: Jose Martin Parish MD Signed: 06/04/2019 5:00 PM Workstation Name: [id number]
[2019-06-04] MEDS: SODIUM CHLORIDE 0.9% 1000 ML 1,000 ML IV SCH (19:43)
--- NOTE | 2019-06-04 22:19 | Consultation ---
CARDIOLOGY CONSULTATION AGE: 74. SEX: Male. REFERRING PHYSICIAN: Palmer Root MD, hospitalist. HISTORY OF PRESENT ILLNESS: A 74-year-old thin built, pleasant white gentleman known to me well, being followed up in the office with the history of multiple medical problems -- hypertension, hyperlipidemia, type 2 diabetes mellitus, known CAD, history of CABG surgery 5 years ago, also known to have peripheral vascular disease and peripheral vascular intervention in the lower extremities in the past, also has a history of chronic cigarette smoking, was brought to the Emergency Room with severe abdominal/epigastric pain, which has been having for the past 7-10 days. The pain has become more marked for the past 2 days. He also had recurrent nausea and vomiting with diarrhea for the past 2-3 days. No history of chest pain. He has chronic shortness of breath. He had a CAT scan of the abdomen and pelvis, which revealed evidence of acute cholecystitis, scattered sigmoid diverticulitis and small hiatal hernia. He was evaluated by GI and he was on intravenous fluids, intravenous pain killers and also intravenous antibiotics. His blood sugar was not under control. His potassium is 3.5 and he has been receiving potassium supplements. His serum lipase is 70. He had increased AST, ALT and alkaline phosphatase. At the time of examination, he is still having severe abdominal pain. PAST MEDICAL HISTORY: History of multiple medical problems as described above, history of CAD, CABG surgery, history of peripheral vascular disease. FAMILY HISTORY: Negative for premature coronary artery disease. SOCIAL HISTORY: He has been a chronic heavy smoker. He was instructed to stop smoking on each of his office visits. However, he continues to smoke; at this time, he smokes about half to one pack of cigarettes per day. Occasionally, he takes alcohol. No history of drug abuse. ALLERGIES: None known. REVIEW OF SYSTEMS: CARDIOVASCULAR: As described in the history. GASTROINTESTINAL SYSTEM: As described in the history. METABOLISM AND ENDOCRINOLOGY: As described in the history. PULMONARY: As described in the history. BONE AND JOINTS: Negative. Review of rest of the 10 systems negative. MEDICATIONS: Intravenous morphine sulfate p.r.n., IV Zosyn 4.5 grams every 8 hours, potassium supplements, intravenous fluids. PHYSICAL EXAMINATION: GENERAL: A 74-year-old, thin-built white gentleman in acute distress secondary to acute abdominal pain. VITAL SIGNS: He is afebrile, pulse 100 per minute and regular, respirations are 18 per minute, blood pressure 149/46 mmHg. NEUROLOGIC: He is alert and oriented x 3. HEENT: Negative. NECK: Supple, no JVD, no bruit, no thyromegaly. CHEST WALL: CABG scar present. HEART: PMI could not be felt satisfactorily, no palpable thrills. Auscultation of heart reveals S1, S2 heard. S2 is loud, S4 is heard. Grade 2-3/6 ejection systolic murmur is heard all over the precardium, peripheral pulses feeble. No edema. LUNGS: Bilateral air entry good and equal. No bronchial breathing. No wheezing. ABDOMEN: Soft, abdominal distention present. It is tender. Bowel sounds not heard. BONE AND JOINTS: Negative. No focal neurological deficit. LABORATORY DATA: Potassium 3.5, BUN 21, creatinine 0.9, glucose 269. Total bilirubin 3.9, AST 52, ALT 161, alkaline phosphatase 268. Troponin is negative. His past cardiac catheterization was during 2014, which revealed normal left ventricular function and patent bypass grafts. His EKG during 08/2018 revealed normal sinus rhythm, frequent PVCs, and left atrial enlargement. IMPRESSION: 1. Acute cholecystitis. 2. Known coronary artery disease, history of coronary artery bypass graft surgery in the past. 3. Patent grafts by cardiac catheterization during 2014. 4. History of chronic heavy cigarette smoking. 5. Severe peripheral vascular disease, history of intervention for the same in the past. 6. Abnormal liver function tests. 7. Sigmoid diverticulitis. 8. Uncontrolled diabetes mellitus. ADDENDUM: His most recent Jennifer stress nuclear scan was on 08/14/2018 which revealed a small fixed perfusion defect with LVEF of 49%. No EKG can be found during this admission. RECOMMENDATIONS: 1. Would order for a 12-lead EKG. 2. Would order for echocardiogram to follow up his left ventricular function. Further recommendations will follow. Condition of the patient and further plans were discussed in detail with the patient's family members who are at bedside. They understand and want us to proceed. JOB# [id number] [facility]
[2019-06-05] MEDS: ONDANSETRON 4 MG/2 ML INJ IV PRN (05:19)
[2019-06-05] MEDS: HYDROmorphone 2 MG/1 ML INJ IV PRN ×4 (05:19→18:59)
[2019-06-05] MEDS: PIPERACIL/TAZOBACTA 4.5/NS 100 4.5 GM/100 ML VIAL IV SCH ×3 (05:49→22:47)
[2019-06-05 05:52] LABS: BUN/Creatinine Ratio 28; Blood Urea Nitrogen 28 mg/dL (9-20); Calcium 8.7 mg/dL (8.4-10.2); Hemolysis Index 97
[2019-06-05 06:10] LABS: Bilirubin,Direct 2.2 mg/dL (0-0.2)
[2019-06-05] MEDS: SODIUM CHLORIDE 0.9% 1000 ML 1,000 ML IV SCH ×2 (06:13→22:46)
[2019-06-05 06:33] LABS: Hematocrit 45.5 % (35.5-45.6); Mean Corpuscular HGB Conc 33 % (32-34); Mean Corpuscular Volume 92 fl (84-94); Platelet Count 242 K/mm3 (140-440); Red Blood Count 4.94 M/mm3 (3.65-5.03); Red Cell Distribution Width 14.4 % (13.2-15.2)
[2019-06-05 07:14] LABS: Alanine Aminotransferase 83 units/L (7-56)
--- NOTE | 2019-06-05 09:40 | Magnetic Resonance Report ---
MR ABDOMEN MRCP HISTORY: Cholecystitis, jaundice, elevated liver and biliary enzymes. Evaluate for choledocholithiasi s. TECHNIQUE: Multisequence, multiplanar MRI without contrast. Thin coronal and radial MRCP images. COMPARISON: CT abdomen pelvis and ultrasound right upper quadrant performed 06/04/2019. FINDINGS: There are numerous tiny stones layering in the gallbladder. The gallbladder is mildly distended with moderate wall thickening measuring up to 7 mm. Moderate pericholecystic fluid is noted throughout the base of the mesentery right side of the abdomen. No obvious findings of gallbladder perforation. The MRCP images demonstrate a 4 mm filling defect in the distal common bile duct 1 cm from the ampulla. There also appears to be layering debris or sludge in the distal common bile duct adjacent to the amp lorrie. The common bile duct is normal caliber measuring 4 mm. There is mild narrowing of the proximal common bile duct which appears to be secondary to external compression likely from the inflamed gallb ladder. The visualized pancreatic duct is normal caliber. No pancreatic divisum. There is mild fatty change throughout the liver. No enlargement or focal mass. The pancreas is mildly atrophic. There is a mild degree of fluid surrounding the pancreas. Acute pancreatitis cannot be exc luded. No large pancreatic mass or pseudocyst. The kidneys, adrenal glands, spleen, aorta and visuali zed bowel loops are unremarkable. IMPRESSION: Cholelithiasis. Acute cholecystitis is suspected. Choledocholithiasis. Filling defects are identified in the distal common bile duct consistent with sm all stones/sludge although the do not appear obstructed. The CBD measures 4 mm. Small to medium pericholecystic fluid/ascites. Pancreatitis cannot be excluded, correlate with the patient's clinical presentation and laboratory balbir maria. Signer Name: Enrrique Daily Jr, MD Signed: 06/05/2019 9:35 AM Workstation Name: [id number]
--- NOTE | 2019-06-05 10:25 | Gastroenterology Progress Note ---
Assessment and Plan Patient's white count is elevated, he would benefit from an ERCP due to the choledocholithiasis seen on MRCP. However he did have a recent dose of Plavix. Case reviewed with advanced endoscopy, there will proceed with ER CP cautiously later today. Please make patient nothing by mouth past midnight. He can undergo cholecystectomy once the ERCP has been performed - Patient Problems (1) Generalized abdominal pain Current Visit: Yes Status: Acute (2) Acute cholecystitis Current Visit: Yes Status: Acute (3) Elevated LFTs Current Visit: No Status: Chronic Subjective Date of service: 06/05/19 Principal diagnosis: choecystitis, choledocholithiasis Interval history: Patient reports hungry and wants food, but still with moderate to severe abdominal pain, upper abd, associated with nausea, the pain does not radiate, constant positive MRCP, pt's last dose plavix Tuesday Objective - Constitutional Vitals: Temp Pulse Resp BP Pulse Ox 98.4 F 68 18 128/38 92 06/05/19 08:17 06/05/19 08:17 06/05/19 08:17 06/05/19 08:17 06/05/19 08:17 General appearance: no acute distress - EENT Eyes: PERRL - Neck Neck: supple - Respiratory Respiratory effort: normal - Cardiovascular Rhythm: regular - Gastrointestinal General gastrointestinal: Present: tender, distended - Integumentary Integumentary: Present: warm - Neurologic Neurological: alert and oriented x3 - Labs CBC & Chem 7: 06/05/19 05:34 06/05/19 04:18 Labs: Laboratory Results - last 24 hr 06/04/19 06/05/19 06/05/19 12:21 04:18 04:18 WBC RBC Hgb Hct MCV MCH MCHC RDW Plt Count Sodium 138 Potassium 4.6 D Chloride 101.4 Carbon Dioxide 23 Anion Gap 18 BUN 28 H Creatinine 1.0 Estimated GFR > 60 BUN/Creatinine Ratio 28 Glucose 309 H POC Glucose 269 H Calcium 8.7 Total Bilirubin 3.20 H 3.30 H Direct Bilirubin 2.2 H Indirect Bilirubin 1.1 AST 24 ALT 83 H Alkaline Phosphatase 158 H Total Protein 5.9 L Albumin 3.0 L Albumin/Globulin Ratio 1.0 06/05/19 05:34 WBC 27.3 H RBC 4.94 Hgb 15.0 Hct 45.5 MCV 92 MCH 30 MCHC 33 RDW 14.4 Plt Count 242 Sodium Potassium Chloride Carbon Dioxide Anion Gap BUN Creatinine Estimated GFR BUN/Creatinine Ratio Glucose POC Glucose Calcium Total Bilirubin Direct Bilirubin Indirect Bilirubin AST ALT Alkaline Phosphatase Total Protein Albumin Albumin/Globulin Ratio
--- NOTE | 2019-06-05 10:38 | Progress Note ---
Assessment and Plan 74 yo M with 1. acute cholecystitis 2. choledocolithiasis 3. hx CABG on plavix MRCP - filling defect in distal CBD, choledocolithiasis Plan: 1. Discussed ERCP with GI. Plan for ERCP was for , now will be today with Dr. Laws. 2. Cholecystectomy to be scheduled this week. All risks, benefits, alternatives to surgery discussed with patient and questions answered. Consent obtained for robotic assisted cholecystectomy, possible open 3. NPO, clear liquids after ERCP 4. Type and screen pending 5. prn pain control 6. prn nausea control 7. trend CMP Plan discussed with patient's granddaughter at bedside who will update other family members Subjective Date of service: 06/05/19 Narrative: Pt seen and examined. Feels better today. Still having RUQ pain but better controlled. No n/v. Wants to drink water. No f/c. Objective Vital Signs - 12hr 06/05/19 06/05/19 03:11 08:17 Temperature 98.5 F 98.4 F Pulse Rate 60 68 Respiratory 18 18 Rate Blood Pressure 138/55 128/38 O2 Sat by Pulse 94 92 Oximetry - General physical appearance Narrative Exam: Gen: AAOx3. NAD ENT: scleral icterus improving CV:S1, S2+ resp: even and unlabored Abd: soft, ND, + RUQ TTP. no r/r/g Ext: no c/c/e - Labs 06/05/19 05:34 06/05/19 04:18 Diabetes panel 06/05/19 Range/Units 04:18 Sodium 138 (137-145) mmol/L Potassium 4.6 D (3.6-5.0) mmol/L Chloride 101.4 (98-107) mmol/L Carbon Dioxide 23 (22-30) mmol/L BUN 28 H (9-20) mg/dL Creatinine 1.0 (0.8-1.5) mg/dL Glucose 309 H (75-100) mg/dL Calcium 8.7 (8.4-10.2) mg/dL AST 24 (5-40) units/L ALT 83 H (7-56) units/L Alkaline Phosphatase 158 H (35-129) units/L Total Protein 5.9 L (6.3-8.2) g/dL Albumin 3.0 L (3.9-5) g/dL Calcium panel 12/24/19 Range/Units 04:18 Calcium 8.7 (8.4-10.2) mg/dL Albumin 3.0 L (3.9-5) g/dL Pituitary panel 06/05/19 Range/Units 04:18 Sodium 138 (137-145) mmol/L Potassium 4.6 D (3.6-5.0) mmol/L Chloride 101.4 (98-107) mmol/L Carbon Dioxide 23 (22-30) mmol/L BUN 28 H (9-20) mg/dL Creatinine 1.0 (0.8-1.5) mg/dL Glucose 309 H (75-100) mg/dL Calcium 8.7 (8.4-10.2) mg/dL Adrenal panel 06/05/19 06/05/19 Range/Units 04:18 04:18 Sodium 138 (137-145) mmol/L Potassium 4.6 D (3.6-5.0) mmol/L Chloride 101.4 (98-107) mmol/L Carbon Dioxide 23 (22-30) mmol/L BUN 28 H (9-20) mg/dL Creatinine 1.0 (0.8-1.5) mg/dL Glucose 309 H (75-100) mg/dL Calcium 8.7 (8.4-10.2) mg/dL Total Bilirubin 3.20 H 3.30 H (0.1-1.2) mg/dL AST 24 (5-40) units/L ALT 83 H (7-56) units/L Alkaline Phosphatase 158 H (35-129) units/L Total Protein 5.9 L (6.3-8.2) g/dL Albumin 3.0 L (3.9-5) g/dL
[2019-06-05] MEDS ORDERED: GLUCAGON (HUMAN RECOMBINANT) 1 MG/ML INJ ONE (11:56)
[2019-06-05] MEDS ORDERED: SODIUM CHLORIDE 0.9% 100 ML ONE (11:56)
[2019-06-05] MEDS ORDERED: SODIUM CHLORIDE 0.9% 1000 ML 1,000 ML ONE (11:57)
[2019-06-05] MEDS ORDERED: INSULIN REGULAR, HUMAN 100 UNITS/1 ML SUB-Q ONE (12:17)
[2019-06-05] MEDS ORDERED: INSULIN REGULAR, HUMAN 100 UNITS/1 ML ONE ×2 (12:22→13:15)
[2019-06-05] MEDS ORDERED: SODIUM CHLORIDE 0.9% 1000 ML 1,000 ML IV SCH (12:30)
[2019-06-05] MEDS ORDERED: fentaNYL 100 MCG/2 ML INJ ONE (12:34)
[2019-06-05] MEDS ORDERED: LIDOCAINE MPF (2%) 20 MG/1 ML VIAL 5 ML ONE (12:34)
[2019-06-05] MEDS ORDERED: ONDANSETRON 4 MG/2 ML INJ ONE (12:34)
[2019-06-05] MEDS ORDERED: SUCCINYLCHOLINE CHLORIDE 200 MG/10 ML INJ MDV ONE (12:34)
[2019-06-05] MEDS ORDERED: ROCURONIUM 50 MG/5 ML INJ IV ONE (12:34)
[2019-06-05] MEDS ORDERED: PROPOFOL 200 MG/20 ML VIAL IV ONE (12:34)
[2019-06-05] MEDS ORDERED: INSULIN REGULAR, HUMAN 100 UNITS/1 ML IV ONE (13:17)
[2019-06-05] MEDS ORDERED: HYDROmorphone 1 MG/1 ML INJ ONE (13:18)
[2019-06-05] MEDS ORDERED: KETAMINE 500 MG/5 ML VIAL MDV ONE (13:20)
--- NOTE | 2019-06-05 13:34 | Progress Note ---
Assessment and Plan Assessment and plan: Acute cholecystitis with cholelithiasis MRCP revealed cholelithiasis, choledocholithiasis and acute cholecystitis. Surgery following. Plans for surgery likely tomorrow or Tuesday. Continue iv fluids Continue Dilaudid iv prn for pain Continue Zosyn CAD s/p CABG Cardiology following Echocardiogram revealed EF 50 to 55% with left ventricular diastolic filling consistent with impaired relaxation. Diabetes mellitus typpe 2 Fingerstick q 6h HTN Monitor Hyponatremia Hypokalemia Replace and recheck Sinus bradycardia Hold Metoprolol Hyperlipidemia PAD Full code status Discussed with patient and family at bedside History Interval history: Patient seen in the GI lab. No complaints. Hospitalist Physical - Constitutional Vitals: Temp Pulse Resp BP Pulse Ox 98.8 F 81 15 137/62 94 06/05/19 12:33 06/05/19 12:33 06/05/19 12:33 06/05/19 12:33 06/05/19 12:33 General appearance: Present: no acute distress, well-nourished - EENT Eyes: Present: PERRL, EOM intact ENT: hearing intact, clear oral mucosa, dentition normal - Neck Neck: Present: supple, normal ROM - Respiratory Respiratory effort: normal Respiratory: bilateral: CTA - Cardiovascular Rhythm: regular Heart Sounds: Present: S1 & S2. Absent: gallop, rub - Extremities Extremities: no ischemia, No edema, Full ROM - Abdominal General gastrointestinal: soft, non-tender, non-distended, normal bowel sounds - Integumentary Integumentary: Present: clear, warm, dry - Neurologic Neurologic: CNII-XII intact, moves all extremities Results - Labs CBC & Chem 7: 06/05/19 05:34 06/05/19 04:18 Labs: Laboratory Last Values WBC 27.3 K/mm3 (4.5-11.0) H 06/05/19 05:34 RBC 4.94 M/mm3 (3.65-5.03) 06/05/19 05:34 Hgb 15.0 gm/dl (11.8-15.2) 06/05/19 05:34 Hct 45.5 % (35.5-45.6) 06/05/19 05:34 MCV 92 fl (84-94) 06/05/19 05:34 MCH 30 pg (28-32) 06/05/19 05:34 MCHC 33 % (32-34) 06/05/19 05:34 RDW 14.4 % (13.2-15.2) 06/05/19 05:34 Plt Count 242 K/mm3 (140-440) 06/05/19 05:34 Lymph % (Auto) 15.0 % (13.4-35.0) 06/04/19 05:27 [place] % (Auto) 3.3 % (0.0-7.3) 06/04/19 05:27 Eos % (Auto) 0.3 % (0.0-4.3) 06/04/19 05:27 Baso % (Auto) 1.0 % (0.0-1.8) 06/04/19 05:27 Lymph # 2.0 K/mm3 (1.2-5.4) 06/04/19 05:27 [place] # 0.4 K/mm3 (0.0-0.8) 06/04/19 05:27 Eos # 0.0 K/mm3 (0.0-0.4) 06/04/19 05:27 Baso # 0.1 K/mm3 (0.0-0.1) 06/04/19 05:27 Seg Neutrophils % 80.4 % (40.0-70.0) H 06/04/19 05:27 Seg Neutrophils # 10.9 K/mm3 (1.8-7.7) H 06/04/19 05:27 Sodium 138 mmol/L (137-145) 06/05/19 04:18 Potassium 4.6 mmol/L (3.6-5.0) D 06/05/19 04:18 Chloride 101.4 mmol/L (98-107) 06/05/19 04:18 Carbon Dioxide 23 mmol/L (22-30) 06/05/19 04:18 Anion Gap 18 mmol/L 06/05/19 04:18 BUN 28 mg/dL (9-20) H 06/05/19 04:18 Creatinine 1.0 mg/dL (0.8-1.5) 06/05/19 04:18 Estimated GFR > 60 ml/min 06/05/19 04:18 BUN/Creatinine Ratio 28 % 06/05/19 04:18 Glucose 309 mg/dL (75-100) H 06/05/19 04:18 POC Glucose 426 (70-105) H 06/05/19 13:13 Calcium 8.7 mg/dL (8.4-10.2) 06/05/19 04:18 Total Bilirubin 3.20 mg/dL (0.1-1.2) H 06/05/19 04:18 Total Bilirubin 3.30 mg/dL (0.1-1.2) H 06/05/19 04:18 Direct Bilirubin 2.2 mg/dL (0-0.2) H 06/05/19 04:18 Indirect Bilirubin 1.1 mg/dL 06/05/19 04:18 AST 24 units/L (5-40) 06/05/19 04:18 ALT 83 units/L (7-56) H 06/05/19 04:18 Alkaline Phosphatase 158 units/L (35-129) H 06/05/19 04:18 Troponin T < 0.010 ng/mL (0.00-0.029) 06/04/19 05:27 Total Protein 5.9 g/dL (6.3-8.2) L 06/05/19 04:18 Albumin 3.0 g/dL (3.9-5) L 06/05/19 04:18 Albumin/Globulin Ratio 1.0 % 06/05/19 04:18 Lipase 13 units/L (13-60) 06/05/19 11:53 Urine Color [place] (Yellow) 06/04/19 05:39 Urine Turbidity Clear (Clear) 06/04/19 05:39 Urine pH 5.0 (5.0-7.0) 06/04/19 05:39 Ur Specific [place] 1.021 (1.003-1.030) 06/04/19 05:39 Urine Protein <15 mg/dl mg/dL (Negative) 06/04/19 05:39 Urine Glucose (UA) >=500 mg/dL (Negative) 06/04/19 05:39 Urine Ketones Tr mg/dL (Negative) 06/04/19 05:39 Urine Blood Sm (Negative) 06/04/19 05:39 Urine Nitrite Neg (Negative) 06/04/19 05:39 Urine Bilirubin Neg (Negative) 06/04/19 05:39 Urine Urobilinogen 2.0 mg/dL (<2.0) 06/04/19 05:39 Ur Leukocyte Esterase Neg (Negative) 06/04/19 05:39 Urine WBC (Auto) < 1.0 /HPF (0.0-6.0) 06/04/19 05:39 Urine RBC (Auto) 3.0 /HPF (0.0-6.0) 06/04/19 05:39 U Epithel Cells (Auto) < 1.0 /HPF (0-13.0) 06/04/19 05:39 Blood Type O POSITIVE 06/05/19 11:53 Antibody Screen Negative 06/05/19 11:53 Active Medications - Current Medications Current Medications: Generic Name Dose Route Start Last Admin Trade Name Freq PRN Reason Stop Dose Admin Acetaminophen 650 mg 06/04/19 11:25 Tylenol PO Q4H PRN Pain MILD(1-3)/Fever >100.5/REBOLLEDO Hydromorphone HCl 1 mg 06/04/19 15:58 Dilaudid IV Q3H PRN Pain, Moderate (4-6) Hydromorphone HCl 2 mg 06/04/19 15:58 06/05/19 09:30 Dilaudid IV 2 mg Q3H PRN Administration Pain , Severe (7-10) Piperacillin Sod/Tazobactam Sod 4.5 gm in 100 mls @ 200 mls/hr 06/04/19 14:00 06/05/19 05:49 Zosyn/Ns 4.5gm/100ml IV 200 mls/hr Q8HR JF Administration Protocol Sodium Chloride 1,000 mls @ 100 mls/hr 06/04/19 09:00 06/05/19 06:13 Nacl 0.9% 1000 Ml IV 100 mls/hr DIRECT JF Administration Sodium Chloride 1,000 mls @ 50 mls/hr 06/05/19 12:30 Nacl 0.9% 1000 Ml IV DIRECT JF Insulin Human Regular 0 units 06/05/19 16:30 Humulin R SUB-Q ACHS JF Protocol Lorazepam 1 mg 06/04/19 15:58 Ativan IV Q8H PRN Anxiety Ondansetron HCl 4 mg 06/04/19 15:59 06/05/19 05:19 Zofran IV 4 mg Q6H PRN Administration Nausea And Vomiting Sodium Chloride 10 ml 06/04/19 22:00 06/04/19 21:43 Sodium Chloride Flush Syringe 10 Ml IV 10 ml BID JF Administration Sodium Chloride 10 ml 06/04/19 11:25 Sodium Chloride Flush Syringe 10 Ml IV PRN PRN LINE FLUSH
--- NOTE | 2019-06-05 14:13 | Post Operative Note ---
Pre-op diagnosis: Choledocholithiasis Post-op diagnosis: same Findings: 1. Normal ampulla 2. PD cannulated with 0.035 guidewire but not injected 3. CBD cannulated with Spinctertome/0.035 guidewire - CBD minimal dilation (6mm) with distal filling defect consistent with stone - Medium sphincterotomy performed - 9mm balloon swept x 3 through CBD with removal of yellow stone, sludge, and some purulent material 4. No filling of cystic duct/GB noted 5. Incidental note made of severe erosive gastritis Procedure: ERCP with biliary sphincterotomy and balloon sweep of bile ducts Anesthesia: MAC Surgeon: HEATH LUONG Estimated blood loss: minimal Pathology: none Specimen disposition: other (N/A) Condition: stable Disposition: floor (Recs: 1. Continue abx x 5-7 days (pending results of CCY tomorrow) given pus present in CBD. 2. OK to proceed with CCY tomorrow. 3. Avoid Plavix and NSAIDs today, but subcut heparin or lovenox OK for DVT PPY. 4. Protonix daily therapy for gastritis. 5. Will check CMP tomorrow.)
--- NOTE | 2019-06-05 14:29 | Operative Report ---
PROCEDURE PERFORMED: Endoscopic retrograde cholangiopancreatography with biliary sphincterotomy and balloon sweeping of the common bile duct. PREOPERATIVE DIAGNOSIS: Choledocholithiasis. POSTOPERATIVE DIAGNOSIS: Choledocholithiasis. ENDOSCOPIST: Maksim Laws MD INSTRUMENT: Adbrain video endoscope. MEDICATIONS: MAC anesthesia by [facility]. COMPLICATIONS: No apparent complications. ESTIMATED BLOOD LOSS: Minimal. SPECIMENS: None. IMPLANTS: None. ASSISTANTS: None. CONDITION AT COMPLETION: Stable. TECHNIQUE: The patient was informed of the risks and benefits of the procedure. He signed the informed consent to proceed. He was placed in the prone position. The above sedative medications were given. His vital signs remained stable throughout the procedure. The instrument was advanced from the mouth to the second portion of the duodenum under direct visualization. At that point, the bowel was insufflated. The pancreatic duct was initially cannulated using a 0.035 guidewire. The sphincterotome was repositioned and the common bile duct was cannulated using a sphincterotome and a 0.035 guidewire. Cholangiogram showed mild dilation of the common bile duct with a distal filling defect. A sphincterotomy was performed and a 9 mm biliary balloon was swept 3 times through the common bile duct with removal of a gallstone, sludge, and some purulent material. The procedure was then terminated. FINDINGS: 1. Normal appearing ampulla. 2. The pancreatic duct was cannulated using a 0.035 guidewire, but was not injected. 3. The common bile duct was cannulated using a sphincterotome and a 0.035 guidewire. A. The common bile duct was minimally dilated to 6 mm with a distal filling defect consistent with a gallstone. B. A medium sized sphincterotomy was performed. C. A 9 mm balloon was swept 3 times through the common hepatic and common bile duct with removal of a 4 mm yellow gallstone, some sludge, and some purulent material. D. The post-procedure cholangiogram showed no evidence of residual filling defects. 4. Incidental note was made of no filling of either the cystic duct or the gallbladder with contrast. 5. Incidental note made of severe erosive gastritis. RECOMMENDATIONS: 1. Continue antibiotics for approximately 5-7 days depending on the results of the cholecystectomy tomorrow, given the pus present in the common bile duct. 2. Okay to proceed with cholecystectomy tomorrow. 3. Avoid Plavix and nonsteroidal anti-inflammatory drugs today, but subcutaneous heparin or Lovenox is okay for deep venous thrombosis prophylaxis. 4. Protonix daily therapy for gastritis. 5. We will check liver panel tomorrow. JOB# [id number] [facility]
[2019-06-05] MEDS: PANTOPRAZOLE 40 MG INJ IV SCH (15:35)
--- NOTE | 2019-06-05 15:42 | Post Anesthesia Evaluation ---
- Post Anesthesia Evaluation Patient Participated: Yes Airway Patent: Yes Stable Respiratory Function: Yes Nausea/Vomiting: No Temp > 96.8F: Yes Pain Manageable: Yes Adequeate Hydration: Yes Anesthesia Complications: No Block Receding Appropriately: Not Applicable Patient on Ventilator: No
--- NOTE | 2019-06-05 16:00 | Progress Note ---
Assessment and Plan Cardiac status is stable. Continue current management. Will hold ASA and Plavix for now as per GI; await further recommendations. The patient has been seen in conjunction with Dr. Rodrigez, who agrees with the assessment and plan. - Patient Problems (1) S/P ERCP Current Visit: Yes Status: Acute (2) Acute cholecystitis Current Visit: Yes Status: Acute (3) Biliary obstruction Current Visit: Yes Status: Acute (4) Generalized abdominal pain Current Visit: Yes Status: Acute (5) CAD (coronary artery disease) Current Visit: No Status: Chronic Qualifiers: Coronary Disease-Associated Artery/Lesion type: unspecified vessel or lesion type (6) History of coronary artery bypass graft Current Visit: No Status: Chronic Subjective Date of service: 06/05/19 Principal diagnosis: choecystitis, choledocholithiasis Interval history: The patient is s/p ERCP. He is doing well, no cardiac complaints. Objective Last Vital Signs Temp 99.3 F 06/05/19 14:14 Pulse 85 06/05/19 14:29 Resp 14 06/05/19 14:29 BP 129/52 06/05/19 14:29 Pulse Ox 98 06/05/19 14:29 - Physical Examination General: No Apparent Distress HEENT: Positive: PERRL Neck: Positive: neck supple Cardiac: Positive: Reg Rate and Rhythm Lungs: Positive: Normal Exam Neuro: Positive: Grossly Intact Abdomen: Positive: Unremarkable /Rectal: Other (deferred) Skin: Positive: Clear Musculoskeletal: Normal Range of Motion Extremities: Present: normal - Labs and Meds Cardiac Enzymes 06/05/19 Range/Units 04:18 AST 24 (5-40) units/L CBC 06/05/19 Range/Units 05:34 WBC 27.3 H (4.5-11.0) K/mm3 RBC 4.94 (3.65-5.03) M/mm3 Hgb 15.0 (11.8-15.2) gm/dl Hct 45.5 (35.5-45.6) % Plt Count 242 (140-440) K/mm3 Comprehensive Metabolic Panel 06/05/19 06/05/19 Range/Units 04:18 04:18 Sodium 138 (137-145) mmol/L Potassium 4.6 D (3.6-5.0) mmol/L Chloride 101.4 (98-107) mmol/L Carbon Dioxide 23 (22-30) mmol/L BUN 28 H (9-20) mg/dL Creatinine 1.0 (0.8-1.5) mg/dL Glucose 309 H (75-100) mg/dL Calcium 8.7 (8.4-10.2) mg/dL Direct Bilirubin 2.2 H (0-0.2) mg/dL Indirect Bilirubin 1.1 mg/dL AST 24 (5-40) units/L ALT 83 H (7-56) units/L Alkaline Phosphatase 158 H (35-129) units/L Total Protein 5.9 L (6.3-8.2) g/dL Albumin 3.0 L (3.9-5) g/dL
--- NOTE | 2019-06-05 16:21 | Anesthesia Day of Surgery ---
Anesthesia Day of Surgery - Day of Surgery Patient Examined: Yes Patient H&P Reviewed: Yes Patient is NPO: Yes
--- NOTE | 2019-06-05 16:21 | Anesthesia Consultation ---
Anesthesia Consult and Med Hx Date of service: 06/05/19 - Airway Anesthetic Teeth Evaluation: Partials ROM Head & Neck: Adequate Mental/Hyoid Distance: Adequate Mallampati Class: Class III Intubation Access Assessment: Possibly Difficult - Pulmonary Exam CTA: Yes - Cardiac Exam Cardiac Exam: RRR - Pre-Operative Health Status ASA Pre-Surgery Classification: ASA3 Proposed Anesthetic Plan: MAC - Pulmonary Hx Smoking: Yes (1-2PPD) Hx Respiratory Symptoms: No Hx Sleep Apnea: No - Cardiovascular System Hx Hypertension: Yes Hx Coronary Artery Disease: Yes (s/p CABG 2013) Hx Heart Attack/AMI: No Hx Peripheral Vascular Disease: Yes - Central Nervous System CVA: No Hx Psychiatric Problems: Yes - Gastrointestinal Hx Gastroesophageal Reflux Disease: No - Endocrine Hx Renal Disease: No Hx Liver Disease: No Hx Insulin Dependent Diabetes: Yes (poorly controlled this admission) Hx Thyroid Disease: No - Hematic Hx Anemia: No - Other Systems Hx Obesity: No - Additional Comments Anesthesia Medical History Comments: PMH CAD s/p CABG, PAD, HTN, IDDM, smoking, chronic opioid/benzo use presenting with acute cholecystitis scheduled for EGD today and cholecystectomy to follow in the coming days. No signs of acute cardiac decompensation this admission. Cardiology following; TTE and EKG reviewed. Patient on methadone 5mg BID and xanax prn outpatient which has not yet been restarted this hospitalization. Last dose ASA/Plavix 06/03/19. Plan MAC for ERCP and GA for robotic cm. Plan discussed with patient and family at bedside.
[2019-06-05] MEDS: INSULIN REGULAR, HUMAN 100 UNITS/1 ML SUB-Q SCH ×2 (16:30→23:19)
[2019-06-05] MEDS: METHADONE 10 MG TAB PO SCH (22:47)
[2019-06-05] MEDS: ALPRAZolam 1 MG TAB PO PRN (23:17)
[2019-06-06] MEDS: PIPERACIL/TAZOBACTA 4.5/NS 100 4.5 GM/100 ML VIAL IV SCH ×3 (05:31→22:22)
[2019-06-06 05:48] LABS: Hematocrit 38.3 % (35.5-45.6); Hemoglobin 12.8 gm/dl (11.8-15.2); Mean Corpuscular HGB Conc 33 % (32-34); Mean Corpuscular Volume 92 fl (84-94); Platelet Count 203 K/mm3 (140-440); Red Blood Count 4.17 M/mm3 (3.65-5.03); Red Cell Distribution Width 14.7 % (13.2-15.2)
[2019-06-06 06:16] LABS: Alanine Aminotransferase 137 units/L (7-56); Albumin 2.6 g/dL (3.9-5); BUN/Creatinine Ratio 35; Blood Urea Nitrogen 38 mg/dL (9-20); Hemolysis Index 7
[2019-06-06] MEDS: HYDROmorphone 2 MG/1 ML INJ IV PRN (07:02)
[2019-06-06] MEDS: ONDANSETRON 4 MG/2 ML INJ IV PRN (07:08)
[2019-06-06] MEDS ORDERED: DESMOPRESSIN ACETATE 2 MCG in SODIUM CHLORIDE 0.9% 50 ML IV ONE (08:00)
[2019-06-06] MEDS: POTASSIUM CHLORIDE 10 MEQ 10 MEQ/100 ML BAG IV SCH ×4 (08:37→17:30)
[2019-06-06] MEDS ORDERED: SODIUM CHLORIDE 0.9% 500 ML 500 ML IV ONE (09:00)
[2019-06-06] MEDS ORDERED: LIDOCAINE (1%) 10 MG/1 ML VIAL 20 ML MDV ONE (09:57)
[2019-06-06] MEDS ORDERED: BUPIVACAINE-EPINEPHRINE/PF 0.5%-1:200,000 (30 ML) VIAL INFILTRATI ONE ×2 (09:57→10:21)
[2019-06-06] MEDS: INSULIN REGULAR, HUMAN 100 UNITS/1 ML SUB-Q SCH ×4 (10:02→23:27)
[2019-06-06] MEDS ORDERED: fentaNYL 250 MCG/5 ML INJ ONE (10:03)
[2019-06-06] MEDS ORDERED: ROCURONIUM 50 MG/5 ML INJ IV ONE (10:03)
[2019-06-06] MEDS ORDERED: ONDANSETRON 4 MG/2 ML INJ ONE (10:03)
[2019-06-06] MEDS ORDERED: dexAMETHasone 20 MG/5 ML VIAL ONE (10:03)
[2019-06-06] MEDS ORDERED: PROPOFOL 200 MG/20 ML VIAL IV ONE (10:03)
[2019-06-06] MEDS ORDERED: GLYCOPYRROLATE 0.4 MG/2 ML INJ ONE (10:03)
[2019-06-06] MEDS ORDERED: NEOSTIGMINE 10MG/10 ML INJ MDV ONE (10:03)
[2019-06-06] MEDS ORDERED: PHENYLEPHRINE/NS 1,000 MCG/10 ML SYRINGE (OR USE) IV ONE (10:03)
[2019-06-06] MEDS ORDERED: LIDOCAINE MPF (2%) 20 MG/1 ML VIAL 5 ML ONE (10:03)
[2019-06-06] MEDS ORDERED: SODIUM CHLORIDE 0.9% IRR 1,500 ML BOTTLE IR ONE (10:21)
[2019-06-06] MEDS ORDERED: LIDOCAINE (1%) 10 MG/1 ML VIAL 20 ML MDV INFILTRATI ONE (10:21)
[2019-06-06] MEDS ORDERED: SODIUM CHLORIDE 0.9% IRRIG SOLN 2000 ML IR ONE (10:21)
[2019-06-06] MEDS ORDERED: WATER FOR IRRIG STERILE 1,500 ML BOTTLE IR ONE (10:21)
--- NOTE | 2019-06-06 10:48 | Progress Note ---
Assessment and Plan Assessment and plan: Acute cholecystitis with cholelithiasis MRCP revealed cholelithiasis, choledocholithiasis and acute cholecystitis. Surgery following. Plans for surgery today Continue iv fluids Continue Dilaudid iv prn for pain Continue Zosyn Sepsis. Present on admission. Etiology secondary to above. Continue to fo llow-up cultures. Acute kidney injury. Etiology secondary to sepsis/ATN and vasomotor nephropathy. Continue IV fluid hydration. Follow-up BMP. CAD s/p CABG Cardiology following Echocardiogram revealed EF 50 to 55% with left ventricular diastolic filling consistent with impaired relaxation. Diabetes mellitus typpe 2 Fingerstick q 6h HTN Monitor Hyponatremia Hypokalemia Replace and recheck Sinus bradycardia Hold Metoprolol Hyperlipidemia PAD Full code status Discussed with patient and family at bedside History Interval history: No new issues overnight. Hospitalist Physical - Constitutional Vitals: Temp Pulse Resp BP Pulse Ox 98.4 F 78 20 109/51 94 06/06/19 07:23 06/06/19 07:23 06/06/19 07:32 06/06/19 07:23 06/06/19 07:23 General appearance: Present: no acute distress, well-nourished - EENT Eyes: Present: PERRL, EOM intact ENT: hearing intact, clear oral mucosa, dentition normal - Neck Neck: Present: supple, normal ROM - Respiratory Respiratory effort: normal Respiratory: bilateral: CTA - Cardiovascular Rhythm: regular Heart Sounds: Present: S1 & S2. Absent: gallop, rub - Extremities Extremities: no ischemia, No edema, Full ROM - Abdominal General gastrointestinal: soft, non-tender, non-distended, normal bowel sounds - Integumentary Integumentary: Present: clear, warm, dry - Neurologic Neurologic: CNII-XII intact, moves all extremities Results - Labs CBC & Chem 7: 06/06/19 05:07 06/06/19 05:07 Labs: Laboratory Last Values WBC 21.3 K/mm3 (4.5-11.0) H 06/06/19 05:07 RBC 4.17 M/mm3 (3.65-5.03) 06/06/19 05:07 Hgb 12.8 gm/dl (11.8-15.2) 06/06/19 05:07 Hct 38.3 % (35.5-45.6) D 06/06/19 05:07 MCV 92 fl (84-94) 06/06/19 05:07 MCH 31 pg (28-32) 06/06/19 05:07 MCHC 33 % (32-34) 06/06/19 05:07 RDW 14.7 % (13.2-15.2) 06/06/19 05:07 Plt Count 203 K/mm3 (140-440) 06/06/19 05:07 Lymph % (Auto) 15.0 % (13.4-35.0) 06/04/19 05:27 [place] % (Auto) 3.3 % (0.0-7.3) 06/04/19 05:27 Eos % (Auto) 0.3 % (0.0-4.3) 06/04/19 05:27 Baso % (Auto) 1.0 % (0.0-1.8) 06/04/19 05:27 Lymph # 2.0 K/mm3 (1.2-5.4) 06/04/19 05:27 [place] # 0.4 K/mm3 (0.0-0.8) 06/04/19 05:27 Eos # 0.0 K/mm3 (0.0-0.4) 06/04/19 05:27 Baso # 0.1 K/mm3 (0.0-0.1) 06/04/19 05:27 Seg Neutrophils % 80.4 % (40.0-70.0) H 06/04/19 05:27 Seg Neutrophils # 10.9 K/mm3 (1.8-7.7) H 06/04/19 05:27 Sodium 138 mmol/L (137-145) 06/06/19 05:07 Potassium 3.1 mmol/L (3.6-5.0) L D 06/06/19 05:07 Chloride 102.1 mmol/L (98-107) 06/06/19 05:07 Carbon Dioxide 22 mmol/L (22-30) 06/06/19 05:07 Anion Gap 17 mmol/L 06/06/19 05:07 BUN 38 mg/dL (9-20) H 06/06/19 05:07 Creatinine 1.1 mg/dL (0.8-1.5) 06/06/19 05:07 Estimated GFR > 60 ml/min 06/06/19 05:07 BUN/Creatinine Ratio 35 % 06/06/19 05:07 Glucose 257 mg/dL (75-100) H 06/06/19 05:07 POC Glucose 235 (70-105) H 06/06/19 07:32 Calcium 8.0 mg/dL (8.4-10.2) L 06/06/19 05:07 Total Bilirubin 2.60 mg/dL (0.1-1.2) H 06/06/19 05:07 Direct Bilirubin 2.2 mg/dL (0-0.2) H 06/05/19 04:18 Indirect Bilirubin 1.1 mg/dL 06/05/19 04:18 AST 80 units/L (5-40) H 06/06/19 05:07 ALT 137 units/L (7-56) H 06/06/19 05:07 Alkaline Phosphatase 223 units/L (35-129) H 06/06/19 05:07 Troponin T < 0.010 ng/mL (0.00-0.029) 06/04/19 05:27 Total Protein 5.3 g/dL (6.3-8.2) L 06/06/19 05:07 Albumin 2.6 g/dL (3.9-5) L 06/06/19 05:07 Albumin/Globulin Ratio 1.0 % 06/06/19 05:07 Lipase 13 units/L (13-60) 06/05/19 11:53 Urine Color [place] (Yellow) 06/04/19 05:39 Urine Turbidity Clear (Clear) 06/04/19 05:39 Urine pH 5.0 (5.0-7.0) 06/04/19 05:39 Ur Specific [place] 1.021 (1.003-1.030) 06/04/19 05:39 Urine Protein <15 mg/dl mg/dL (Negative) 06/04/19 05:39 Urine Glucose (UA) >=500 mg/dL (Negative) 06/04/19 05:39 Urine Ketones Tr mg/dL (Negative) 06/04/19 05:39 Urine Blood Sm (Negative) 06/04/19 05:39 Urine Nitrite Neg (Negative) 06/04/19 05:39 Urine Bilirubin Neg (Negative) 06/04/19 05:39 Urine Urobilinogen 2.0 mg/dL (<2.0) 06/04/19 05:39 Ur Leukocyte Esterase Neg (Negative) 06/04/19 05:39 Urine WBC (Auto) < 1.0 /HPF (0.0-6.0) 06/04/19 05:39 Urine RBC (Auto) 3.0 /HPF (0.0-6.0) 06/04/19 05:39 U Epithel Cells (Auto) < 1.0 /HPF (0-13.0) 06/04/19 05:39 Blood Type O POSITIVE 06/05/19 11:53 Antibody Screen Negative 06/05/19 11:53 Active Medications - Current Medications Current Medications: Generic Name Dose Route Start Last Admin Trade Name Freq PRN Reason Stop Dose Admin Acetaminophen 650 mg 06/04/19 11:25 06/05/19 23:17 Tylenol PO 650 mg Q4H PRN Administration Pain MILD(1-3)/Fever >100.5/REBOLLEDO Alprazolam 1 mg 06/05/19 17:29 06/05/19 23:17 Xanax PO 1 mg Q8H PRN Administration Anxiety Hydromorphone HCl 1 mg 06/04/19 15:58 Dilaudid IV Q3H PRN Pain, Moderate (4-6) Hydromorphone HCl 2 mg 06/04/19 15:58 06/06/19 07:02 Dilaudid IV 2 mg Q3H PRN Administration Pain , Severe (7-10) Piperacillin Sod/Tazobactam Sod 4.5 gm in 100 mls @ 200 mls/hr 06/04/19 14:00 06/06/19 05:31 Zosyn/Ns 4.5gm/100ml IV 200 mls/hr Q8HR JF Administration Protocol Sodium Chloride 1,000 mls @ 50 mls/hr 06/05/19 12:30 Nacl 0.9% 1000 Ml IV DIRECT JF Potassium Chloride 10 meq in 100 mls @ 100 mls/hr 06/06/19 08:00 06/06/19 09:44 Kcl 10meq/100ml IV 06/06/19 11:59 100 mls/hr Q1H JF Administration Insulin Human Regular 0 units 06/05/19 16:30 06/06/19 10:02 Humulin R SUB-Q 3 units ACHS JF Administration Protocol Lorazepam 1 mg 06/04/19 15:58 Ativan IV Q8H PRN Anxiety Methadone HCl 10 mg 06/05/19 22:00 06/05/19 22:47 Dolophine PO 10 mg BID JF Administration Ondansetron HCl 4 mg 06/04/19 15:59 06/06/19 07:08 Zofran IV 4 mg Q6H PRN Administration Nausea And Vomiting Pantoprazole Sodium 40 mg 06/05/19 15:00 06/05/19 15:35 Protonix IV 40 mg QDAY JF Administration Sodium Chloride 10 ml 06/04/19 22:00 06/06/19 09:47 Sodium Chloride Flush Syringe 10 Ml IV 10 ml BID JF Administration Sodium Chloride 10 ml 06/04/19 11:25 Sodium Chloride Flush Syringe 10 Ml IV PRN PRN LINE FLUSH
[2019-06-06 10:55] LABS: Anisocytosis Few; Basophils % (Manual) 0 % (0.0-1.8); Eosinophils % (Manual) 0 % (0.0-4.3); Macrocytosis Few; Platelet Estimate Consistent w Auto; Total Cells Counted 100
--- NOTE | 2019-06-06 11:07 | Anesthesia Day of Surgery ---
Anesthesia Day of Surgery - Day of Surgery Patient Examined: Yes Patient H&P Reviewed: Yes Patient is NPO: Yes
[2019-06-06] MEDS ORDERED: HYDROmorphone 1 MG/1 ML INJ IV PRN (11:09)
[2019-06-06] MEDS ORDERED: HYDROmorphone 1 MG/1 ML INJ ONE ×2 (12:24→12:50)
--- NOTE | 2019-06-06 13:21 | Post Operative Note ---
Date of procedure: 06/06/19 Pre-op diagnosis: acute cholecystitis with choledocolithiasis Post-op diagnosis: other (acute gangrenous cholecystitis with choledocolithiasis) Findings: gangrenous gallbladder, very distended with thickened gallbladder wall and adhesions to the omentum Procedure: robotic assisted cholecystectomy Anesthesia: GETA, local Surgeon: FIONA KRAMER Deputy Chief Sheriff: RAH MAYES Estimated blood loss: 50-100ml Pathology: list (gallbladder) Specimen disposition: to lab Condition: stable Disposition: PACU
[2019-06-06] MEDS ORDERED: INSULIN REGULAR, HUMAN 100 UNITS/1 ML IV ONE (13:50)
[2019-06-06] MEDS ORDERED: INSULIN REGULAR, HUMAN 100 UNITS/1 ML ONE (13:56)
--- NOTE | 2019-06-06 14:30 | Event Note ---
Date: 06/06/19 patient off the floor when I went to round on him today
--- NOTE | 2019-06-06 14:46 | Post Anesthesia Evaluation ---
- Post Anesthesia Evaluation Patient Participated: Yes Airway Patent: Yes Stable Respiratory Function: Yes Nausea/Vomiting: No Temp > 96.8F: Yes Pain Manageable: Yes Adequeate Hydration: Yes Anesthesia Complications: No
--- NOTE | 2019-06-06 15:28 | Progress Note ---
Assessment and Plan 06/06/2019>patient in room,post op robotic cholecystectomy,stable cardiac veliz. Subjective Date of service: 06/06/19 Principal diagnosis: choecystitis, choledocholithiasis Interval history: Patient post op,comfortable,sleepy,vs stable. Objective Vital Signs Temp Pulse Resp Resp BP BP Pulse Ox 06/06/19 14:30 74 19 118/49 94 06/06/19 14:15 74 15 117/49 93 06/06/19 14:00 66 14 125/45 93 06/06/19 13:45 70 13 151/50 94 06/06/19 13:40 67 11 L 139/50 93 06/06/19 13:35 70 12 146/51 94 06/06/19 13:30 97.2 F L 72 18 149/60 95 06/06/19 07:32 20 06/06/19 07:23 98.4 F 78 18 109/51 94 06/06/19 07:02 20 06/06/19 02:17 97.9 F 57 L 18 133/55 94 06/06/19 00:17 20 06/06/19 00:00 94 06/05/19 23:47 20 06/05/19 23:17 20 06/05/19 22:47 20 06/05/19 22:45 20 06/05/19 19:36 100.0 F H 74 18 112/50 94 06/05/19 19:29 20 - Physical Examination General: No Apparent Distress HEENT: Positive: PERRL Neck: Positive: neck supple Cardiac: Positive: Reg Rate and Rhythm Lungs: Positive: Normal Breath Sounds Neuro: Positive: Grossly Intact Abdomen: Positive: Unremarkable (s/p robotic cholecystectomy,06/06/2019.) /Rectal: Other (deferred) Skin: Positive: Clear Musculoskeletal: Normal Range of Motion Extremities: Present: normal. Absent: edema - Labs and Meds Cardiac Enzymes 06/06/19 Range/Units 05:07 AST 80 H (5-40) units/L CBC 06/06/19 Range/Units 05:07 WBC 21.3 H (4.5-11.0) K/mm3 RBC 4.17 (3.65-5.03) M/mm3 Hgb 12.8 (11.8-15.2) gm/dl Hct 38.3 D (35.5-45.6) % Plt Count 203 (140-440) K/mm3 Comprehensive Metabolic Panel 06/06/19 Range/Units 05:07 Sodium 138 (137-145) mmol/L Potassium 3.1 L D (3.6-5.0) mmol/L Chloride 102.1 (98-107) mmol/L Carbon Dioxide 22 (22-30) mmol/L BUN 38 H (9-20) mg/dL Creatinine 1.1 (0.8-1.5) mg/dL Glucose 257 H (75-100) mg/dL Calcium 8.0 L (8.4-10.2) mg/dL AST 80 H (5-40) units/L ALT 137 H (7-56) units/L Alkaline Phosphatase 223 H (35-129) units/L Total Protein 5.3 L (6.3-8.2) g/dL Albumin 2.6 L (3.9-5) g/dL
[2019-06-06] MEDS: HYDROmorphone 1 MG/1 ML INJ IV PRN (15:50)
[2019-06-06] MEDS: ALPRAZolam 1 MG TAB PO PRN (16:30)
[2019-06-06] MEDS: PANTOPRAZOLE 40 MG INJ IV SCH (21:09)
[2019-06-06] MEDS: METHADONE 10 MG TAB PO SCH ×2 (21:10→22:23)
[2019-06-07] MEDS: ALPRAZolam 1 MG TAB PO PRN ×3 (00:40→17:01)
[2019-06-07] MEDS: HYDROmorphone 1 MG/1 ML INJ IV PRN ×4 (00:40→23:10)
[2019-06-07] MEDS: PIPERACIL/TAZOBACTA 4.5/NS 100 4.5 GM/100 ML VIAL IV SCH ×3 (06:32→22:26)
[2019-06-07 06:46] LABS: Basophils % (Auto) 0.1 % (0.0-1.8); Hematocrit 32.7 % (35.5-45.6); Lymphocytes # (Auto) 1.8 K/mm3 (1.2-5.4); Lymphocytes % (Auto) 11.7 % (13.4-35.0); Mean Corpuscular HGB Conc 34 % (32-34); Mean Corpuscular Volume 91 fl (84-94); Monocytes # (Auto) 0.9 K/mm3 (0.0-0.8); Platelet Count 205 K/mm3 (140-440); Red Blood Count 3.59 M/mm3 (3.65-5.03); Red Cell Distribution Width 14.5 % (13.2-15.2)
[2019-06-07 07:03] LABS: BUN/Creatinine Ratio 37; Blood Urea Nitrogen 41 mg/dL (9-20); Calcium 7.8 mg/dL (8.4-10.2); Hemolysis Index 1
[2019-06-07] MEDS: INSULIN REGULAR, HUMAN 100 UNITS/1 ML SUB-Q SCH ×4 (08:12→23:12)
[2019-06-07] MEDS: oxyCODONE 5 MG TAB PO PRN (09:24)
[2019-06-07] MEDS: METHADONE 10 MG TAB PO SCH ×2 (09:25→22:26)
[2019-06-07] MEDS: PANTOPRAZOLE 40 MG INJ IV SCH (09:27)
--- NOTE | 2019-06-07 09:57 | Progress Note ---
Assessment and Plan Acute gangrenous cholecystitis with choledocolithiasis / transaminitis S/p robotic assisted cholecystectomy on 06/06/2019. Pt tried to eat breakfast this AM and experienced some "burning" abdominal pain. GI and general surgery following. Leukocytosis / fever / suspected sepsis Improving. Suspected to be secondary to cholecystitis. Cont IV abx per general surgery. Sigmoid diverticulitis GI and general surgery following. Hypokalemia Improved. CAD s/p CABG x 3 (12/2013) Currently stable cardiac status. Pt denies any cardiac complaints. Lexiscan MPI stress test done 08/2018 which was negative for ischemia, EF 49%. LHC done 05/2015 showed patent grafts, normal LV. Echo done 06/04/2019 showed EF 50-55%, impaired relaxation, trace MR and TR. HTN HLP DM PVD Tobacco use Currently stable cardiac status. Pt may discharge home from cardiology standpoint on home cardiac regimen. Recommend pt follow up in our office with Dr. Candelaria within 1-2 weeks of hospital discharge ([phone]). The patient has been seen in conjunction with Dr. Billings who agrees with the assessment and plan of care. Subjective Date of service: 06/07/19 Principal diagnosis: choecystitis, choledocholithiasis Interval history: pt resting in bed, no current cardiac complaints. tried to eat breakfast this AM and experienced some "burning" abdominal pain. wants to go home. Objective Last Vital Signs Temp 98.7 F 06/07/19 07:48 Pulse 56 L 06/07/19 07:48 Resp 20 06/07/19 07:48 BP 137/36 06/07/19 07:48 Pulse Ox 89 06/07/19 07:48 - Physical Examination General: No Apparent Distress HEENT: Positive: PERRL Neck: Positive: neck supple Cardiac: Positive: Reg Rate and Rhythm, S1/S2 Lungs: Positive: Decreased Breath Sounds Neuro: Positive: Grossly Intact Abdomen: Positive: Unremarkable (s/p robotic cholecystectomy,06/06/2019.) /Rectal: Other (deferred) Skin: Positive: Clear Musculoskeletal: Normal Range of Motion Extremities: Present: normal. Absent: edema - Labs and Meds CBC 06/07/19 Range/Units 05:26 WBC 15.4 H (4.5-11.0) K/mm3 RBC 3.59 L (3.65-5.03) M/mm3 Hgb 11.0 L (11.8-15.2) gm/dl Hct 32.7 L (35.5-45.6) % Plt Count 205 (140-440) K/mm3 Lymph # 1.8 (1.2-5.4) K/mm3 [place] # 0.9 H (0.0-0.8) K/mm3 Eos # 0.0 (0.0-0.4) K/mm3 Baso # 0.0 (0.0-0.1) K/mm3 Comprehensive Metabolic Panel 06/07/19 Range/Units 05:26 Sodium 135 L (137-145) mmol/L Potassium 4.1 D (3.6-5.0) mmol/L Chloride 99.5 (98-107) mmol/L Carbon Dioxide 22 (22-30) mmol/L BUN 41 H (9-20) mg/dL Creatinine 1.1 (0.8-1.5) mg/dL Glucose 363 H (75-100) mg/dL Calcium 7.8 L (8.4-10.2) mg/dL
--- NOTE | 2019-06-07 11:49 | Progress Note ---
Objective Vital Signs - 12hr 06/07/19 06/07/19 06/07/19 00:40 01:10 02:29 Temperature 98.6 F Pulse Rate 57 L Respiratory 20 20 18 Rate Blood Pressure 121/58 O2 Sat by Pulse 94 Oximetry 06/07/19 06/07/19 06:35 07:48 Temperature 98.7 F Pulse Rate 56 L Respiratory 20 20 Rate Blood Pressure 137/36 O2 Sat by Pulse 89 Oximetry - Labs 06/07/19 05:26 06/07/19 05:26 Diabetes panel 06/07/19 Range/Units 05:26 Sodium 135 L (137-145) mmol/L Potassium 4.1 D (3.6-5.0) mmol/L Chloride 99.5 (98-107) mmol/L Carbon Dioxide 22 (22-30) mmol/L BUN 41 H (9-20) mg/dL Creatinine 1.1 (0.8-1.5) mg/dL Glucose 363 H (75-100) mg/dL Calcium 7.8 L (8.4-10.2) mg/dL Calcium panel 06/07/19 Range/Units 05:26 Calcium 7.8 L (8.4-10.2) mg/dL Pituitary panel 06/07/19 Range/Units 05:26 Sodium 135 L (137-145) mmol/L Potassium 4.1 D (3.6-5.0) mmol/L Chloride 99.5 (98-107) mmol/L Carbon Dioxide 22 (22-30) mmol/L BUN 41 H (9-20) mg/dL Creatinine 1.1 (0.8-1.5) mg/dL Glucose 363 H (75-100) mg/dL Calcium 7.8 L (8.4-10.2) mg/dL Adrenal panel 06/07/19 Range/Units 05:26 Sodium 135 L (137-145) mmol/L Potassium 4.1 D (3.6-5.0) mmol/L Chloride 99.5 (98-107) mmol/L Carbon Dioxide 22 (22-30) mmol/L BUN 41 H (9-20) mg/dL Creatinine 1.1 (0.8-1.5) mg/dL Glucose 363 H (75-100) mg/dL Calcium 7.8 L (8.4-10.2) mg/dL
--- NOTE | 2019-06-07 12:16 | Gastroenterology Progress Note ---
<ANTONIO COSTA - Last Filed: 06/07/19 12:30> Assessment and Plan 1.abdominal pain 2.elevated LFTs 3.acute cholecystitis 4.choledocholithiasis -afebrile -WBC trending down -repeat CMP for today pending -MRCP 06/05 positive for gallstones, acute cholecystitis, and choledocolithiasis -s/p ERCP 06/05/19 that showed: 1. Normal ampulla 2. PD cannulated with 0.035 guidewire but not injected 3. CBD cannulated with Spinctertome/0.035 guidewire - CBD minimal dilation (6mm) with distal filling defect consistent with stone - Medium sphincterotomy performed - 9mm balloon swept x 3 through CBD with removal of yellow stone, sludge, and some purulent material 4. No filling of cystic duct/GB noted 5. Incidental note made of severe erosive gastritis -s/p robotic assisted cholecystectomy yesterday 06/06/19 -clinically, patient is stable. Reports some abdominal soreness and mild epigastric postprandial "burning" this am which has now resolved (likely 2/2 erosive gastritis seen during ERCP as above) but denies N/V, significant abd pain, or signs of bleeding. -continue antibiotics x 5-7 days given pus present in CBD -continue PPI for gastritis -continue supportive care -patient to f/u in clinic upon discharge in ~3 weeks (hx of elevated LFTs 08/2018; if remain elevated recommend further workup as outpatient) -no further GI recommendations per GI standpoint at this time -will sign off and defer further management to surgery. Please call if needed. Subjective Date of service: 06/07/19 Principal diagnosis: choecystitis, choledocholithiasis Interval history: No acute distress. States he is ready to go home. Admits to abdominal soreness and mild epigastric postrandial discomfort described as "burning" this am that has now resolved but denies N/V, significant abd pain, or sign of bleeding. Objective - Constitutional Vitals: Temp Pulse Resp BP Pulse Ox 98.7 F 56 L 20 137/36 89 06/07/19 07:48 06/07/19 07:48 06/07/19 07:48 06/07/19 07:48 06/07/19 07:48 General appearance: no acute distress - EENT Eyes: PERRL, EOM intact ENT: hearing intact - Respiratory Respiratory effort: normal - Cardiovascular Rhythm: regular - Gastrointestinal General gastrointestinal: Present: soft, tender, normal bowel sounds, other (+surgical sites) - Neurologic Neurological: alert and oriented x3 - Labs CBC & Chem 7: 06/07/19 05:26 06/07/19 05:26 Labs: Laboratory Results - last 24 hr 06/06/19 06/06/19 06/06/19 15:24 20:14 23:15 WBC RBC Hgb Hct MCV MCH MCHC RDW Plt Count Lymph % (Auto) [place] % (Auto) Eos % (Auto) Baso % (Auto) Lymph # [place] # Eos # Baso # Seg Neutrophils % Seg Neutrophils # Sodium Potassium Chloride Carbon Dioxide Anion Gap BUN Creatinine Estimated GFR BUN/Creatinine Ratio Glucose POC Glucose 284 H 371 H 353 H Calcium 06/07/19 06/07/19 06/07/19 05:26 05:26 07:19 WBC 15.4 H RBC 3.59 L Hgb 11.0 L Hct 32.7 L MCV 91 MCH 31 MCHC 34 RDW 14.5 Plt Count 205 Lymph % (Auto) 11.7 L [place] % (Auto) 6.0 Eos % (Auto) 0.0 Baso % (Auto) 0.1 Lymph # 1.8 [place] # 0.9 H Eos # 0.0 Baso # 0.0 Seg Neutrophils % 82.2 H Seg Neutrophils # 12.7 H Sodium 135 L Potassium 4.1 D Chloride 99.5 Carbon Dioxide 22 Anion Gap 18 BUN 41 H Creatinine 1.1 Estimated GFR > 60 BUN/Creatinine Ratio 37 Glucose 363 H POC Glucose 358 H Calcium 7.8 L 06/07/19 11:19 WBC RBC Hgb Hct MCV MCH MCHC RDW Plt Count Lymph % (Auto) [place] % (Auto) Eos % (Auto) Baso % (Auto) Lymph # [place] # Eos # Baso # Seg Neutrophils % Seg Neutrophils # Sodium Potassium Chloride Carbon Dioxide Anion Gap BUN Creatinine Estimated GFR BUN/Creatinine Ratio Glucose POC Glucose 455 H Calcium <RUPA MCBRIDE - Last Filed: 06/07/19 18:17> Assessment and Plan Patient seen and examined. I have reviewed the advanced practitioner's evaluation, assessment, and plan, and agree with them. I note the following additions: Patient is continuing to improve significantly, tolerating liquid diet now. GI will sign off follow-up as outpatient as above - Patient Problems (1) Generalized abdominal pain Current Visit: Yes Status: Acute (2) Acute cholecystitis Current Visit: Yes Status: Acute (3) Elevated LFTs Current Visit: No Status: Chronic Objective - Constitutional Vitals: Temp Pulse Resp BP Pulse Ox 98.0 F 55 L 20 131/49 96 06/07/19 14:40 06/07/19 14:40 06/07/19 14:40 06/07/19 14:40 06/07/19 14:40 - Labs CBC & Chem 7: 06/07/19 05:26 06/07/19 15:45 Labs: Laboratory Results - last 24 hr 06/06/19 06/06/19 06/06/19 13:57 20:14 23:15 WBC RBC Hgb Hct MCV MCH MCHC RDW Plt Count Lymph % (Auto) [place] % (Auto) Eos % (Auto) Baso % (Auto) Lymph # [place] # Eos # Baso # Seg Neutrophils % Seg Neutrophils # Sodium Potassium Chloride Carbon Dioxide Anion Gap BUN Creatinine Estimated GFR BUN/Creatinine Ratio Glucose POC Glucose 386 H 371 H 353 H Calcium Total Bilirubin AST ALT Alkaline Phosphatase Total Protein Albumin Albumin/Globulin Ratio 06/07/19 06/07/19 06/07/19 05:26 05:26 07:19 WBC 15.4 H RBC 3.59 L Hgb 11.0 L Hct 32.7 L MCV 91 MCH 31 MCHC 34 RDW 14.5 Plt Count 205 Lymph % (Auto) 11.7 L [place] % (Auto) 6.0 Eos % (Auto) 0.0 Baso % (Auto) 0.1 Lymph # 1.8 [place] # 0.9 H Eos # 0.0 Baso # 0.0 Seg Neutrophils % 82.2 H Seg Neutrophils # 12.7 H Sodium 135 L Potassium 4.1 D Chloride 99.5 Carbon Dioxide 22 Anion Gap 18 BUN 41 H Creatinine 1.1 Estimated GFR > 60 BUN/Creatinine Ratio 37 Glucose 363 H POC Glucose 358 H Calcium 7.8 L Total Bilirubin AST ALT Alkaline Phosphatase Total Protein Albumin Albumin/Globulin Ratio 06/07/19 06/07/19 06/07/19 11:19 15:45 16:26 WBC RBC Hgb Hct MCV MCH MCHC RDW Plt Count Lymph % (Auto) [place] % (Auto) Eos % (Auto) Baso % (Auto) Lymph # [place] # Eos # Baso # Seg Neutrophils % Seg Neutrophils # Sodium 136 L Potassium 3.6 Chloride 101.9 Carbon Dioxide 22 Anion Gap 16 BUN 36 H Creatinine 1.0 Estimated GFR > 60 BUN/Creatinine Ratio 36 Glucose 267 H POC Glucose 455 H 277 H Calcium 7.7 L Total Bilirubin 1.90 H AST 66 H ALT 98 H Alkaline Phosphatase 152 H Total Protein 5.2 L Albumin 2.5 L Albumin/Globulin Ratio 0.9
[2019-06-07] MEDS ORDERED: POLYETHYLENE GLYCOL 3350 17 GM POWDER PO PRN (12:29)
[2019-06-07] MEDS ORDERED: METHADONE 10 MG TAB PO PRN (12:29)
[2019-06-07] MEDS ORDERED: ALPRAZolam 1 MG TAB PO PRN (12:29)
--- NOTE | 2019-06-07 12:32 | Discharge Summary ---
Providers - Providers Date of Admission: 06/04/19 07:52 Date of discharge: 06/08/19 Attending physician: DUYEN LACY 06/04/19 Consult to Case Management [CONS] Routine Services Needed at Discharge: Other Notified:: BETTE Comment:: dc planning Additional Physician Instructions: 06/04/19 07:47 Consult to Physician [CONS] Stat Comment: SHANIQUE Consulting Provider: FIONA KRAMER Physician Instructions: WAS NOTIFIED Reason For Exam: acute cholecystitis 06/04/19 08:38 Consult to Physician [CONS] Routine Comment: Consulting Provider: JESSENIA MENDEZ Physician Instructions: Reason For Exam: preop risk assessment 06/04/19 10:42 Consult to Physician [CONS] Routine Comment: SHANIQUE Consulting Provider: SAYRA ZEE Physician Instructions: WAS NOTIFIED/BETZAIDA Reason For Exam: elevated bilirubin ?choledocolithiasis 06/05/19 08:41 Physical Therapy Evaluation and Treat [CONS] Routine Comment: Reason For Exam: weakness Primary care physician: MACY GLEZ Hospitalization Reason for admission: abd pain Condition: Stable Hospital course: 74 yo M with hx of CAD s/p CABG 5 years ago, on plavix presented to ER with 2 weeks history of gradually worsening abdominal pain. Abdominal ultrasound revealed gallbladder wall thickening at 6mm with pericholecystic fluid. CBD 4.8mm. The patient was admitted with diagnosis of acute cholecystitis, choledocholithiasis/cholelithiasis. MRCP confirmed diagnosis with findings consistent with filling defect in distal CBD, choledocolithiasis. GI performed ERCP that revealed normal ampulla and PD cannulated with 0.035 guidewire but not injected. Also, CBD cannulated with Spinctertome/0.035 guidewire. Other findings include CBD minimal dilation (6mm) with distal filling defect consistent with stone, Medium sphincterotomy performed and 9mm balloon swept x 3 through CBD with removal of yellow stone, sludge, and some purulent material. No filling of cystic duct/GB noted. Incidental note made of severe erosive gastritis. Surgery performed robotic assisted cholecystectomy. Findings from the surgery revealed gangrenous gallbladder, very distended with thickened gallbladder wall and adhesions to the omentum The patient tolerated the procedure well and was felt to have received maximal hospital benefit. Dedicated discharge time 32 minutes. Disposition: DC- TO HOME OR SELFCARE Time spent for discharge: 32 - Discharge Diagnoses (1) Acute cholecystitis Status: Acute (2) Biliary obstruction Status: Acute (3) Generalized abdominal pain Status: Acute (4) S/P ERCP Status: Acute (5) Diabetes Status: Chronic (6) HLD (hyperlipidemia) Status: Chronic Qualifiers: Hyperlipidemia type: mixed hyperlipidemia Qualified Code(s): E78.2 - Mixed hyperlipidemia (7) HTN (hypertension) Status: Chronic Qualifiers: Hypertension type: essential hypertension Qualified Code(s): I10 - Essential (primary) hypertension (8) IDDM (insulin dependent diabetes mellitus) Status: Chronic (9) PVD (peripheral vascular disease) Status: Chronic Core Measure Documentation - Palliative Care Palliative Care/ Comfort Measures: Not Applicable - Core Measures Any of the following diagnoses?: none Exam - Constitutional Vitals: Temp Pulse Resp BP Pulse Ox 98.7 F 56 L 20 137/36 89 06/07/19 07:48 06/07/19 07:48 06/07/19 07:48 06/07/19 07:48 06/07/19 07:48 General appearance: Present: no acute distress, well-nourished - EENT Eyes: Present: PERRL ENT: hearing intact, clear oral mucosa - Neck Neck: Present: supple, normal ROM - Respiratory Respiratory effort: normal Respiratory: bilateral: CTA - Cardiovascular Heart Sounds: Present: S1 & S2. Absent: rub, click - Extremities Extremities: pulses symmetrical, No edema Peripheral Pulses: within normal limits - Abdominal General gastrointestinal: Present: soft, non-tender, non-distended, normal bowel sounds Male genitourinary: Present: normal - Integumentary Integumentary: Present: clear, warm, dry - Musculoskeletal Musculoskeletal: gait normal, strength equal bilaterally - Psychiatric Psychiatric: appropriate mood/affect, intact judgment & insight - Neurologic Neurologic: CNII-XII intact, moves all extremities Plan Activity: advance as tolerated Diet: regular Follow up with: MACY GLEZ MD [Primary Care Provider] - 7 Days RAH MAYES MD [Staff Physician] - 7 Days Prescriptions: Aspirin [Aspirin BABY CHEW TAB] 81 mg PO QDAY #30 Losartan [Cozaar] 50 mg PO QDAY #30 metFORMIN [Glucophage] 500 mg PO BID #30 Metoprolol [Lopressor TAB] 12.5 mg PO BID #60 Plavix 75 mg PO DAILY #30 oxyCODONE [roxiCODONE] 10 mg PO Q4H PRN #10 tablet PRN Reason: Pain, Moderate (4-6) Chlorthalidone [Thalitone] 25 mg PO QDAY #30 Fenofibrate [Tricor] 160 mg PO QDAY #30 ALPRAZolam [Xanax TAB] 1 mg PO TID PRN #20 PRN Reason: Anxiety Ezetimibe [Zetia] 10 mg PO QDAY #30
--- NOTE | 2019-06-07 13:15 | Progress Note ---
Assessment and Plan Assessment and plan: Acute cholecystitis with cholelithiasis MRCP revealed cholelithiasis, choledocholithiasis and acute cholecystitis. Surgery following. Plans for surgery today Continue iv fluids Continue Dilaudid iv prn for pain Continue Zosyn Sepsis. Present on admission. Etiology secondary to above. Continue to fo llow-up cultures. Acute kidney injury. Etiology secondary to sepsis/ATN and vasomotor nephropathy. Continue IV fluid hydration. Follow-up BMP. CAD s/p CABG Cardiology following Echocardiogram revealed EF 50 to 55% with left ventricular diastolic filling consistent with impaired relaxation. Diabetes mellitus typpe 2 Uncontrolled. Resume home insulin regimen. Sliding scale regular insulin. Continue to monitor BG closely. HTN Monitor Hyponatremia Hypokalemia Replace and recheck Sinus bradycardia Hold Metoprolol Hyperlipidemia PAD Full code status Discussed with patient and family at bedside - Patient Problems (1) Acute cholecystitis Current Visit: Yes Status: Acute (2) Biliary obstruction Current Visit: Yes Status: Acute (3) Generalized abdominal pain Current Visit: Yes Status: Acute (4) S/P ERCP Current Visit: Yes Status: Acute (5) Diabetes Current Visit: No Status: Chronic (6) HLD (hyperlipidemia) Current Visit: No Status: Chronic Qualifiers: Hyperlipidemia type: mixed hyperlipidemia Qualified Code(s): E78.2 - Mixed hyperlipidemia (7) HTN (hypertension) Current Visit: No Status: Chronic Qualifiers: Hypertension type: essential hypertension Qualified Code(s): I10 - Essential (primary) hypertension (8) IDDM (insulin dependent diabetes mellitus) Current Visit: No Status: Chronic (9) PVD (peripheral vascular disease) Current Visit: No Status: Chronic History Interval history: No new issues overnight. Patient with elevated blood sugars in the 400 range. Hospitalist Physical - Constitutional Vitals: Temp Pulse Resp BP Pulse Ox 98.7 F 56 L 20 137/36 89 06/07/19 07:48 06/07/19 07:48 06/07/19 07:48 06/07/19 07:48 06/07/19 07:48 General appearance: Present: no acute distress, well-nourished - EENT Eyes: Present: PERRL, EOM intact ENT: hearing intact, clear oral mucosa, dentition normal - Neck Neck: Present: supple, normal ROM - Respiratory Respiratory effort: normal Respiratory: bilateral: CTA - Cardiovascular Rhythm: regular Heart Sounds: Present: S1 & S2. Absent: gallop, rub - Extremities Extremities: no ischemia, No edema, Full ROM - Abdominal General gastrointestinal: soft, non-tender, non-distended, normal bowel sounds - Integumentary Integumentary: Present: clear, warm, dry - Neurologic Neurologic: CNII-XII intact, moves all extremities Results - Labs CBC & Chem 7: 06/07/19 05:26 06/07/19 05:26 Labs: Laboratory Last Values WBC 15.4 K/mm3 (4.5-11.0) H 06/07/19 05:26 RBC 3.59 M/mm3 (3.65-5.03) L 06/07/19 05:26 Hgb 11.0 gm/dl (11.8-15.2) L 06/07/19 05:26 Hct 32.7 % (35.5-45.6) L 06/07/19 05:26 MCV 91 fl (84-94) 06/07/19 05:26 MCH 31 pg (28-32) 06/07/19 05:26 MCHC 34 % (32-34) 06/07/19 05:26 RDW 14.5 % (13.2-15.2) 06/07/19 05:26 Plt Count 205 K/mm3 (140-440) 06/07/19 05:26 Lymph % (Auto) 11.7 % (13.4-35.0) L 06/07/19 05:26 [place]man % (Auto) 6.0 % (0.0-7.3) 06/07/19 05:26 Eos % (Auto) 0.0 % (0.0-4.3) 06/07/19 05:26 Baso % (Auto) 0.1 % (0.0-1.8) 06/07/19 05:26 Lymph # 1.8 K/mm3 (1.2-5.4) 06/07/19 05:26 [place]aufman # 0.9 K/mm3 (0.0-0.8) H 06/07/19 05:26 Eos # 0.0 K/mm3 (0.0-0.4) 06/07/19 05:26 Baso # 0.0 K/mm3 (0.0-0.1) 06/07/19 05:26 Add Manual Diff Complete 06/06/19 05:07 Total Counted 100 06/06/19 05:07 Seg Neutrophils % 82.2 % (40.0-70.0) H 06/07/19 05:26 Seg Neuts % (Manual) 87.0 % (40.0-70.0) H 06/06/19 05:07 Band Neutrophils % 0 % 06/06/19 05:07 Lymphocytes % (Manual) 9.0 % (13.4-35.0) L 06/06/19 05:07 Reactive Lymphs % (Man) 0 % 06/06/19 05:07 Monocytes % (Manual) 4.0 % (0.0-7.3) 06/06/19 05:07 Eosinophils % (Manual) 0 % (0.0-4.3) 06/06/19 05:07 Basophils % (Manual) 0 % (0.0-1.8) 06/06/19 05:07 Metamyelocytes % 0 % 06/06/19 05:07 Myelocytes % 0 % 06/06/19 05:07 Promyelocytes % 0 % 06/06/19 05:07 Blast Cells % 0 % 06/06/19 05:07 Nucleated RBC % Not Reportable 06/06/19 05:07 Seg Neutrophils # 12.7 K/mm3 (1.8-7.7) H 06/07/19 05:26 Seg Neutrophils # Man 18.5 K/mm3 (1.8-7.7) H 06/06/19 05:07 Band Neutrophils # 0.0 K/mm3 06/06/19 05:07 Lymphocytes # (Manual) 1.9 K/mm3 (1.2-5.4) 06/06/19 05:07 Abs React Lymphs (Man) 0.0 K/mm3 06/06/19 05:07 Monocytes # (Manual) 0.9 K/mm3 (0.0-0.8) H 06/06/19 05:07 Eosinophils # (Manual) 0.0 K/mm3 (0.0-0.4) 06/06/19 05:07 Basophils # (Manual) 0.0 K/mm3 (0.0-0.1) 06/06/19 05:07 Metamyelocytes # 0.0 K/mm3 06/06/19 05:07 Myelocytes # 0.0 K/mm3 06/06/19 05:07 Promyelocytes # 0.0 K/mm3 06/06/19 05:07 Blast Cells # 0.0 K/mm3 06/06/19 05:07 WBC Morphology Not Reportable 06/06/19 05:07 Hypersegmented Neuts Not Reportable 06/06/19 05:07 Hyposegmented Neuts Not Reportable 06/06/19 05:07 Hypogranular Neuts Not Reportable 06/06/19 05:07 Smudge Cells Not Reportable 06/06/19 05:07 Toxic Granulation Not Reportable 06/06/19 05:07 Toxic Vacuolation Not Reportable 06/06/19 05:07 Dohle Bodies Not Reportable 06/06/19 05:07 Pelger-Huet Anomaly Not Reportable 06/06/19 05:07 Eleonora Rods Not Reportable 06/06/19 05:07 Platelet Estimate Consistent w auto 06/06/19 05:07 Clumped Platelets Not Reportable 06/06/19 05:07 Plt Clumps, EDTA Not Reportable 06/06/19 05:07 Large Platelets Not Reportable 06/06/19 05:07 Giant Platelets Not Reportable 06/06/19 05:07 Platelet Satelliting Not Reportable 06/06/19 05:07 Plt Morphology Comment Not Reportable 06/06/19 05:07 RBC Morphology Not Reportable 06/06/19 05:07 Dimorphic RBCs Not Reportable 06/06/19 05:07 Polychromasia Not Reportable 06/06/19 05:07 Hypochromasia Not Reportable 06/06/19 05:07 Poikilocytosis Not Reportable 06/06/19 05:07 Anisocytosis Few 06/06/19 05:07 Microcytosis Not Reportable 06/06/19 05:07 Macrocytosis Few 06/06/19 05:07 Spherocytes Not Reportable 06/06/19 05:07 Pappenheimer Bodies Not Reportable 06/06/19 05:07 Sickle Cells Not Reportable 06/06/19 05:07 Target Cells Not Reportable 06/06/19 05:07 Tear Drop Cells Not Reportable 06/06/19 05:07 Ovalocytes Not Reportable 06/06/19 05:07 Helmet Cells Not Reportable 06/06/19 05:07 B[place] Bodies Not Reportable 06/06/19 05:07 [place] Rings Not Reportable 06/06/19 05:07 [place] Cells Not Reportable 06/06/19 05:07 Bite Cells Not Reportable 06/06/19 05:07 Crenated Cell Not Reportable 06/06/19 05:07 Elliptocytes Not Reportable 06/06/19 05:07 Acanthocytes (Spur) Not Reportable 06/06/19 05:07 Rouleaux Not Reportable 06/06/19 05:07 Hemoglobin C Crystals Not Reportable 06/06/19 05:07 Schistocytes Not Reportable 06/06/19 05:07 Malaria parasites Not Reportable 06/06/19 05:07 Huseyin Bodies Not Reportable 06/06/19 05:07 Hem Pathologist Commnt No 06/06/19 05:07 Sodium 135 mmol/L (137-145) L 06/07/19 05:26 Potassium 4.1 mmol/L (3.6-5.0) D 06/07/19 05:26 Chloride 99.5 mmol/L (98-107) 06/07/19 05:26 Carbon Dioxide 22 mmol/L (22-30) 06/07/19 05:26 Anion Gap 18 mmol/L 06/07/19 05:26 BUN 41 mg/dL (9-20) H 06/07/19 05:26 Creatinine 1.1 mg/dL (0.8-1.5) 06/07/19 05:26 Estimated GFR > 60 ml/min 06/07/19 05:26 BUN/Creatinine Ratio 37 % 06/07/19 05:26 Glucose 363 mg/dL (75-100) H 06/07/19 05:26 POC Glucose 455 (70-105) H 06/07/19 11:19 Calcium 7.8 mg/dL (8.4-10.2) L 06/07/19 05:26 Total Bilirubin 2.60 mg/dL (0.1-1.2) H 06/06/19 05:07 Direct Bilirubin 2.2 mg/dL (0-0.2) H 06/05/19 04:18 Indirect Bilirubin 1.1 mg/dL 06/05/19 04:18 AST 80 units/L (5-40) H 06/06/19 05:07 ALT 137 units/L (7-56) H 06/06/19 05:07 Alkaline Phosphatase 223 units/L (35-129) H 06/06/19 05:07 Troponin T < 0.010 ng/mL (0.00-0.029) 06/04/19 05:27 Total Protein 5.3 g/dL (6.3-8.2) L 06/06/19 05:07 Albumin 2.6 g/dL (3.9-5) L 06/06/19 05:07 Albumin/Globulin Ratio 1.0 % 06/06/19 05:07 Lipase 13 units/L (13-60) 06/05/19 11:53 Urine Color [place] (Yellow) 06/04/19 05:39 Urine Turbidity Clear (Clear) 06/04/19 05:39 Urine pH 5.0 (5.0-7.0) 06/04/19 05:39 Ur Specific [place] 1.021 (1.003-1.030) 06/04/19 05:39 Urine Protein <15 mg/dl mg/dL (Negative) 06/04/19 05:39 Urine Glucose (UA) >=500 mg/dL (Negative) 06/04/19 05:39 Urine Ketones Tr mg/dL (Negative) 06/04/19 05:39 Urine Blood Sm (Negative) 06/04/19 05:39 Urine Nitrite Neg (Negative) 06/04/19 05:39 Urine Bilirubin Neg (Negative) 06/04/19 05:39 Urine Urobilinogen 2.0 mg/dL (<2.0) 06/04/19 05:39 Ur Leukocyte Esterase Neg (Negative) 06/04/19 05:39 Urine WBC (Auto) < 1.0 /HPF (0.0-6.0) 06/04/19 05:39 Urine RBC (Auto) 3.0 /HPF (0.0-6.0) 06/04/19 05:39 U Epithel Cells (Auto) < 1.0 /HPF (0-13.0) 06/04/19 05:39 Blood Type O POSITIVE 06/05/19 11:53 Antibody Screen Negative 06/05/19 11:53 Active Medications - Current Medications Current Medications: Generic Name Dose Route Start Last Admin Trade Name Freq PRN Reason Stop Dose Admin Acetaminophen 650 mg 06/04/19 11:25 06/05/19 23:17 Tylenol PO 650 mg Q4H PRN Administration Pain MILD(1-3)/Fever >100.5/REBOLLEDO Alprazolam 1 mg 06/05/19 17:29 06/07/19 09:25 Xanax PO 1 mg Q8H PRN Administration Anxiety Chlorthalidone 25 mg 06/08/19 10:00 Thalitone PO QDAY [facility] Ezetimibe 10 mg 06/08/19 10:00 Zetia PO QDAY [facility] Fenofibrate 145 mg 06/08/19 10:00 Tricor PO QDAY [facility] Hydromorphone HCl 1 mg 06/04/19 15:58 06/07/19 06:35 Dilaudid IV 1 mg Q3H PRN Administration Pain , Severe (7-10) Piperacillin Sod/Tazobactam Sod 4.5 gm in 100 mls @ 200 mls/hr 06/04/19 14:00 06/07/19 06:32 Zosyn/Ns 4.5gm/100ml IV 200 mls/hr Q8HR [facility] Administration Protocol Sodium Chloride 1,000 mls @ 50 mls/hr 06/05/19 12:30 Nacl 0.9% 1000 Ml IV DIRECT [facility] Insulin Glargine 40 units 06/07/19 22:00 Lantus SUB-Q QHS [facility] Insulin Human Lispro 20 unit 06/07/19 17:00 Humalog SUB-Q TIDDIAB [facility] Insulin Human Regular 0 units 06/05/19 16:30 06/07/19 11:32 Humulin R SUB-Q 8 units ACHS [facility] Administration Protocol Lorazepam 1 mg 06/04/19 15:58 Ativan IV Q8H PRN Anxiety Losartan Potassium 50 mg 06/08/19 10:00 Cozaar PO QDAY [facility] Metformin HCl 500 mg 06/07/19 17:00 Glucophage PO BIDDIAB [facility] Methadone HCl 10 mg 06/05/19 22:00 06/07/19 09:25 Dolophine PO 10 mg BID JF Administration Metoprolol Tartrate 12.5 mg 06/07/19 22:00 Metoprolol PO BID [facility] Ondansetron HCl 4 mg 06/04/19 15:59 06/06/19 07:08 Zofran IV 4 mg Q6H PRN Administration Nausea And Vomiting Oxycodone HCl 10 mg 06/06/19 13:19 06/07/19 09:24 Roxicodone PO 10 mg Q4H PRN Administration Pain, Moderate (4-6) Pantoprazole Sodium 40 mg 06/05/19 15:00 06/07/19 09:27 Protonix IV 40 mg QDAY JF Administration Polyethylene Glycol 17 gm 06/07/19 11:06 Miralax 3350 PO QDAY PRN Constipation Sodium Chloride 10 ml 06/04/19 22:00 06/07/19 09:26 Sodium Chloride Flush Syringe 10 Ml IV 10 ml BID JF Administration Sodium Chloride 10 ml 06/04/19 11:25 Sodium Chloride Flush Syringe 10 Ml IV PRN PRN LINE FLUSH
--- NOTE | 2019-06-07 13:22 | Progress Note ---
Assessment and Plan - Patient Problems (1) Acute cholecystitis Current Visit: Yes Status: Acute Plan to address problem: Pt stable. s/p robotic assisted lap cm - POD#1. He is to be doing well. Rec: 1) Diet as tolerated 2) d/c home when tolerating PO intake without pain (report last night from nurses that the patient had pain when eating. Patient thinks it may be more muscular.) 3) May resume plavix tomorrow. 4) Abx at home for 1 week 5) f/u with Dr. Waldrop in 1 week 6) May shower tomorrow. Pat dry wounds. 7) High blood sugars - mgmt per Hospitalists Please call with questions. Subjective Date of service: 06/07/19 Patient Reports: Positive: no new complaints, feels better, pain is less. Negative: nausea, vomiting Objective Vital Signs - 12hr 06/07/19 06/07/19 06/07/19 02:29 06:35 07:48 Temperature 98.6 F 98.7 F Pulse Rate 57 L 56 L Respiratory 18 20 20 Rate Blood Pressure 121/58 137/36 O2 Sat by Pulse 94 89 Oximetry - General physical appearance no distress, no pain, other (siiting on edge of bed. Looks good) - Respiratory normal expansion, normal respiratory effort - Abdomen soft, tender (mild), distended (vs protuberance?), surgical scars (C/D/I) - Psychiatric oriented to time, oriented to person, oriented to place, speech is normal, memory intact - Labs 06/07/19 05:26 06/07/19 05:26 Diabetes panel 06/07/19 Range/Units 05:26 Sodium 135 L (137-145) mmol/L Potassium 4.1 D (3.6-5.0) mmol/L Chloride 99.5 (98-107) mmol/L Carbon Dioxide 22 (22-30) mmol/L BUN 41 H (9-20) mg/dL Creatinine 1.1 (0.8-1.5) mg/dL Glucose 363 H (75-100) mg/dL Calcium 7.8 L (8.4-10.2) mg/dL Calcium panel 06/07/19 Range/Units 05:26 Calcium 7.8 L (8.4-10.2) mg/dL Pituitary panel 06/07/19 Range/Units 05:26 Sodium 135 L (137-145) mmol/L Potassium 4.1 D (3.6-5.0) mmol/L Chloride 99.5 (98-107) mmol/L Carbon Dioxide 22 (22-30) mmol/L BUN 41 H (9-20) mg/dL Creatinine 1.1 (0.8-1.5) mg/dL Glucose 363 H (75-100) mg/dL Calcium 7.8 L (8.4-10.2) mg/dL Adrenal panel 06/07/19 Range/Units 05:26 Sodium 135 L (137-145) mmol/L Potassium 4.1 D (3.6-5.0) mmol/L Chloride 99.5 (98-107) mmol/L Carbon Dioxide 22 (22-30) mmol/L BUN 41 H (9-20) mg/dL Creatinine 1.1 (0.8-1.5) mg/dL Glucose 363 H (75-100) mg/dL Calcium 7.8 L (8.4-10.2) mg/dL
[2019-06-07] MEDS: POLYETHYLENE GLYCOL 3350 17 GM POWDER PO PRN (14:34)
[2019-06-07 16:25] LABS: Alanine Aminotransferase 98 units/L (7-56); Albumin 2.5 g/dL (3.9-5); BUN/Creatinine Ratio 36; Blood Urea Nitrogen 36 mg/dL (9-20); Calcium 7.7 mg/dL (8.4-10.2); Hemolysis Index 9
[2019-06-07] MEDS: INSULIN LISPRO 100 UNIT/ML SUB-Q SCH (16:48)
[2019-06-07] MEDS: metFORMIN 500 MG TAB PO SCH (16:49)
[2019-06-07] MEDS ORDERED: METOPROLOL TARTRATE 25 MG TAB PO SCH (22:00)
[2019-06-07] MEDS ORDERED: INSULIN GLARGINE 100 UNITS/ML SUB-Q SCH (22:00)
[2019-06-07] MEDS ORDERED: metFORMIN 500 MG TAB PO SCH (22:00)
[2019-06-07] MEDS ORDERED: INSULIN DETEMIR 40 UNIT SQ SCH (22:00)
[2019-06-08] MEDS: ALPRAZolam 1 MG TAB PO PRN (02:35)
[2019-06-08] MEDS: POLYETHYLENE GLYCOL 3350 17 GM POWDER PO PRN (02:36)
[2019-06-08] MEDS: HYDROmorphone 1 MG/1 ML INJ IV PRN (02:36)
[2019-06-08] MEDS: PIPERACIL/TAZOBACTA 4.5/NS 100 4.5 GM/100 ML VIAL IV SCH (07:01)
[2019-06-08] MEDS: INSULIN REGULAR, HUMAN 100 UNITS/1 ML SUB-Q SCH (07:37)
[2019-06-08] MEDS: oxyCODONE 5 MG TAB PO PRN (07:37)
[2019-06-08] MEDS: metFORMIN 500 MG TAB PO SCH (07:37)
[2019-06-08] MEDS: INSULIN LISPRO 100 UNIT/ML SUB-Q SCH (07:38)
[2019-06-08 07:57] VITALS: BP 133/51
[2019-06-08] MEDS ORDERED: LOSARTAN 50 MG TAB PO SCH (10:00)
[2019-06-08] MEDS ORDERED: LOSARTAN 50 MG PO SCH (10:00)
[2019-06-08] MEDS ORDERED: CHLORTHALIDONE 25 MG TAB PO SCH (10:00)
[2019-06-08] MEDS ORDERED: EZETIMIBE 10 MG TAB PO SCH (10:00)
[2019-06-08] MEDS ORDERED: FENOFIBRATE 145 MG TAB PO SCH (10:00)
[2019-06-08] MEDS: METHADONE 10 MG TAB PO SCH (10:48)
[2019-06-08] MEDS: PANTOPRAZOLE 40 MG INJ IV SCH (10:50)
--- NOTE | 2019-06-08 11:00 | Progress Note ---
Assessment and Plan - Patient Problems (1) Acute cholecystitis Current Visit: Yes Status: Acute Plan to address problem: Pt stable. s/p robotic assisted lap cm - POD#2. He is to be doing well. blood sugars are better Rec: 1) Diet as tolerated 2) ok to d/c home today from our perspective 3) May resume plavix today. 4) Abx at home for 1 week 5) f/u with Dr. Waldrop in 1 week 6) May shower today. Pat dry wounds. 7) continue to work on good blood sugar control Please call with questions. Subjective Date of service: 06/08/19 Patient Reports: Positive: no new complaints, feels better, tolerating liquids well, other (wants to go home) Objective Vital Signs - 12hr 06/07/19 06/07/19 06/08/19 23:10 23:40 02:30 Temperature Pulse Rate Respiratory 20 20 Rate Respiratory 20 Rate [Abdomen] Blood Pressure O2 Sat by Pulse Oximetry 06/08/19 06/08/19 06/08/19 02:36 02:54 03:06 Temperature 98.3 F Pulse Rate 46 L Respiratory 20 18 20 Rate Respiratory Rate [Abdomen] Blood Pressure 136/64 O2 Sat by Pulse 94 Oximetry 06/08/19 07:34 Temperature 98.0 F Pulse Rate 50 L Respiratory 18 Rate Respiratory Rate [Abdomen] Blood Pressure 133/51 O2 Sat by Pulse 93 Oximetry - General physical appearance no distress, no pain, other (standing in hallway) - Respiratory normal expansion, normal respiratory effort - Abdomen soft, tender (mild), distended (mild), not guarding, not rigid, surgical scars (C/D/I) - Psychiatric oriented to time, oriented to person, oriented to place, speech is normal, memory intact - Labs 06/07/19 05:26 06/07/19 15:45 Diabetes panel 06/07/19 Range/Units 15:45 Sodium 136 L (137-145) mmol/L Potassium 3.6 (3.6-5.0) mmol/L Chloride 101.9 (98-107) mmol/L Carbon Dioxide 22 (22-30) mmol/L BUN 36 H (9-20) mg/dL Creatinine 1.0 (0.8-1.5) mg/dL Glucose 267 H (75-100) mg/dL Calcium 7.7 L (8.4-10.2) mg/dL AST 66 H (5-40) units/L ALT 98 H (7-56) units/L Alkaline Phosphatase 152 H (35-129) units/L Total Protein 5.2 L (6.3-8.2) g/dL Albumin 2.5 L (3.9-5) g/dL Calcium panel 06/07/19 Range/Units 15:45 Calcium 7.7 L (8.4-10.2) mg/dL Albumin 2.5 L (3.9-5) g/dL Pituitary panel 06/07/19 Range/Units 15:45 Sodium 136 L (137-145) mmol/L Potassium 3.6 (3.6-5.0) mmol/L Chloride 101.9 (98-107) mmol/L Carbon Dioxide 22 (22-30) mmol/L BUN 36 H (9-20) mg/dL Creatinine 1.0 (0.8-1.5) mg/dL Glucose 267 H (75-100) mg/dL Calcium 7.7 L (8.4-10.2) mg/dL Adrenal panel 06/07/19 Range/Units 15:45 Sodium 136 L (137-145) mmol/L Potassium 3.6 (3.6-5.0) mmol/L Chloride 101.9 (98-107) mmol/L Carbon Dioxide 22 (22-30) mmol/L BUN 36 H (9-20) mg/dL Creatinine 1.0 (0.8-1.5) mg/dL Glucose 267 H (75-100) mg/dL Calcium 7.7 L (8.4-10.2) mg/dL Total Bilirubin 1.90 H (0.1-1.2) mg/dL AST 66 H (5-40) units/L ALT 98 H (7-56) units/L Alkaline Phosphatase 152 H (35-129) units/L Total Protein 5.2 L (6.3-8.2) g/dL Albumin 2.5 L (3.9-5) g/dL
--- NOTE | 2019-06-08 12:11 | Fluoroscopy Report ---
FLUOROSCOPY ERCP BILIARY DUCT HISTORY: Choledocholithiasis FINDINGS: 52 seconds of fluoroscopy time was provided by radiology during ERCP by gastroenterology. 1 0 fluoroscopic images are presented. The images demonstrate a filling defect in the distal common swapnil e duct consistent with a stone. The stone was removed by balloon sweep technique. Papillotomy was per formed. The final image demonstrates no filling defect or dilatation within the common bile duct. The pancreatic duct was not injected. Nonfilling of the cystic duct was noted by the coal pulverizer operator which could indicate acute cholecystitis. Please correlate with the procedural report as needed. Signer Name: Enrrique Daily Jr, MD Signed: 06/08/2019 12:06 PM Workstation Name: [id number]
[2019-06-09] MEDS ORDERED: PANTOPRAZOLE 40 MG TAB PO SCH (10:00)
--- NOTE | 2019-06-11 09:49 | Operative Report ---
PREOPERATIVE DIAGNOSES: Acute cholecystitis with choledocholithiasis. POSTOPERATIVE DIAGNOSES: Acute gangrenous cholecystitis with choledocholithiasis. FINDINGS: Gangrenous gallbladder, very distended with thickened gallbladder wall and adhesions to the omentum. PROCEDURE: Robotic-assisted cholecystectomy. ANESTHESIA: General endotracheal anesthesia, local. SURGEON: Allison Waldrop D.O. R[employer]K [employer] COMPLIANCE ANALYTICS DIRECTOR: Luz Carver M.D. ESTIMATED BLOOD LOSS: 50 mL. PATHOLOGY: Gallbladder. SPECIMEN DISPOSITION: To lab. CONDITION ON DISCHARGE: The patient is stable to PACU. HISTORY OF PRESENT ILLNESS AND INDICATION: The patient is a 74-year-old male who presented to the Emergency Room with complaints of severe upper abdominal pain. He was found to have choledocholithiasis and acute cholecystitis. ERCP was performed by GI with extraction of the stone from the common bile duct. Recommendation was to proceed with cholecystectomy. The patient was maintained on antibiotics throughout his hospital stay. All risks, benefits and alternatives to surgery were discussed with the patient and his family at the bedside. Consent was obtained. PROCEDURE IN DETAIL: The patient was identified in preoperative area, taken back to the operating room and placed on the operating table in supine position. After anesthesia was induced, abdomen was prepped and draped in the usual sterile fashion. Local anesthetic was infiltrated to all skin incision sites prior to incision. A sreedhar incision was made in the left upper quadrant through which a Veress needle was inserted. The Veress needle position was confirmed using saline drop test and the abdomen insufflated to 15 mmHg. Once the abdomen was insufflated, the Veress needle was removed and the incision extended. A 5 mm Optiview trocar placed through this incision. The abdomen was inspected. There was no underlying injury to any of the abdominal structures. A 12 mm supraumbilical and 2 right upper quadrant 8 mm robotic trocars were then placed under direct visualization. The patient was placed in reverse Trendelenburg and tilted to the left. The gallbladder was obscured by adherent omentum. This omentum was dissected meticulously using blunt dissection until part of the gallbladder was visualized. The gallbladder was gangrenous. It was also very distended and hard and very firm. Therefore, it was decided to decompress the gallbladder. A laparoscopic needle and 30 mL syringe were used to decompress the gallbladder. An 80 mL of green bile was decompressed from the gallbladder. The robot was then docked with a monopolar hook in arm #1 and a Cadiere grasper in arm #2 and a ProGrasp in arm #3. The surgeon was transferred to the console. The fundus of the gallbladder was grasped and retracted cephalad. The remainder of the omental adhesions were carefully taken down using a combination of blunt dissection and electrocautery. The gallbladder was very large and the wall was thickened. Once all the adhesions were carefully taken down, the decision was made to perform a dome down dissection due to severe inflammation at the neck of the gallbladder. The gallbladder was dissected off the liver bed, very meticulously using hook electrocautery. The liver was very friable and an additional 5 mm banking assistant trocar was placed in the left upper quadrant by Dr. Carver under direct visualization. This was used to facilitate suctioning and irrigation during the case. During the dissection we went back and forth between the dome down approach and dissecting at the neck of the gallbladder. The cystic duct and artery were carefully skeletonized and 2 clips were placed to the proximal aspect of the cystic artery, which was then ligated distal to this using hook electrocautery. The dome down dissection was then completed and the cystic duct was seen as the only structure tethering the gallbladder in place. There is no other tubular structure seen. The critical view had been obtained. The cystic duct was thickened; however, 3 clips were able to be applied to the proximal aspect and 1 distally. The cystic duct was transected in between the clips by the banking assistant surgeon using EndoShears. The gallbladder was placed in the right upper quadrant and gallbladder fossa and liver bed were copiously irrigated with saline and hemostasis very meticulously achieved with a combination of pressure and electrocautery. Clips were visualized and intact. There was no bleeding or bile leakage seen from the liver bed. The robot was then undocked and the surgeon scrubbed back in. The remainder of the case performed laparoscopically. Gallbladder was placed in an EndoCatch bag and removed via the 12 mm port. The abdomen was once again irrigated and checked for hemostasis. Surgicel was placed in the liver bed as well as Kallie powder. Once again, there was no bleeding or bile leakage seen from the area at the end of the case. The patient was placed in neutral position and the 12 mm port fascia closed with interrupted 0 Vicryl suture using the Shaheed-Nick device. The skin incisions once again infiltrated with local anesthetic and closed with 4-0 Monocryl subcuticular stitches and skin glue. At the end of the case, all sponge, instrument, sharp counts were correct x 2. The patient was awoken from anesthesia, extubated, and taken to PACU in stable condition. JOB# [id number] NK/DO
== END 2019-06-08 12:30 | disposition home or self-care (01) | DRG 853 ==
LOC: ED 05:04 → 2B-ACE 07:52
PROVIDERS: ADMIT Internal Medicine; ATTEND Hospitalist
PROC: 0F798ZZ Dilation of Common Bile Duct, Via Natural or Artificial Opening Endoscopic (ICD-10-PCS; principal; 2019-06-05)
PROC: 0F778ZZ Dilation of Common Hepatic Duct, Via Natural or Artificial Opening Endoscopic (ICD-10-PCS; 2019-06-05)
PROC: BF131ZZ Fluoroscopy of Gallbladder and Bile Ducts using Low Osmolar Contrast (ICD-10-PCS; 2019-06-05)
PROC: 0FT44ZZ Resection of Gallbladder, Percutaneous Endoscopic Approach (ICD-10-PCS; 2019-06-06)
PROC: 8E0W4CZ Robotic Assisted Procedure of Trunk Region, Percutaneous Endoscopic Approach (ICD-10-PCS; 2019-06-06)
DX: A41.9 Sepsis, unspecified organism (principal); N17.0 Acute kidney failure with tubular necrosis; E87.1 Hypo-osmolality and hyponatremia; K57.32 Diverticulitis of large intestine without perforation or abscess without bleeding; K80.43 Calculus of bile duct with acute cholecystitis with obstruction; I25.10 Atherosclerotic heart disease of native coronary artery without angina pectoris; E11.51 Type 2 diabetes mellitus with diabetic peripheral angiopathy without gangrene; E87.6 Hypokalemia; F11.90 Opioid use, unspecified, uncomplicated; K82.A1 Gangrene of gallbladder in cholecystitis; I10 Essential (primary) hypertension; F17.210 Nicotine dependence, cigarettes, uncomplicated; K29.70 Gastritis, unspecified, without bleeding; R74.0 Nonspecific elevation of levels of transaminase and lactic acid dehydrogenase [LDH]; E78.2 Mixed hyperlipidemia; G89.29 Other chronic pain; R00.1 Bradycardia, unspecified; Z95.1 Presence of aortocoronary bypass graft; Z79.4 Long term (current) use of insulin; Z79.899 Other long term (current) drug therapy; Z79.82 Long term (current) use of aspirin
CPT/HCPCS: 36415; 74177; 74181; 74328; 76705; 80048; 80053; 81001; 82247; 82248; 82962; 83690; 84484; 85007; 85025; 85027; 86850; 86900; 86901; 87116; 88304; 93005; 93010; 93306; G0378; A4217; C1726; C9113; J0330; J1100; J1170; J1610; J1815; J2270; J2370; J2405; J2543; J2597; J2704; J2710; J3010; J3480; J7030; J7040; Q9967